=== PATIENT | female | born 1940 | race Caucasian/White ===

== ENCOUNTER 2017-09-15 15:52 | Emergency (ER) | payer MEDICARE, OTHER ==
[2017-09-15] MEDS ORDERED: Ondansetron 4 MG Tab.DIS PO ONE (16:43)
[2017-09-15] MEDS ORDERED: Ketorolac 30 MG/ML SDV IM ONE (16:43)
--- NOTE | 2017-09-15 16:49 | EDM.PDOC ---
ED HPI GENERAL MEDICAL PROBLEM - General Chief Complaint: General Stated Complaint: HEADACHE,VOMITTING Time Seen by Provider: 09/15/17 16:15 Source of Information: Reports: Patient, Family, Old Records History Limitations: Reports: No Limitations - History of Present Illness INITIAL COMMENTS - FREE TEXT/NARRATIVE: Karlie comes into [facility] ED for assessment of headaches over the past 24 hrs, associated with some nausea and emesis x 3 since midnight. There is no injury hx , no fever, chills or sweats, or hx of vascular headaches. Headache is aching, sharp at times, global, with some tenderness at both temples. She has tried Excedrin and Tylenol without benefit. She did take Amitryptiline 25 mg at 2 pm today which has improved headache sxs. She has been on this medication for over 30 years primarily to help with sleep. headache Pain Score (Numeric/FACES): 6 - Related Data Allergies Allergy/AdvReac Type Severity Reaction Status Date / Time ibuprofen AdvReac Mild Vomiting Verified 09/15/17 16:05 Home Meds: Home Meds Albuterol Sulfate [Proair Hfa] 2 inhalation IH Q6H PRN 11/14/13 [History] Meloxicam [Mobic] 7.5 mg PO BID 11/14/13 [History] Metoprolol Succinate [Toprol XL] 25 mg PO DAILY 11/14/13 [History] Multivitamin with Minerals [Multiple Vitamin] 1 tab PO DAILY 11/14/13 [History] Cholecalciferol (Vitamin D3) [Vitamin D3] 1,000 unit PO DAILY 04/23/16 [History] Simvastatin [Zocor] 40 mg PO DAILY 04/24/16 [History] Acetaminophen [Tylenol Arthritis Pain] 650 mg PO Q6H PRN 09/15/17 [History] Amitriptyline [Elavil] 25 mg PO BEDTIME 09/15/17 [History] Aspirin 81 mg PO DAILY 09/15/17 [History] Calcium Carbonate [Calcium] 1,200 mg PO DAILY 09/15/17 [History] Carboxymethylcellulose Sodium [Thera Tears] 1 drop EYEBOTH DAILY 09/15/17 [ History] Ferrous Gluconate [Iron] 300 mg PO DAILY 09/15/17 [History] L.acidoph,Paracasei, B.lactis [Probiotic] 1 cap PO DAILY 09/15/17 [History] predniSONE [Prednisone] 60 mg PO DAILY #14 tablet 09/15/17 [Rx] Past Medical History HEENT History: Reports: Hard of Hearing, Impaired Vision Cardiovascular History: Reports: Heart Murmur, High Cholesterol, Hypertension Respiratory History: Reports: Asthma Gastrointestinal History: Reports: GERD Other Gastrointestinal History: hx of c diff Genitourinary History: Reports: Urinary Incontinence Other Genitourinary History: at times Musculoskeletal History: Reports: Other (See Below) Other Musculoskeletal History: oesteomylitis Psychiatric History: Reports: Depression - Infectious Disease History Infectious Disease History: Reports: C-Difficile Social & Family History - Family History Family Medical History: Unobtainable - Tobacco Use Smoking Status *Q: Never Smoker Second Hand Smoke Exposure: No - Caffeine Use Caffeine Use: Reports: Coffee - Alcohol Use Days Per Week of Alcohol Use: 0 - Recreational Drug Use Recreational Drug Use: No ED ROS GENERAL - Review of Systems Review Of Systems: See Below Constitutional: Reports: Malaise, Decreased Appetite HEENT: Reports: No Symptoms Respiratory: Reports: No Symptoms Cardiovascular: Reports: No Symptoms Endocrine: Reports: No Symptoms GI/Abdominal: Reports: Nausea, Vomiting : Reports: No Symptoms Musculoskeletal: Reports: No Symptoms Skin: Reports: No Symptoms Neurological: Reports: Headache Psychiatric: Reports: No Symptoms Hematologic/Lymphatic: Reports: No Symptoms Immunologic: Reports: No Symptoms ED EXAM, GENERAL - Physical Exam Exam: See Below Exam Limited By: No Limitations General Appearance: Alert, WD/WN, Anxious, Mild Distress Eye Exam: Bilateral Eye: EOMI, Normal Inspection, PERRL Ears: Normal External Exam, Hearing Loss Nose: Normal Inspection Throat/Mouth: Normal Inspection, Normal Oropharynx Head: Normocephalic, Other (scalp tenderness overlying both temporalis mm) Neck: Normal Inspection, Supple, Non-Tender, Full Range of Motion Respiratory/Chest: Lungs Clear, Normal Breath Sounds, Chest Non-Tender Cardiovascular: Regular Rate, Rhythm GI/Abdominal: Normal Bowel Sounds, Soft, Non-Tender, No Organomegaly, No Distention, No Mass Back Exam: Normal Inspection Extremities: Normal Inspection Neurological: Alert, Oriented, CN II-XII Intact, Normal Cognition, Normal Gait, No Motor/Sensory Deficits Psychiatric: Normal Affect, Anxious Skin Exam: Warm, Dry, Intact, Normal Color Lymphatic: No Adenopathy Course - Vital Signs Text/Narrative:: Following assessment at the [facility] ED, I administered Toradol 30 mg and Zofran 4 mg ODT. Headache improved to a 3-4/10, and nausea subsided; screening labs were performed noting CRP 6.4, ESR 42, CBC and BMP baseline for age. In view of some tenderness overlying temporalis mm, and location for temporal vasculitis, I could not rule out GCA. This was discussed at length with patient and her sister. I have elected to begin Prednisone 60 mg qd pending appt with PCP and further evaluation. Last Recorded V/S: Last Vital Signs Temp 36.7 C 09/15/17 15:55 Pulse 105 H 09/15/17 15:55 Resp 15 09/15/17 15:55 BP 143/105 H 09/15/17 15:55 Pulse Ox 100 09/15/17 15:55 - Orders/Labs/Meds Labs: Laboratory Tests 09/15/17 09/15/17 09/15/17 Range/Units 16:52 16:52 16:52 WBC 12.2 H (4.5-12.0) X10-3/uL RBC 4.50 (3.23-5.20) x10(6)uL Hgb 13.3 D (11.5-15.5) g/dL Hct 39.5 D (30.0-51.3) % MCV 87.8 (80-96) fL MCH 29.6 (27.7-33.6) pg MCHC 33.7 (32.2-35.4) g/dL RDW 12.7 (11.5-15.5) % Plt Count 263 (125-369) X10(3)uL MPV 8.3 (7.4-10.4) fL Neut % (Auto) 80.6 (46-82) % Lymph % (Auto) 12.3 L (13-37) % Turner % (Auto) 6.5 (4-12) % Eos % (Auto) 0 L (1.0-5.0) % Baso % (Auto) 0 (0-2) % Neut # (Auto) 9.9 H (1.6-8.3) # Lymph # (Auto) 1.5 (0.6-5.0) # Turner # (Auto) 0.8 (0.0-1.3) # Eos # (Auto) 0.0 (0.0-0.8) # Baso # (Auto) 0.0 (0.0-0.2) # ESR 42 H (0-20) mm/hr Sodium 139 (135-145) mmol/L Potassium 4.2 (3.5-5.3) mmol/L Chloride 102 (100-110) mmol/L Carbon Dioxide 25 (21-32) mmol/L BUN 19 H (7-18) mg/dL Creatinine 1.1 H (0.55-1.02) mg/dL Est Cr Clr Drug Dosing 31.29 mL/min Estimated GFR (MDRD) 48 L (>60) BUN/Creatinine Ratio 17.3 (9-20) Glucose 119 H (80-116) mg/dL Calcium 10.0 (8.6-10.2) mg/dL Total Bilirubin 0.8 (0.1-1.3) mg/dL AST 26 H (5-25) IU/L ALT 27 (12-36) U/L Alkaline Phosphatase 117 H (56-112) IU/L C-Reactive Protein 6.4 H* (0.5-0.9) mg/dL Total Protein 8.7 H (6.0-8.0) g/dL Albumin 4.3 (3.2-4.6) g/dL Globulin 4.4 g/dL Albumin/Globulin Ratio 1.0 Meds: Medications Discontinued Medications Generic Name Dose Route Start Last Admin Trade Name Freq PRN Reason Stop Dose Admin Ketorolac Tromethamine 30 mg 09/15/17 16:43 09/15/17 16:57 Toradol IM 09/15/17 16:44 30 mg ONETIME ONE Administration Ondansetron HCl 4 mg 09/15/17 16:43 09/15/17 16:56 Zofran Odt PO 09/15/17 16:44 4 mg ONETIME ONE Administration Departure - Departure Time of Disposition: 18:02 Disposition: Home, Self-Care 01 Condition: Fair Clinical Impression: Headache, temporal - Discharge Information Referrals: Bridget Vergara MOTHER'S HELPER [Primary Care Provider] - Forms: ED Department Discharge - Problem List & Annotations (1) Headache, temporal SNOMED Code(s): 36129346 Code(s): R51 - HEADACHE Status: Acute Current Visit: Yes Annotation/ Comment:: Vaculitis could not be ruled out. I dispensed Prednisone 60 mg qd pending follow up with PCP. She may take Tylenol for headache sxs in the interim. - Problem List Review Problem List Initiated/Reviewed/Updated: Yes - Assessment/Plan Plan: Follow up with PCP.
[2017-09-15] MEDS ORDERED: predniSONE 20 MG Tab PO ONE (17:57)
[2017-09-15 18:23] VITALS: BP 140/84
== END 2017-09-15 18:20 | disposition home or self-care (01) ==
LOC: FB.ED 15:52
DX: R51 Headache (principal); E78.00 Pure hypercholesterolemia, unspecified; I10 Essential (primary) hypertension; Z88.6 Allergy status to analgesic agent; Z79.899 Other long term (current) drug therapy; Z79.82 Long term (current) use of aspirin
CPT/HCPCS: 36415; 80053; 85025; 85651; 86140; 96372; 99284; A9270-GY; J1885

== ENCOUNTER 2017-11-10 07:32 | Day surgery (SDC) | payer MEDICARE, OTHER ==
[~2017-11-10 07:32] MED LIST: Sodium Chloride 0.9% 10 ML Syringe FLUSH PRN
[2017-11-10] MEDS ORDERED: Propofol 200 MG/20 ML SDV IV ONE (09:30)
[2017-11-10] MEDS ORDERED: Lidocaine 1% 30 ML SDV INJECT ONE (09:30)
[2017-11-10 10:59] VITALS: BP 118/71
--- NOTE | 2017-11-11 08:53 | OR ---
DATE OF OPERATION: 11/10/2017 SURGEON: Herbie Rayo MD PREOPERATIVE DIAGNOSIS: Cataract, left eye. POSTOPERATIVE DIAGNOSIS: Cataract, left eye. PROCEDURES: Phacoemulsification of cataract left eye with placement of an Parrish, model ZCB00, 23.0 diopter, foldable posterior chamber intraocular lens. MARKETING ROTATION ASSOCIATE: None. DESCRIPTION OF PROCEDURE: Peribulbar anesthetic was performed using a mixture of 2% lidocaine with Wydase. The patient was prepped and draped in the usual fashion. A 3 mm fornix based conjunctival flap was performed at the 10 o'clock position. Hemostasis was obtained using diathermy, and a 2.8 mm grooved near clear corneal incision was then made. A stab incision was made into the anterior chamber at the 12 o'clock position and a second stab wound incision was made underlying the grooved near clear corneal incision. Viscoat was instilled into the anterior chamber, and a continuous tear capsulotomy was performed. Hydrodissection was accomplished with balanced salt solution, and the nucleus was removed in a divide and conquer fashion. The remaining cortical material was removed with the irrigation and aspiration unit. Viscoat was instilled into the anterior chamber, and an Parrish, model ZCB00, 23.0 diopter, foldable, posterior chamber intraocular lens was placed into the capsular bag, the haptics being positioned at the 3 and 9 o'clock positions. The residual Viscoat was removed from the anterior chamber and the anterior chamber reformed with balanced salt solution. The wound was checked and noted to be watertight. The conjunctiva was secured in its original position with diathermy. Alphagan and Maxitrol Ointment were then placed into the patient's eye. The patient tolerated the procedure well and it was without complication. Elapsed phacoemulsification time was 26.7 seconds. Postoperative instructions as related to activities as well as medications were reviewed with the patient. The patient was instructed to return to see me on the day following surgery for the first postoperative check. The patient was also instructed to contact me prior to that time if she were to have any problems. /[id number] DEG/MODL CC: TRACEE Pineda, PHARMACIST PER DIEM
== END 2017-11-10 11:45 | disposition home or self-care (01) ==
LOC: FB.SDS 07:32
PROVIDERS: ATTEND Ophthalmology
DX: H25.813 Combined forms of age-related cataract, bilateral (principal); I10 Essential (primary) hypertension; E78.5 Hyperlipidemia, unspecified; J45.20 Mild intermittent asthma, uncomplicated; H91.90 Unspecified hearing loss, unspecified ear; H02.403 Unspecified ptosis of bilateral eyelids; Z88.6 Allergy status to analgesic agent; Z79.899 Other long term (current) drug therapy; Z79.51 Long term (current) use of inhaled steroids
CPT/HCPCS: 00142; 66984; C1780; J2704; J7050

== ENCOUNTER 2017-12-08 07:34 | Day surgery (SDC) | payer MEDICARE, OTHER ==
[2017-12-08] MEDS ORDERED: Sodium Chloride 0.9% 10 ML Syringe FLUSH PRN (07:45)
[2017-12-08] MEDS ORDERED: Lactated Ringers 1,000 ML IV SCH (07:45)
[2017-12-08 15:03] VITALS: BP 143/89
--- NOTE | 2017-12-09 09:09 | OR ---
DATE OF OPERATION: 12/08/2017 SURGEON: Herbie Rayo MD PREOPERATIVE DIAGNOSIS: Cataract, right eye. POSTOPERATIVE DIAGNOSIS: Cataract, right eye. PROCEDURE: Phacoemulsification of cataract, right eye, with placement of an Parrish, model ZCB00, 22.5 diopters, foldable, posterior chamber intraocular lens. CHAIN HOOKER: None. DESCRIPTION OF PROCEDURE: Peribulbar anesthetic was performed using a mixture of 2% lidocaine with Wydase. The patient was prepped and draped in the usual fashion. A 3 mm fornix based conjunctival flap was performed at the 10 o'clock position. Hemostasis was obtained using diathermy, and a 2.8 mm grooved near clear corneal incision was then made. A stab incision was made into the anterior chamber at the 12 o'clock position and a second stab wound incision was made underlying the grooved near clear corneal incision. Viscoat was instilled into the anterior chamber, and a continuous tear capsulotomy was performed. Hydrodissection was accomplished with balanced salt solution, and the nucleus was removed in a divide and conquer fashion. The remaining cortical material was removed with the irrigation and aspiration unit. Viscoat was instilled into the anterior chamber, and an Parrish, model ZCB00, 22.5 diopters, foldable, posterior chamber intraocular lens was placed into the capsular bag, the haptics being positioned at the 2 and 8 o'clock positions. The residual Viscoat was removed from the anterior chamber and the anterior chamber reformed with balanced salt solution. The wound was checked and noted to be watertight. The conjunctiva was secured in its original position with diathermy. Alphagan and Maxitrol Ointment were then placed into the patient's eye. The patient tolerated the procedure well and it was without complication. Elapsed phacoemulsification time was 20.6 seconds. Postoperative instructions as related to activities as well as medications were reviewed with the patient. The patient was instructed to return to see me on the day following surgery for the first postoperative check. The patient was also instructed to contact me prior to that time if the patient was to have any problems. /[id number] DEG/MODL Cc: TRACEE Pineda, MARKETING ANALYTICS SPECIALIST
== END 2017-12-08 11:26 | disposition home or self-care (01) ==
LOC: FB.SDS 07:34
PROVIDERS: ATTEND Ophthalmology
PROC: 08RJ3JZ Replacement of Right Lens with Synthetic Substitute, Percutaneous Approach (ICD-10-PCS; principal; 2017-12-08)
DX: H26.8 Other specified cataract (principal); I10 Essential (primary) hypertension; H91.90 Unspecified hearing loss, unspecified ear; E78.5 Hyperlipidemia, unspecified; M19.90 Unspecified osteoarthritis, unspecified site; Z96.643 Presence of artificial hip joint, bilateral; J45.909 Unspecified asthma, uncomplicated; Z79.82 Long term (current) use of aspirin; Z79.51 Long term (current) use of inhaled steroids; Z79.899 Other long term (current) drug therapy; Z88.8 Allergy status to other drugs, medicaments and biological substances
CPT/HCPCS: 00142; 66984; C1780; J7050

== ENCOUNTER 2018-09-21 20:15 | Emergency (ER) | payer MEDICARE ==
[2018-09-21] MEDS ORDERED: Sodium Chloride 0.9% 10 ML Syringe FLUSH PRN (20:38)
[2018-09-21] MEDS ORDERED: Ondansetron 4 MG/2 ML SDV IVPUSH ONE (20:38)
[2018-09-21] MEDS ORDERED: fentaNYL 100 MCG/2 ML SDV IVPUSH ONE (20:50)
--- NOTE | 2018-09-21 20:56 | EDM.PDOC ---
ED HPI GENERAL MEDICAL PROBLEM - General Chief Complaint: Head Injury Stated Complaint: FELL Time Seen by Provider: 09/21/18 20:40 Source of Information: Reports: Patient History Limitations: Reports: No Limitations - History of Present Illness INITIAL COMMENTS - FREE TEXT/NARRATIVE: Karlie comes into [facility] ED with multiple injuries to the face, hands and R knee following a fall while exiting a car earlier today. There was no LOC. She developed some facial swelling and ecchymoses adjacent to the R eye, and a friend suggested an ED visit. Her tetanus vax status is current. She has taken some Tylenol for headache. - Related Data Allergies Allergy/AdvReac Type Severity Reaction Status Date / Time ibuprofen AdvReac Mild Vomiting Verified 12/08/17 08:21 SEASONAL Allergy Other Uncoded 12/08/17 08:21 Home Meds: Home Meds Albuterol Sulfate [Proair Hfa] 2 inhalation IH Q6H PRN 11/14/13 [History] Meloxicam [Mobic] 7.5 mg PO BID 11/14/13 [History] Metoprolol Succinate [Toprol XL] 25 mg PO DAILY 11/14/13 [History] Multivitamin with Minerals [Multiple Vitamin] 1 tab PO DAILY 11/14/13 [History] Cholecalciferol (Vitamin D3) [Vitamin D3] 2,000 unit PO DAILY 04/23/16 [History] Simvastatin [Zocor] 40 mg PO DAILY 04/24/16 [History] Acetaminophen [Tylenol Arthritis Pain] 650 mg PO Q6H PRN 09/15/17 [History] Amitriptyline [Elavil] 25 mg PO BEDTIME 09/15/17 [History] Aspirin 81 mg PO DAILY 09/15/17 [History] Calcium Carbonate [Calcium] 1,200 mg PO DAILY 09/15/17 [History] Carboxymethylcellulose Sodium [Thera Tears] 1 drop EYEBOTH BID 09/15/17 [History ] Ferrous Gluconate [Iron] 300 mg PO DAILY 09/15/17 [History] L.acidoph,Paracasei, B.lactis [Probiotic] 1 cap PO DAILY 09/15/17 [History] Capsaicin [Arthritis Pain Relieving] 1 dose TOP TID PRN 11/05/17 [History] Cetirizine [ZyrTEC] 10 mg PO DAILY PRN 11/05/17 [History] Fluticasone Propionate [Flonase] 2 sprays NASBOTH DAILY PRN 11/05/17 [History] Omeprazole Magnesium [Prilosec Otc] 20 mg PO DAILY PRN 11/05/17 [History] Ondansetron HCl [Ondansetron] 4 mg PO Q8HR PRN 11/05/17 [History] raNITIdine HCl [Ranitidine HCl] 75 mg PO BID PRN 11/05/17 [History] Albuterol [Ventolin 2 MG/5 ML] 3 ml NEB TID PRN 12/07/17 [History] Sauk 2 cap PO DAILY 12/07/17 [History] Magnesium Oxide [Magnesium] 400 mg PO DAILY 12/07/17 [History] Past Medical History HEENT History: Reports: Cataract, Hard of Hearing, Impaired Vision Cardiovascular History: Reports: Heart Murmur, High Cholesterol, Hypertension Respiratory History: Reports: Asthma, Other (See Below) Other Respiratory History: REACTIVE AIRWAY DISEASE Gastrointestinal History: Reports: GERD Other Gastrointestinal History: hx of c diff Genitourinary History: Reports: Urinary Incontinence Other Genitourinary History: at times THERMAL TECHNICIAN History: Reports: Musculoskeletal History: Reports: Osteoarthritis, Other (See Below) Other Musculoskeletal History: oesteomylitis Psychiatric History: Reports: Depression Endocrine/Metabolic History: Reports: Osteopenia - Infectious Disease History Infectious Disease History: Reports: C-Difficile, Chicken Pox, Measles, Mumps, Shingles - Past Surgical History HEENT Surgical History: Reports: Adenoidectomy, Cataract Surgery, Tonsillectomy GI Surgical History: Reports: Colonoscopy Female Surgical History: Reports: D&C Musculoskeletal Surgical History: Reports: Hip Replacement, Other (See Below) Other Musculoskeletal Surgeries/Procedures:: BUNIONECTOMY, ACHILLES TENDON SURGERY Social & Family History - Family History Family Medical History: Noncontributory - Caffeine Use Caffeine Use: Reports: Coffee ED ROS GENERAL - Review of Systems Review Of Systems: ROS reveals no pertinent complaints other than HPI. ED EXAM, HEAD INJURY - Physical Exam Exam: See Below Exam Limited By: No Limitations General Appearance: Alert, WD/WN, No Apparent Distress, Anxious Head: Normocephalic, Facial Abrasions (R forehead), Facial Ecchymosis (R malar surface), Facial Lacerations (superficial near R periorbital ridge) Eyes: Bilateral Eye: EOMI, Normal Inspection, PERRL Ears: Normal External Exam, Normal TMs Nose: Normal Inspection, Normal Mucousa Throat/Mouth: Normal Inspection, Normal Lips, Normal Teeth, Normal Gums, Normal Oropharynx, Normal Voice, No Airway Compromise Neck: Non-Tender, Full Range of Motion, Normal Alignment, Normal Inspection Respiratory: Lungs Clear Cardiovascular: Regular Rate, Rhythm, No Murmur Back Exam: Normal Inspection Extremities: Other (minor abrasions to both hands and R anterior knee) Neurologic: halal meat packer II-XII nml As Tested, No Motor/Sensory Deficits, Alert, Normal Mood/Affect, Oriented x 3 Skin: Warm/Dry, Ecchymosis, Other (minor abrasions as annotated above) Course - Vital Signs Text/Narrative:: No meds dispensed during ED visit. All injuries were minor. - Orders/Labs/Meds Orders: Active Orders 24 hr Category Date Time Status fentaNYL [Sublimaze] Med 09/21/18 20:50 Stop Req 50 mcg IVPUSH ONETIME ONE Departure - Departure Time of Disposition: 20:57 Disposition: Home, Self-Care 01 Condition: Fair Clinical Impression: Abrasion, multiple sites - Discharge Information *PRESCRIPTION DRUG MONITORING PROGRAM REVIEWED*: Not Applicable *COPY OF PRESCRIPTION DRUG MONITORING REPORT IN PATIENT NEGRA: Not Applicable Referrals: PCP,None [Primary Care Provider] - - Problem List & Annotations (1) Abrasion, multiple sites SNOMED Code(s): 138313778, 767766169 Code(s): T07.XXXA - UNSPECIFIED MULTIPLE INJURIES, INITIAL ENCOUNTER Status : Acute Current Visit: Yes Annotation/Comment:: I suggested local wound cares, check tetanus vax status this week with PCP, analgesic of choice. - Problem List Review Problem List Initiated/Reviewed/Updated: Yes - My Orders Last 24 Hours: My Active Orders 09/21/18 20:50 fentaNYL [Sublimaze] 50 mcg IVPUSH ONETIME ONE - Assessment/Plan Last 24 Hours: My Active Orders 09/21/18 20:50 fentaNYL [Sublimaze] 50 mcg IVPUSH ONETIME ONE Plan: Follow up with PCP if needed.
[2018-09-21 21:56] VITALS: BP 121/76
== END 2018-09-21 21:30 | disposition home or self-care (01) ==
LOC: FB.ED 20:15
DX: S60.512A Abrasion of left hand, initial encounter (principal); S60.511A Abrasion of right hand, initial encounter; E78.00 Pure hypercholesterolemia, unspecified; I10 Essential (primary) hypertension; J45.909 Unspecified asthma, uncomplicated; F32.9 Major depressive disorder, single episode, unspecified; Z88.8 Allergy status to other drugs, medicaments and biological substances; Z79.899 Other long term (current) drug therapy; Z79.82 Long term (current) use of aspirin; V49.50XA Passenger injured in collision with unspecified motor vehicles in traffic accident, initial encounter; V49.88XA Car occupant (driver) (passenger) injured in other specified transport accidents, initial encounter
CPT/HCPCS: 99283

== ENCOUNTER 2020-05-08 01:43 | Emergency (ER) | payer MEDICARE ==
[2020-05-08] MEDS ORDERED: Ondansetron 4 MG/2 ML SDV IVPUSH ONE (02:02)
[2020-05-08] MEDS ORDERED: Prochlorperazine 10 MG in Sodium Chloride 0.9% 50 ML IV ONE (02:03)
[2020-05-08] MEDS ORDERED: Dexamethasone 4 MG/ML SDV IVPUSH STA (02:04)
[2020-05-08] MEDS ORDERED: Sodium Chloride 0.9% 1,000 ML IV SCH (02:15)
[2020-05-08] MEDS: Sodium Chloride 0.9% 10 ML Syringe FLUSH PRN ×4 (02:25→07:41)
[2020-05-08] MEDS: Sodium Chloride 0.9% 1,000 ML IV SCH ×2 (02:30→03:32)
[2020-05-08] MEDS ORDERED: Potassium Chloride 20 MEQ in Premix Bag 1 BAG IV ONE ×2 (04:21→04:29)
--- NOTE | 2020-05-08 04:51 | EDM.PDOC ---
ED HPI GENERAL MEDICAL PROBLEM - General Stated Complaint: weakness Time Seen by Provider: 05/08/20 02:00 Source of Information: Reports: Patient, Family History Limitations: Reports: No Limitations - History of Present Illness INITIAL COMMENTS - FREE TEXT/NARRATIVE: Patient presented to the ED because of N/V/D and mouth sores which started 4 days ago after her first chemo due to a colon CA. There is no associated fever, chills, cough/cold. She was given IVF and Zofran at the [facility] but still her nausea is not better. 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: zofran 2030, ivf at clinic - Related Data Allergies Allergy/AdvReac Type Severity Reaction Status Date / Time ibuprofen AdvReac Mild Vomiting Verified 05/08/20 01:56 SEASONAL Allergy Other Uncoded 05/08/20 01:56 Home Meds: Home Meds Albuterol Sulfate [Proair Hfa] 2 inhalation IH Q6H PRN 11/14/13 [History] Meloxicam [Mobic] 7.5 mg PO BID 11/14/13 [History] Metoprolol Succinate [Toprol XL] 25 mg PO DAILY 11/14/13 [History] Multivitamin with Minerals [Multiple Vitamin] 1 tab PO DAILY 11/14/13 [History] Cholecalciferol (Vitamin D3) [Vitamin D3] 2,000 unit PO DAILY 04/23/16 [History] Simvastatin [Zocor] 40 mg PO DAILY 04/24/16 [History] Acetaminophen [Tylenol Arthritis Pain] 650 mg PO Q6H PRN 09/15/17 [History] Amitriptyline [Elavil] 25 mg PO BEDTIME 09/15/17 [History] Aspirin 81 mg PO DAILY 09/15/17 [History] Calcium Carbonate [Calcium] 1,200 mg PO DAILY 09/15/17 [History] Carboxymethylcellulose Sodium [Thera Tears] 1 drop EYEBOTH BID 09/15/17 [History] Ferrous Gluconate [Iron] 300 mg PO DAILY 09/15/17 [History] L.acidoph,Paracasei, B.lactis [Probiotic] 1 cap PO DAILY 09/15/17 [History] Capsaicin [Arthritis Pain Relieving] 1 dose TOP TID PRN 11/05/17 [History] Cetirizine [ZyrTEC] 10 mg PO DAILY PRN 11/05/17 [History] Fluticasone Propionate [Flonase] 2 sprays NASBOTH DAILY PRN 11/05/17 [History] Omeprazole Magnesium [Prilosec Otc] 20 mg PO DAILY PRN 11/05/17 [History] ondansetron HCL [Ondansetron] 4 mg PO Q8HR PRN 11/05/17 [History] raNITIdine HCl [Ranitidine HCl] 75 mg PO BID PRN 11/05/17 [History] Albuterol [Ventolin 2 MG/5 ML] 3 ml NEB TID PRN 12/07/17 [History] [place] 2 cap PO DAILY 12/07/17 [History] Magnesium Oxide [Magnesium] 400 mg PO DAILY 12/07/17 [History] Lidocaine 2% [Xylocaine 2% Jelly] 3 ml PO TID PRN #120 ml 05/08/20 [Rx] dexAMETHasone [Dexamethasone] 4 mg PO Q6H PRN #30 tab 05/08/20 [Rx] Past Medical History HEENT History: Reports: Cataract, Hard of Hearing, Impaired Vision Cardiovascular History: Reports: Heart Murmur, High Cholesterol, Hypertension Respiratory History: Reports: Asthma, Other (See Below) Other Respiratory History: REACTIVE AIRWAY DISEASE Gastrointestinal History: Reports: GERD Other Gastrointestinal History: hx of c diff Genitourinary History: Reports: Urinary Incontinence 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: Musculoskeletal History: Reports: Osteoarthritis, Other (See Below) Other Musculoskeletal History: oesteomylitis Psychiatric History: Reports: Depression Endocrine/Metabolic History: Reports: Osteopenia - Infectious Disease History Infectious Disease History: Reports: C-Difficile, Chicken Pox, Measles, Mumps, Shingles - Past Surgical History HEENT Surgical History: Reports: Adenoidectomy, Cataract Surgery, Tonsillectomy GI Surgical History: Reports: Colonoscopy Female Surgical History: Reports: D&C Musculoskeletal Surgical History: Reports: Hip Replacement, Other (See Below) Other Musculoskeletal Surgeries/Procedures:: BUNIONECTOMY, ACHILLES TENDON SURGERY Social & Family History - Family History Family Medical History: No Pertinent Family History - Caffeine Use Caffeine Use: Reports: Coffee ED ROS GENERAL - Review of Systems Review Of Systems: See Below Constitutional: Reports: No Symptoms HEENT: Reports: No Symptoms Respiratory: Reports: No Symptoms Cardiovascular: Reports: No Symptoms Endocrine: Reports: No Symptoms GI/Abdominal: Reports: Diarrhea, Nausea, Vomiting Musculoskeletal: Reports: No Symptoms Skin: Reports: No Symptoms Neurological: Reports: No Symptoms Psychiatric: Reports: No Symptoms ED EXAM, GENERAL - Physical Exam Exam: See Below Exam Limited By: No Limitations General Appearance: Alert, No Apparent Distress Eye Exam: Bilateral Eye: PERRL Ears: Normal External Exam Nose: Normal Inspection, Normal Mucosa Throat/Mouth: Normal Inspection, Normal Lips, Normal Teeth, Other (oral ulcers) Head: Other Neck: Normal Inspection, Supple, Non-Tender Respiratory/Chest: No Respiratory Distress, Lungs Clear, Normal Breath Sounds, No Accessory Muscle Use GI/Abdominal: Normal Bowel Sounds, Soft, Non-Tender, No Organomegaly, No Distention Back Exam: Normal Inspection, Full Range of Motion Extremities: Normal Inspection, Normal Range of Motion, Non-Tender Neurological: Alert, Oriented, CN II-XII Intact, Normal Cognition, Normal Gait Psychiatric: Normal Affect, Normal Mood Skin Exam: Warm, Dry, Intact Course - Vital Signs Text/Narrative:: Lab result reviewed with patient and her daughter NS 1 L bolus x2 KKCL 20 MEQ IV x2 doses Zofran 4 mg IVx1 Compazine 10 mg IV x1 Decadron 10 mg IV x1 Last Recorded V/S: Last Vital Signs Temp 36.8 C 05/08/20 07:45 Pulse 98 05/08/20 07:45 Resp 18 05/08/20 07:45 BP 132/70 05/08/20 07:45 Pulse Ox 98 05/08/20 07:45 - Orders/Labs/Meds Orders: Active Orders 24 hr Category Date Time Status Saline Lock Insert [OM.PC] Routine Oth 05/08/20 02:00 Ordered Labs: Laboratory Tests 05/08/20 05/08/20 05/08/20 Range/Units 02:30 02:30 05:10 WBC 6.9 (3.0-10.3) x10-3/uL RBC 3.52 L (3.60-5.20) x10(6)uL Hgb 8.5 L (11.4-15.5) g/dL Hct 27.0 L (34.2-48.2) % MCV 76.8 (76.7-100.5) fL MCH 24.1 (23.9-33.9) pg MCHC 31.4 L (31.9-34.8) g/dL RDW 16.9 H (12.3-16.5) % Plt Count 294 (151-488) x10(3)uL MPV 7.0 L (7.1-12.4) fL Neut % (Auto) 88.1 H (30.8-76.2) % Lymph % (Auto) 10.5 L (18.4-52.1) % [place] % (Auto) 0.7 L (4.4-15.7) % Eos % (Auto) 0.6 (0.6-8.1) % Baso % (Auto) 0.1 L (0.2-1.5) % Neut # (Auto) 6.1 (1.5-6.3) x10-3/uL Lymph # (Auto) 0.7 L (1.0-4.4) x10-3/uL [place] # (Auto) 0.1 L (0.3-1.0) x10-3/uL Eos # (Auto) 0.0 (0.0-0.8) x10-3/uL Baso # (Auto) 0.0 (0.0-0.1) x10-3/uL Sodium 134 L (135-145) mmol/L Potassium 3.0 L D (3.5-5.3) mmol/L Chloride 98 L (100-110) mmol/L Carbon Dioxide 19 L (21-32) mmol/L BUN 33 H D (7-18) mg/dL Creatinine 1.3 H (0.55-1.02) mg/dL Est Cr Clr Drug Dosing 26.39 mL/min Estimated GFR (MDRD) 39 L (>60) BUN/Creatinine Ratio 25.4 H (9-20) Glucose 150 H (80-116) mg/dL Calcium 8.7 (8.6-10.2) mg/dL Total Bilirubin 0.5 (0.1-1.3) mg/dL AST 61 H D (5-25) IU/L ALT 55 H D (12-36) U/L Alkaline Phosphatase 94 (56-112) IU/L Total Protein 7.7 (6.0-8.0) g/dL Albumin 2.5 L (3.2-4.6) g/dL Globulin 5.2 g/dL Albumin/Globulin Ratio 0.5 SARS-CoV-2 RNA (DAVID) Negative (NEGATIVE) Meds: Medications Discontinued Medications Generic Name Dose Route Start Last Admin Trade Name Freq PRN Reason Stop Dose Admin Dexamethasone 10 mg 05/08/20 02:04 05/08/20 02:52 Decadron IVPUSH 05/08/20 02:05 10 mg NOW STA Administration Heparin Sodium (Porcine) 500 units 05/08/20 07:31 05/08/20 07:41 Heparin Lock Flush 100 Units/Ml FLUSH 500 units ASDIRECTED PRN Administration Other Sodium Chloride 1,000 mls @ 999 mls/hr 05/08/20 02:15 05/08/20 03:32 Normal Saline IV 999 mls/hr ASDIRECTED BRYSON Administration Prochlorperazine Edisylate 10 52 mls @ 150 mls/hr 05/08/20 02:03 05/08/20 02:50 mg/ Sodium Chloride IV 05/08/20 02:23 150 mls/hr ONETIME ONE Administration Sodium Chloride 1,000 mls @ 999 mls/hr 05/08/20 02:15 Normal Saline IV ASDIRECTED BRYSNO Potassium Chloride 20 meq/ 100 mls @ 50 mls/hr 05/08/20 04:21 05/08/20 06:15 Premix IV 05/08/20 06:20 50 mls/hr ONETIME ONE Administration Potassium Chloride 20 meq/ 100 mls @ 50 mls/hr 05/08/20 04:29 05/08/20 05:15 Premix IV 05/08/20 06:28 50 mls/hr ONETIME ONE Administration Ondansetron HCl 4 mg 05/08/20 02:02 05/08/20 03:33 Zofran IVPUSH 05/08/20 02:03 4 mg ONETIME ONE Administration Sodium Chloride 10 ml 05/08/20 02:00 05/08/20 07:41 Saline Flush FLUSH 10 ml ASDIRECTED PRN Administration Keep Vein Open Departure - Departure Time of Disposition: 07:00 Disposition: Home, Self-Care 01 Condition: Good Clinical Impression: Dehydration, Hypokalemia - Discharge Information Prescriptions: dexAMETHasone [Dexamethasone] 4 mg PO Q6H PRN #30 tab PRN Reason: Nausea Lidocaine 2% [Xylocaine 2% Jelly] 3 ml PO TID PRN #120 ml PRN Reason: Pain Instructions: Hypokalemia, Dehydration, Adult, [id number] Referrals: Leander Lima MD [Primary Care Provider] - Additional Instructions: Please read discharge instructions on dehydration and low potassium Continue your medicines for nausea Decadron 4 mg every 6 hours as needed for nausea Viscous lidocaine 3ml mix with 3 ml of water swish and gurgle for 3 minutes then spit or swallow for pain in your mouth and throat Drink 2-3 liters of water a day Follow up as needed Sepsis Event Note (ED) - Focused Exam Vital Signs: Vital Signs Temp Pulse Resp BP Pulse Ox 05/08/20 07:45 36.8 C 98 18 132/70 98 05/08/20 05:15 105 H 18 136/71 98 - My Orders Last 24 Hours: My Active Orders 05/08/20 02:00 Saline Lock Insert [OM.PC] Routine - Assessment/Plan Last 24 Hours: My Active Orders 05/08/20 02:00 Saline Lock Insert [OM.PC] Routine
[2020-05-08 08:21] VITALS: BP 132/70; PULSE 98
== END 2020-05-08 07:55 | disposition home or self-care (01) ==
LOC: FB.ED 01:43
DX: E86.0 Dehydration (principal); E87.6 Hypokalemia; I10 Essential (primary) hypertension; E78.00 Pure hypercholesterolemia, unspecified; J45.909 Unspecified asthma, uncomplicated; K21.9 Gastro-esophageal reflux disease without esophagitis; M19.90 Unspecified osteoarthritis, unspecified site; Z79.82 Long term (current) use of aspirin; Z79.899 Other long term (current) drug therapy; Z88.6 Allergy status to analgesic agent; Z91.048 Other nonmedicinal substance allergy status; Z20.828 Contact with and (suspected) exposure to other viral communicable diseases
CPT/HCPCS: 80053; 85025; 96365; 96366; 96367; 96375; 99284-25; J0780; J1100; J1642; J2405; J3480; J7030; U0002

== ENCOUNTER 2020-08-31 12:07 | Inpatient (IN) | payer MEDICARE ==
[2020-08-31] MEDS ORDERED: Albuterol 8 GM Inhaler INH PRN (13:00)
[2020-08-31] MEDS: Prochlorperazine 10 MG Tab PO PRN ×2 (13:35→23:36)
--- NOTE | 2020-08-31 13:56 | PCM.HP.2 ---
H&P History of Present Illness - General Date of Service: 08/31/20 Admit Problem/Dx: Admission Diagnosis/Problem Admission Diagnosis/Problem Rehabilitation therapy Source of Information: Patient, Family, Provider (Dr Menezes) - History of Present Illness Initial Comments - Free Text/Narative: Karlie presents for swing bed admission for rehab therapy services from [facility]. She was admitted there for nausea, vomiting, acute kidney injury and diarrhea secondary to chemotherapy on 08/17. She had been on Lomotil for persistent diarrhea, once that was discontinued in hospital her vomiting stopped. She still gets nauseous prior to meals and her medications. Her metoprolol was discontinued due to hypotension. 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 Small bruise on lateral right knee. Does not feel it is giving way or unstable. Denies any sinus symptoms, sore throat, shortness of breath, chest pain, cough, change in bladder habits. She does have dry mouth but no oral sores like when she had chemo therapy. Her daughter Fatmata stated her port was de-accessed last night, they put in peripheral IV which was discontinued this morning. Met with palliative care team yesterday, discussed going on hospice vs rehab for her weakness, Karlie and her family decided to try short term rehab then transfer to [facility] on discharge with palliative care to start. She is a DNR/DNI. - Related Data Allergies/Adverse Reactions: Allergies Allergy/AdvReac Type Severity Reaction Status Date / Time ibuprofen AdvReac Mild Vomiting Verified 05/08/20 01:56 SEASONAL Allergy Other Uncoded 05/08/20 01:56 Home Medications: Home Meds Albuterol Sulfate [Proair Hfa] 2 inhalation IH Q6H PRN 11/14/13 [History] Acetaminophen [Tylenol Arthritis Pain] 650 mg PO BID PRN 09/15/17 [History] Omeprazole Magnesium [Prilosec Otc] 20 mg PO DAILY@0600 11/05/17 [History] Carboxymethylcellulose Sodium [Thera Tears] 1 drop EYEBOTH BID 08/31/20 [History] Loperamide [Imodium] 2 mg PO ASDIRECTED PRN 08/31/20 [History] Ondansetron [Zofran Odt] 8 mg PO Q8H PRN 08/31/20 [History] Prochlorperazine [Compazine] 10 mg PO QID PRN 08/31/20 [History] Salt And Soda Oral Mouth Rinse 5 ml PO QID PRN 08/31/20 [History] Past Medical History HEENT History: Reports: Cataract, Hard of Hearing, Impaired Vision Cardiovascular History: Reports: Heart Murmur, High Cholesterol, Hypertension, Other (See Below) Other Cardiovascular History: rheumatic fever as a teen ager. Respiratory History: Reports: Asthma, Other (See Below) Other Respiratory History: REACTIVE AIRWAY DISEASE Gastrointestinal History: Reports: GERD Other Gastrointestinal History: hx of c diff Genitourinary History: Reports: Urinary Incontinence Other Genitourinary History: at times, CKD stage III, PANDA this admission to [place]. 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: Musculoskeletal History: Reports: Osteoarthritis, Other (See Below) Other Musculoskeletal History: oesteomylitis Psychiatric History: Reports: Depression Endocrine/Metabolic History: Reports: Osteopenia Oncologic (Cancer) History: Reports: Colon - Infectious Disease History Infectious Disease History: Reports: C-Difficile, Chicken Pox, Measles, Mumps, Shingles - Past Surgical History HEENT Surgical History: Reports: Adenoidectomy, Cataract Surgery, Tonsillectomy Cardiovascular Surgical History: Reports: None Respiratory Surgical History: Reports: None GI Surgical History: Reports: Colonoscopy Female Surgical History: Reports: D&C Musculoskeletal Surgical History: Reports: Hip Replacement, Other (See Below) Other Musculoskeletal Surgeries/Procedures:: BUNIONECTOMY, ACHILLES TENDON SURGERY Social & Family History - Family History Family Medical History: No Pertinent Family History - Caffeine Use Caffeine Use: Reports: None H&P Review of Systems - Review of Systems: Review Of Systems: Comprehensive ROS is negative, except as noted in HPI. Exam - Exam Exam: See Below - Vital Signs Vital Signs: Last Vital Signs Temp 97.3 F 08/31/20 12:21 Pulse 92 08/31/20 12:21 Resp 18 08/31/20 12:21 BP 116/74 08/31/20 12:21 Pulse Ox 97 08/31/20 12:21 Weight: 125 lb 4 oz - Exam General: Alert, Oriented, Cooperative HEENT: PERRLA, Conjunctiva Clear, EOMI, Hearing Intact, Nares Patent, Normal Nasal Septum. No: Mucosa Moist & Eagar (dry mucous membranes) Neck: Supple, Trachea Midline. No: Lymphadenopathy Lungs: Clear to Auscultation, Normal Respiratory Effort, Decreased Breath Sounds (bibasilar). No: Crackles, Wheezing Cardiovascular: Regular Rate, Regular Rhythm, Systolic Murmur GI/Abdominal Exam: Soft, Non-Tender, No Distention, Abnormal Bowel Sounds (hyperactive BS x 4) (Female) Exam: Deferred Rectal (Female) Exam: Deferred Extremities: Joint Swelling (right knee), Limited Range of Motion (right knee). No: Increased Warmth, Redness Skin: Warm, Dry, Intact, Ecchymosis (right lateral knee) Neurological: Cranial Nerves Intact Neuro Extensive - Mental Status: Alert, Oriented x3, Normal Mood/Affect Sepsis Event Note - Evaluation Sepsis Screening Result: No Definite Risk - Focused Exam Vital Signs: Vital Signs Temp Pulse Resp BP Pulse Ox 08/31/20 12:21 97.3 F 92 18 116/74 97 - Problem List (1) Weakness SNOMED Code(s): 70045927 ICD Code: R53.1 - WEAKNESS Status: Acute Current Visit: Yes (2) Cancer of sigmoid Status: Acute Current Visit: Yes (3) Cancer of duodenum SNOMED Code(s): 049299243 ICD Code: C17.0 - MALIGNANT NEOPLASM OF DUODENUM Status: Acute Current Visit: Yes (4) Chronic diarrhea SNOMED Code(s): 620179215 ICD Code: K52.9 - NONINFECTIVE GASTROENTERITIS AND COLITIS, UNSPECIFIED Status: Chronic Current Visit: Yes (5) Palliative care status SNOMED Code(s): 698512257 ICD Code: Z51.5 - ENCOUNTER FOR PALLIATIVE CARE Status: Acute Current Visit: Yes Problem List Initiated/Reviewed/Updated: Yes Orders Last 24hrs: Active Orders 24 hr Category Date Time Status Patient Status [ADT] Routine ADT 08/31/20 12:55 Active Brace [Immobilizer] [RC] ASDIRECTED Care 08/31/20 13:33 Active Cooling Warming Measures [RC] ASDIRECTED Care 08/31/20 13:32 Active Dietary Supplements [RC] BIDAC Care 08/31/20 12:54 Active Height and Weight [RC] WEEKLY Care 08/31/20 12:55 Active Oxygen Therapy [RC] PRN Care 08/31/20 12:55 Active RT Post Treatment Assessment [RC] Click to Edit Care 08/31/20 13:02 Active Up With Assistance [RC] ASDIRECTED Care 08/31/20 12:54 Active Up to Chair [RC] ASDIRECTED Care 08/31/20 12:54 Active VTE/DVT Education [RC] Per Unit Routine Care 08/31/20 12:55 Active Vital Signs [RC] PER UNIT ROUTINE Care 08/31/20 12:55 Active OT Evaluation and Treatment [CONS] Routine Cons 08/31/20 12:54 Active PT Evaluation and Treatment [CONS] Routine Cons 08/31/20 12:54 Active Soft Diet [DIET] Diet 08/31/20 Lunch Active Acetaminophen [Tylenol Arthritis Pain] Med 08/31/20 13:00 Active 650 mg PO BID PRN Albuterol [Ventolin HFA] Med 08/31/20 13:00 Active 0 gm INH Q6H PRN Loperamide [Imodium] Med 08/31/20 13:00 Active 2 mg PO ASDIRECTED PRN Menthol/Methyl Salicylate [Icy Hot Cream] Med 08/31/20 13:43 Active 0 gm TOP QID PRN Ondansetron [Zofran ODT] Med 08/31/20 13:02 Active 8 mg PO Q8H PRN Pantoprazole [ProTONIX] Med 09/01/20 06:00 Active 40 mg PO DAILY@0600 Polyvinyl Alcohol [LiquiTears 1.4% Ophth Soln] Med 08/31/20 21:00 Active 0 ml EYEBOTH BID Prochlorperazine [Compazine] Med 08/31/20 13:02 Active 10 mg PO QID PRN Antiembolic Hose [OM.PC] Per Unit Routine Oth 08/31/20 12:57 Ordered Ice Bag [Ice Therapy] [OM.PC] Routine Oth 08/31/20 13:32 Ordered Oral Care [OM.PC] Routine Oth 08/31/20 13:02 Ordered Resuscitation Status Routine Resus Stat 08/31/20 12:54 Ordered Medication Orders Acetaminophen (Acetaminophen 650 Mg Tab.Er) 650 mg PO BID PRN PRN Reason: Pain Albuterol (Albuterol 8 Gm Inhaler) 0 gm INH Q6H PRN PRN Reason: Dyspnea Artificial Tears (Polyvinyl Alcohol 1.4% Ophth Soln 15 Ml Bottle) 0 ml EYEBOTH BID BRYSON Loperamide HCl (Loperamide 2 Mg Cap) 2 mg PO ASDIRECTED PRN PRN Reason: Diarrhea Methyl Salicylate (Menthol/Methyl Salicylate 85 Gm Tube) 0 gm TOP QID PRN PRN Reason: PAIN Ondansetron HCl (Ondansetron 8 Mg Tab.Dis) 8 mg PO Q8H PRN PRN Reason: Nausea Pantoprazole Sodium (Pantoprazole 40 Mg Tab.Cr) 40 mg PO DAILY@0600 BRYSON Prochlorperazine Maleate (Prochlorperazine 10 Mg Tab) 10 mg PO QID PRN PRN Reason: Nausea/Vomiting Last Admin: 08/31/20 13:35 Dose: 10 mg Documented by: BHAVANA Assessment/Plan Comment:: 1. Admit to swing bed for rehab services for weakness 2/2 sigmoid/duodenal cancer, chronic diarrhea. 2. Weakness: PT/OT evaluate & treat. 3. Right knee pain/effusion: knee sleeve to right knee on during the day & off a t night, Muscle rub qid as needed pain. Ice therapy qid as needed. 4. Chronic diarrhea: Imodium as needed. Soft diet. 5. Diet: Soft, dietary supplement bid. 6. Activity: up to chair tid, up with assistance. 7. CODE STATUS: DNR/DNI. 8. Discharge planning: Discharge to [facility] with home health palliative care. - Mortality Measure Prognosis:: Poor
[2020-08-31] MEDS: Menthol/Methyl Salicylate 85 GM Tube TOP PRN (13:59)
[2020-08-31] MEDS: Loperamide 2 MG Cap PO PRN ×2 (15:48→23:36)
[2020-08-31] MEDS: Ondansetron 8 MG Tab.DIS PO PRN (18:31)
[2020-08-31] MEDS: Polyvinyl Alcohol 1.4% Ophth Soln 15 ML Bottle EYEBOTH SCH (21:54)
[2020-09-01] MEDS: Pantoprazole 40 MG Tab.CR PO SCH (06:46)
[2020-09-01] MEDS: Ondansetron 8 MG Tab.DIS PO PRN ×2 (07:45→17:39)
[2020-09-01] MEDS: Loperamide 2 MG Cap PO PRN ×5 (07:46→21:52)
[2020-09-01] MEDS: Polyvinyl Alcohol 1.4% Ophth Soln 15 ML Bottle EYEBOTH SCH ×2 (09:16→21:52)
[2020-09-01] MEDS: Prochlorperazine 10 MG Tab PO PRN ×2 (11:30→21:55)
[2020-09-01] MEDS: Menthol/Methyl Salicylate 85 GM Tube TOP PRN (14:15)
[2020-09-02] MEDS: Pantoprazole 40 MG Tab.CR PO SCH (06:19)
[2020-09-02] MEDS: Ondansetron 8 MG Tab.DIS PO PRN ×2 (07:49→16:45)
[2020-09-02] MEDS: Polyvinyl Alcohol 1.4% Ophth Soln 15 ML Bottle EYEBOTH SCH ×3 (08:14→20:46)
[2020-09-02] MEDS: Loperamide 2 MG Cap PO PRN ×3 (11:32→16:45)
[2020-09-02] MEDS: Prochlorperazine 10 MG Tab PO PRN ×2 (11:32→20:46)
[2020-09-03] MEDS: Pantoprazole 40 MG Tab.CR PO SCH (05:26)
[2020-09-03] MEDS: Menthol/Methyl Salicylate 85 GM Tube TOP PRN (05:36)
[2020-09-03] MEDS: Loperamide 2 MG Cap PO PRN ×2 (05:39→16:55)
[2020-09-03] MEDS: Prochlorperazine 10 MG Tab PO PRN ×2 (07:57→16:55)
[2020-09-03] MEDS: Acetaminophen 650 MG Tab.ER PO PRN ×2 (07:57→16:55)
[2020-09-03] MEDS: Polyvinyl Alcohol 1.4% Ophth Soln 15 ML Bottle EYEBOTH SCH ×2 (08:02→20:01)
--- OUTSIDE RECORDS SUMMARY | 2020-09-03 13:22 | XMSREPORT ---
:1940 Author Organization [facility] and [facility] s Address [facility] [place] [address] Care Team Providers Name Role Phone Provider, Attributed RESOURCE Attributed Provider Unavailab radha Lima MD Primary Care Provider Reason for Visit Reason Comments Dehydration Pt states she is on chemo an d has been having nausea and vomiting even with anti nausea medications . Pt states she is dehydrated and has not been able to keep much down since Thursday. Auth/Cert Status Reason Specialty Diagnoses / Procedures Referred By Elsie mendoza Referred To Contact Encounter Details Date Type Department Care Team Description 08/26/2020 - [facility] [address] [place] [address] [phone] PANDA (acute kidney 08/31/2020 Center [facility] Surgical ThondapiRiley MD [address] [place] [address] [phone] injury) ([facility]) [address] [place] [address] Bebe Menezes MD [address] [place] [address] [phone] [place] [address] Allergies Active Allergy Reactions Severity Noted Date Comments Atorvastatin Other (Specify in Comments) 10/06/2018 Ibuprofen Nausea and Vomiting Low 04/23/2016 Seasonal Unknown/Not Verified 05/05/2016 Simvastatin Other (Specify in Comments) 10/06/2018 documented as of this encounter (statuses as of 08/31/2020) Medications Medication Sig Dispensed Refills Start End Status Date Date albuterol HFA Inhale 2 0 Active (PROVENTIL,PROAIR,VENTOLI puffs orally N) 108 (90 BASE) MCG/ACT every 6 inhaler hours as needed for shortness of breath Shake well before using. carboxymethylcellulose Place 1 drop 0 Active (THERATEARS) 0.25 % SOLN into both ophthalmic solution eyes 2 times a day acetaminophen (TYLENOL Take 650 mg 0 Active ARTHRITIS) 650 mg CR by mouth 2 tablet times a day as needed ondansetron (ZOFRAN ODT) Take 1 30 tablet 1 05/02/20 Active 8 mg dispersible tablet (8 20 tabletIndications: Nausea mg) by mouth Every 8 hours as needed for nausea Dissolve tablet on tongue. salt and soda ORAL mouth 5mL qid sip 300 mL 0 05/29/20 Active rinse SOLNIndications: and swish 20 Mucositis due to antineoplastic therapy prochlorperazine Take 1 50 tablet 3 06/12/20 Act diana (COMPAZINE) 10 mg tablet (10 20 tabletIndications: mg) by mouth Duodenal cancer (HCC), 4 times a Malignant neoplasm of day as sigmoid colon (HCC) needed for nausea or vomiting loperamide (IMODIUM) 2 mg Take 2 caps 100 capsule 3 06/12/20 Active capsuleIndications: after the 20 Duodenal cancer (HCC), first loose Malignant neoplasm of stool, then sigmoid colon (HCC) 1 cap after each loose stool, but no more than 8 caps in 24 hours. omeprazole (PRILOSEC) 20 Take 20 mg 0 06/09/20 Active mg capsule by mouth 1 20 time a day in the morning metoprolol succinate Take 25 mg 11 04/18/2008/31/ Discontinued (TOPROL XL) 25 mg SR by mouth 1 2020 (Stop Taking tablet (24 hr) time per day at Discharge) Do not crush or chew - generic Toprol-XL capecitabine (XELODA) 500 Take 3 84 tablet 0 08/10/1908/13 9/ Discontinued MG tabletIndications: tablets 2020 (Stop Taking Duodenal cancer (HCC), (1,500 mg) at Discharge) Malignant neoplasm of by mouth 2 sigmoid colon (HCC) times a day for 28 doses on days 1-14 of each 21 day cycle. 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 difficile diarrhea 12/31/2015 Overview: Overview: + C. Diff Stool 12/28/15 + C. 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 06/12/2020 Mucositis 05/22/2020 06/12/2020 Oropharyngeal candidiasis 05/14/2020 06/12/2020 Mucositis due to antineoplastic therapy 05/14/2020 05/18/2020 Hypokalemia 05/10/2020 05/18/2020 Chemotherapy induced diarrhea 05/10/2020 05/18/2020 documented as of this encounter (statuses as of 08/31/2020) Immunizations Name Administration Dates Next Due FLU VACCINE HIGH DOSE 65YR+(Fluzone) 04/04/2020 documented as of this encounter Social History Tobacco Use Types Packs/Day Years Used Date Never Smoker Smokeless Tobacco: Never Used Alcohol Use Drinks/Week oz/Week Comments Not Currently Alcohol Habits Answer Date Recorded How often do you have a drink containing alcohol? Never 04/27/2020 How many drinks containing alcohol do you have on a typical Not asked day when you are drinking? How often do you have six or more drinks on one occasion? No t asked Sex Assigned at Date Recorded Not on file documented as of this encounter Last Filed Vital Signs Vital Sign Reading Time Taken Comments Blood Pressure 138/88 08/31/2020 9:32 AM CDT Pulse 81 08/31/2020 9:32 AM CDT Temperature 36.3 C (97.4 F) 08/31/2020 9:32 AM CDT Respiratory Rate 17 08/31/2020 9:32 AM CDT Oxygen Saturation 96% 08/31/2020 9:32 AM CDT Inhaled Oxygen Concentration - - Weight 55.8 kg (123 lb) 08/27/2020 1:00 AM CDT Height 157.5 cm (5' 2") 08/27/2020 1:17 AM CDT Body Mass Index 22.5 08/27/2020 1:00 AM CDT documented in this encounter Discharge Summaries Not on filedocumented in this encounter Discharge Instructions Earlene West RN - 08/28/2020[facility] Nurse: or Discharge Instructions for Acute Kidney Injury You have been diagnosed with acute kidney injury. This means that your kidneys are not working properly. When both kidneys are healthy, they help filter out fluid and waste from the blood and body.Acute kidney injury has many causes. These include urinary blockages, infection, lack of enough blood supply, and medicines that can injurekidneys. In some cases, acute kidney injury is short- term (temporary). This type lasts several days to a few months. This is because the kidney can repair itself. But acute kidney injury can also result in chronic kidney disease or end stage renal failure. Here aresome instructions for you to follow as you recover. Home care Follow any instructions for eating and drinking given to you by your healthcare provider. ? Drink less fluid, if instructed by your healthcare provider. ? Keep a record of everything you eat and drink. Measure the amount of urine and stool you have each day. Weigh yourself every day, at the same time of day, and in the same kind of clothes. Keep a daily record of your daily weights. Take your temperature every day. Keep a record of the results. Learn to take your own blood pressure (BP). Your healthcare provider can teach you how to correctly measure your BP. Keep a record of your results. Bring the record to your follow-up appointments. Ask your healthcare provider when you should seek emergency medical attention. Your provider will tellyou what blood pressure reading is dangerous. Stay away from people who have infections. This includes people with colds, bronchitis, or skin conditions. Practice good personalhygiene. Wash your hands often. This is especially important if you have a catheter in place when you leave the hospital. Doing so helps keep you safe from infection. Take your medicines exactly as directed. You may need frequent blood and urine tests. These are done to monitor your kidney function. Follow-up care Follow up with your healthcare provider, or as advised. When to call your healthcare provider Call yourhealthcare providerright away if you have any of these: Signs of bladder infection, such as urinating more often, burning or pain when you pee, pain above your pubic bone, blood in your urine, or trouble starting your urine stream Signs of infection around your catheter, such as redness, swelling, warmth, or fluid leaking Rapid weight loss or weight gain, such as 3pounds or more in 24 hours or 6 pounds or more in 7 days Fever above 100.4 F ( 38C ) or as directed by your healthcare provider Chills Muscle aches Night sweats Very little or no urine output Swelling of your hands, legs, or feet Back pain Abdominal pain Extreme tiredness [email or web address] last reviewed this educational content on 10/14/201919997792-0683 [employer]. All rights reserved. This information is not intended as a substitute for professional medical care. Always follow your healthcare professional's instructions. Dehydration The human body is comprised largely of water. If you lose more fluids than you take in, you can become dehydrated. This means there is not enough fluid in your body for it to function right. Mild dehydration can cause weakness, confusion, or muscle cramps. In severe cases, it can lead to kidney damage, brain damage, and even . That's why getting treatment right away is crucial. Risk factors Anyone can become dehydrated. But babies, children, and older adults are at greatest risk. You are most likely to lose fluids with severe vomiting, diarrhea, or a fever. Exercising or working hardespecially in hot weathercan also cause extra fluid loss. Using certain medicines such as water pills (diuretics) that make you urinate more also can raise your risk, particularly in the hot summer months. What to do Drinking liquids is the best way to prevent dehydration. Water is best, but juice or frozen pops canalso help. For adults, don't drink liquids that contain caffeine or alcohol to rehydrate. These drinks will cause you to urinate more, increasing your risk for more fluid loss. Your healthcare providermay suggest drinking electrolyte solutions. These put back electrolytes that may be lost along with the fluid. When to go to the emergency room (ER) Go to an ER right away for these symptoms: Adults Very dark urine and little or no urine output Dizziness, weakness, confusion, fainting Children Sunken eyes For babies, sunken soft spot (fontanelle) on the head Little or no urine output (for babies, no wet diaper in 8 hours) Very dark urine Skin that doesn't bounce back quickly when pinched Crying without tears Lethargy, decreased activity, or increased sleepiness What to expect in the ER Your blood pressure, temperature, and heart rate will be checked. You may have blood or urine tests done. The main treatment for dehydration is fluids. You may be given these to drink. Or you may get them through a vein in your arm. You also may be treated for diarrhea, vomiting, or a high fever. [email or web address] last reviewed this educational content on 10/14/201919998265-2937 [employer]. All rights reserved. This information is not intended as a substitute for professional medical care. Always follow your healthcare professional's instructions. documented in this encounter Medications at Time of Discharge Medication Sig Dispensed Refills Start Date End Date omeprazole (PRILOSEC) 20 mg Take 20 mg by 0 06/09 capsule mouth 1 time a day in the morning prochlorperazine (COMPAZINE) Take 1 tablet 50 tablet 3 05/16 10 mg tabletIndications: (10 mg) by Duodenal cancer (HCC), mouth 4 times a Malignant neoplasm of sigmoid day as needed colon (HCC) for nausea or vomiting loperamide (IMODIUM) 2 mg Take 2 caps 100 capsule 3 06/12/20 20 capsuleIndications: Duodenal after the first cancer (HCC), Malignant loose stool, neoplasm of sigmoid colon then 1 cap (HCC) after each loose stool, but no more than 8 caps in 24 hours. salt and soda ORAL mouth 5mL qid sip and 300 mL 0 2019 rinse SOLNIndications: swish Mucositis due to antineoplastic therapy ondansetron (ZOFRAN ODT) 8 mg Take 1 tablet 30 tablet 1 dispersible (8 mg) by mouth tabletIndications: Nausea Every 8 hours as needed for nausea Dissolve tablet on tongue. acetaminophen (TYLENOL Take 650 mg by 0 ARTHRITIS) 650 mg CR tablet mouth 2 times a day as needed albuterol HFA Inhale 2 puffs 0 (PROVENTIL,PROAIR,VENTOLIN) orally every 6 108 (90 BASE) MCG/ACT inhaler hours as needed for shortness of breath Shake well before using. carboxymethylcellulose Place 1 drop 0 (THERATEARS) 0.25 % SOLN into both eyes ophthalmic solution 2 times a day dexamethasone (DECADRON) 4 mg Take 2 tablets 4 tablet 11 06/12/2020 tabletIndications: Duodenal by mouth 1 time cancer (HCC), Malignant per day with neoplasm of sigmoid colon food on days 2 (HCC) and 3 after chemotherapy. documented as of this encounter Progress Notes Bebe Menezes MD - 08/30/2020 2:57 PM CDT DAILY PROGRESS NOTE Loyd Watkins is a 80yr old female admitted on 08/26/2020 9:09 PM. Impression / Plan Active Problems: PANDA (acute kidney injury) (HCC) Intractable vomiting with nausea Resolved Problems: * No resolved hospital problems. 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 We have discontinue Lomotil and are using Imodium only. I encouraged premedication for nausea prior to medications and meals and this has been helping. She hasbeen maintaining her own hydration for more than 24 hours. Oncology is following along. Neither the patient nor Dr. Diego feels she is likely to tolerate any further chemotherapy. Patient and family requested consideration of hospice yesterday and palliativecare consult obtained today. #Hypertension Blood pressures low normal. Holding metoprolol for the last 48 hours, likely discontinue on discharge. #GERD Continue omeprazole 20 mg daily #Hypokalemia, resolved #Hyponatremia, resolved #Mildly abnormal urinalysis Asymptomatic, no indication of acute infection, no antibiotics indicated. #Disposition Continue inpatient cares. DNR. Palliative care consult completed today. Family is working to determine best location or timing for initiation of hospice. Tentative plan for discharge to swing bed for therapies to allow her to get strong enough to transition to an assisted living type facility. Interval History HPI Had a better night - less diarrhea, no vomiting. Tolerated breakfast - half of her scrambled eggs, half of her cream of wheat, and orange juice. Review of Systems Review of Systems Constitutional: Positive for appetite change. Negative for activity change, chills, diaphoresis and fever. Respiratory: Negative for cough, chest tightness, shortness of breath and wheezing. Cardiovascular: Negative for chest pain, palpitations and leg swelling. Gastrointestinal: Negative for abdominal pain, constipation, diarrhea, nausea and vomiting. Skin: Negative for rash. Neurological: Positive for weakness. Psychiatric/Behavioral: Negative for confusion, dysphoric mood and sleep disturbance. The patient isnot nervous/anxious. Physical Exam Vital Signs: Temp: 95.9 F (35.5 C) | BP: 111/60 | Pulse: 69 | Resp: 16 | Pain Ratin (out of 10) | Weight: 55.8 kg (123 lb) | O2 Device: Room Air | SpO2: 98 % Maximum Temperatures (last 24 hours) Temperature Maximum Max Temp 98.6 F (37 C) Intake and Output: 08/29 0700 - 08/30 0659 In: 360 [Oral:360] Out: 1 [Emesis:1] Physical Exam Vitals signs and nursing note reviewed. Constitutional: General: She is not in acute distress. Appearance: She is underweight. She is not diaphoretic. Comments: Frail appearing HENT: Head: Normocephalic and atraumatic. Right Ear: External ear normal. Left Ear: External ear normal. Mouth/Throat: Pharynx: No oropharyngeal exudate. Neck: Musculoskeletal: Neck supple. Vascular: No JVD. Trachea: No tracheal deviation. Cardiovascular: Rate and Rhythm: Normal rate and regular rhythm. Heart sounds: Normal heart sounds. No murmur. Pulmonary: Effort: Pulmonary effort is normal. No respiratory distress. Breath sounds: Normal breath sounds. No wheezing or rales. Abdominal: General: Bowel sounds are normal. There is no distension. Palpations: Abdomen is soft. Tenderness: There is no abdominal tenderness. There is no rebound. Musculoskeletal: Normal range of motion. Skin: General: Skin is warm and dry. Coloration: Skin is not pale. Findings: No erythema or rash. Neurological: Mental Status: She is alert and oriented to person, place, and time. Cranial Nerves: No cranial nerve deficit. Labs Labs (Last day) 08/29/20 1505 - 08/29/20 1505 SARS-COV-2 08/29/20 1505 SARS-COV-2 SARS-CoV-2 Not Detected Not Detected Medical Decision making Medical Decision Making Evaristo Thorpe MD - 08/29/2020 4:59 PM CDT 08/29/2020 Hematology/Oncology Daily Progress Note Loyd Watkins is a 80yr old female admitted on 08/26/2020 9:09 PM. Impression / Plan Partial dictation added by Evaristo Diego MD. Open the Dictate Later In Basket folder in [place] for [employer] to finish this dictation. Total floor time spent in care of this patient today was over 35 minutes including time spent in counseling and coordination of care including reviewing chart, discussing with nursing/showcase trimmer/other providers, reviewing labs, as above. Interval History Partial dictation added by Evaristo Diego MD. Open the Dictate Later In Basket folder in [place] for [employer] to finish this dictation. Medications Current Facility-Administered Medications Medication Dose Route Frequency Provider Last Rate Last Admin influenza immunization reminder 1 each Does not apply Immunization prior to discharge Reese Pack MD sodium chloride 0.9% prefilled 10 mL syringe (Materials Management Item) 20 mL 20 mL IV Daily Reese Pack MD 20 mL at 08/29/20 1004 And sodium chloride 0.9% prefilled 10 mL syringe (Materials Management Item) 20 mL 20 mL IV As often as necessary prn Reese Pack MD And hEParin 100 units/ mL injection for heplock FLUSH 500 Units IV Daily Reese Pack MD 500Units at 08/29/20 1003 And hEParin 100 units/ mL injection for heplock FLUSH 500 Units IV As often as necessary prn Reese Pack MD diphenoxylate-atropine (LOMOTIL) 2.5-0.025 mg tablet 1 tablet 1 tablet Oral 4 times a day Bebe Menezes MD 1 tablet at 08/29/20 1344 loperamide (IMODIUM) capsule 2 mg 2 mg Oral Every 4 hours prn Bebe Menezes MD omeprazole (priLOSEC) capsule 20 mg 20 mg Oral daily Reese Pack MD 20 mg at 08/29/20 0556 ondansetron (ZOFRAN ODT) dispersible tablet 8 mg 8 mg Oral Every 8 hours prn Reese Pack MD 8 mg at 08/28/20 1616 prochlorperazine (COMPAZINE) tablet 10 mg 10 mg Oral 4 times a day prn Reese Pack MD salt and soda ORAL mouth rinse SOLN 5 mL 5 mL Oral 4 times a day prn Reese Pack MD sodium chloride 0.9% flush (adult) 10 mL 10 mL IV 2 times a day and prn Reese Pack MD 10 mL at 08/28/20 2049 heparin (porcine) injection solution 5,000 Units 5,000 Units Subcutaneous Every 8 hours Reese Pack MD 5,000 Units at 08/29/20 1344 acetaminophen (TYLENOL) tablet 650 mg 650 mg Oral Every 4 hours prn Reese Pack MD ondansetron (ZOFRAN) injection solution 4 mg 4 mg IV 4 times a day prn Reese Pack MD 4mg at 08/29/20 1344 Physical Exam Vital Signs: Temp: 98.6 F (37 C) | BP: 107/60 | Pulse: 68 | Resp: 16 | Pain Ratin (out of 10) | Weight: 55.8 kg (123 lb) | O2 Device: Room Air | SpO2: 99 % Maximum Temperatures (last 24 hours) Temperature Maximum Max Temp 98.6 F (37 C) Vital Signs Min/Max (last 24 hours) Flowsheet Row Name Min Max Temp 97.6 F (36.4 C) 98.6 F (37 C) BP: Systolic 105 112 BP: Diastolic 58 65 Pulse 64 70 Resp 16 17 SpO2 98 % 100 % MAP (mm Hg) 76 mm Hg 76 mm Hg Wt Readings from Last 3 Encounters: 08/27/20 55.8 kg (123 lb) 08/17/20 60.2 kg (132 lb 11.2 oz) 08/10/20 59.9 kg (132 lb 1.6 oz) Intake and Output: 08/28 0700 - 08/29 0659 In: 200 [Oral:200] Out: 0 General Appearance: alert,and in no distress Eyes: sclera anicteric HENT: no oral sores or thrush noted. Neck: supple, Lungs: no rales or rhonchi, equal air entry on both sides Heart: normal rate, normal S1, S2 Abdomen: soft, nontender, nondistended, Neurological: alert, oriented, no focal deficit Mental Status: normal mood, behavior Extremities: no pedal edema, Skin: no rashes, Labs Recent Labs 08/27/20 0642 08/28/20 0700 08/29/20 0638 WBC 5.3 6.2 5.5 HEMOGLOBIN 12.1 11.5 10.8* HEMATOCRIT 35.5 34.4* 32.2* PLTCOUNT 185 186 179 NEUTROABS 2.5 4.0 2.8 Recent Labs 08/26/20 2143 08/27/20 0642 08/28/20 0700 08/29/20 0638 BUN 45* 45* 35* 29* CREATSERUM 2.06* 1.80* 1.46* 1.16* NA 131* 134* 137 137 POTASSIUM 3.2* 3.2* 3.6 3.5 CL 103 106 113* 111* CO2 13* 15* 13* 16* CA 8.9 8.6 8.4* 8.3* PROTEINTOTAL 7.6 -- -- -- ALBUMIN 4.2 -- -- -- ALKPHOS 134 -- -- -- AST 25 -- -- -- ALT 39 -- -- -- BILITOTAL 0.6 -- -- -- MAGNESIUM 1.7* -- -- -- Evaristo Diego MD [place] Bebe Bonilla MD - 08/29/2020 3:07 PM CDT DAILY PROGRESS NOTE Loyd Watkins is a 80yr old female admitted on 08/26/2020 9:09 PM. Impression / Plan Active Problems: PANDA (acute kidney injury) (HCC) Intractable vomiting with nausea Resolved Problems: * No resolved hospital problems. 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 I have stopped IV fluids as of yesterday afternoon. Continue antiemetics. Continue scheduled Lomotil and as needed Imodium for diarrhea. C. difficile was negative. All likely secondary to Xeloda. Continue to advance diet as tolerated. Medical oncology following along. She is feeling quite a bit stronger today. #Hypertension Blood pressures borderline. Will hold metoprolol and see if it is still required. #GERD Continue omeprazole 20 mg daily. #Hypokalemia, resolved #Hyponatremia Normalized with hydration. Suspect hypovolemic hyponatremia. #Mildly abnormal urinalysis Asymptomatic, no indication of acute infection, no antibiotics indicated. #Disposition Continue inpatient cares. DNR. Discussed with patient, family, and Dr. Diego. Family is concernedthat she is not yet strong enough to return home. PT and OT evaluations have been completed and recommend low intensity care at a SNF or TCU. Case management to profile for discharge, hopefully tomorrow. Heparin subcu for DVT prophylaxis. Addendum: Returned to discuss whether she was ready for d/c tomorrow as family concerned about ongoing poor appetite, nausea, vomiting, and diarrhea. Made multiple medication adjustments for symptom management. She told me she thought she was ready for hospice. Family was tearful but appropriate and supportive. Palliative care consult placed. Will discuss hospice and locations that can be accomplished tomorrow. Interval History HPI Intermittently still nauseated, 2 loose stools overnight. Overall feels better though. Able to ambulate with PT this morning. Review of Systems Review of Systems Constitutional: Negative for activity change, appetite change, chills, diaphoresis and fever. Respiratory: Negative for cough, chest tightness, shortness of breath and wheezing. Cardiovascular: Negative for chest pain, palpitations and leg swelling. Gastrointestinal: Positive for diarrhea and nausea. Negative for abdominal pain, constipation and vomiting. Skin: Negative for rash. Psychiatric/Behavioral: Negative for confusion, dysphoric mood and sleep disturbance. The patient isnot nervous/anxious. Physical Exam Vital Signs: Temp: 98.6 F (37 C) | BP: 107/60 | Pulse: 68 | Resp: 16 | Pain Ratin (out of 10) | Weight: 55.8 kg (123 lb) | O2 Device: Room Air | SpO2: 99 % Maximum Temperatures (last 24 hours) Temperature Maximum Max Temp 98.7 F (37.1 C) Intake and Output: 08/28 0700 - 08/29 0659 In: 200 [Oral:200] Out: 0 Physical Exam Vitals signs and nursing note reviewed. Constitutional: General: She is not in acute distress. Appearance: She is well-developed. She is ill-appearing (frail appearing). She is not diaphoretic. HENT: Head: Normocephalic and atraumatic. Right Ear: External ear normal. Left Ear: External ear normal. Mouth/Throat: Pharynx: No oropharyngeal exudate. Neck: Musculoskeletal: Neck supple. Vascular: No JVD. Trachea: No tracheal deviation. Cardiovascular: Rate and Rhythm: Normal rate and regular rhythm. Heart sounds: Normal heart sounds. No murmur. Pulmonary: Effort: Pulmonary effort is normal. No respiratory distress. Breath sounds: Normal breath sounds. No wheezing or rales. Abdominal: General: Bowel sounds are normal. There is no distension. Palpations: Abdomen is soft. Tenderness: There is no abdominal tenderness. There is no rebound. Musculoskeletal: Normal range of motion. Skin: General: Skin is warm and dry. Coloration: Skin is not pale. Findings: No erythema or rash. Neurological: Mental Status: She is alert and oriented to person, place, and time. Cranial Nerves: No cranial nerve deficit. Labs Labs (Last day) 08/29/20 0638 - 08/29/20 0638 CBC 08/29/20 0638 CBC WBC 4.0-11.0 (K/uL) 5.5 RBC 3.80-5.30 (M/uL) 3.44 Hemoglobin 11.5-15.8 (g/dL) 10.8 Hematocrit 35.0-45.0 (%) 32.2 MCV 80.0-98.0 (fL) 93.6 MCH 25.5-34.0 (pg) 31.4 MCHC 31.5-36.5 (g/dL) 33.5 RDW-CV 11.5-15.5 (%) 19.3 RDW-SD 35.5-50.0 (fl) 65.0 Platelet Count 140-400 (K/uL) 179 MPV 8.5-12.0 (fL) 9.9 08/29/20637 - 08/29/20637 CHEMISTRY 08/29/20637 CHEMISTRY Glucose 70-100 (mg/dL) 83 Sodium 135-145 (meq/L) 137 Potassium 3.5-5.3 (meq/L) 3.5 Chloride 99-110 (meq/L) 111 CO2 20-29 (meq/L) 16 Anion Gap with K 6-20 (meq/L) 14 BUN 6-22 (mg/dL) 29 Creatinine 0.60-1.10 (mg/dL) 1.16 BUN/Creatinine Ratio 10.0-25.0 25.0 Calcium 8.5-10.5 (mg/dL) 8.3 eGFR >=60 (mL/min/1.73m2) 54 eGFR Non- >=60 (mL/min/1.73m2) 45 08/29/20637 - 08/29/20637 DIFFERENTIAL 08/29/20637 DIFFERENTIAL Seg Neut Absolute 1.8-8.0 (K/uL) 2.8 Lymphocytes Absolute 0.8-4.1 (K/uL) 1.7 Monocytes Absolute 0.0-1.0 (K/uL) 0.8 Eosinophils Absolute 0.0-0.7 (K/uL) 0.1 Basophil Absolute 0.0-0.2 (K/uL) 0.0 Immature Granulocyte Absolute 0.00-0.06 (K/uL) 0.01 Neutrophils Percent (%) 51.5 Neutrophils Abs. (Segs and Bands) (/uL) 2,800 Lymphocytes Percent (%) 30.3 Monocytes Percent (%) 15.2 Immature Granulocyte Percent (%) 0.2 Eosinophils Percent (%) 2.4 Basophil Percent (%) 0.4 Nucleated RBC (/100 WBC's) 0 08/29/20 0638 - 08/29/20 0638 OTHER 08/29/20 0638 OTHER Age (Years) 80 Medical Decision making Medical Decision Making Evaristo Thorpe MD - 08/28/2020 4:28 PM CDT 08/28/2020 Hematology/Oncology Daily Progress Note Loyd Watkins is a 80yr old female admitted on 08/26/2020 9:09 PM. Impression / Plan 1. Diarrhea related to recent chemotherapy. 2. Nausea vomiting related to recent chemotherapy. 3. Acute kidney injury due to dehydration improving. 4. 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 On hold due to recent hospital illness and admission. Continue supportive care. Daughter very concerned about her going home. We had a long discussion along with the hospitalist present in the room about discharge planning. Since patient is deconditioned and not physically able to take care of herself and family not available all the time she may require transitional care or halfway for a while. We will hold chemotherapy until then. Discussed goals of care with them. Discussed about discharge plan. We will reevaluate her tomorrow for possible discharge or for another day or 2 until her physical condition improves. Continue PT/OT. Total floor time spent in care of this patient today was over 35 minutes including time spent in counseling and coordination of care including reviewing chart, discussing with /other providers, reviewing labs,as above. Interval History 80-year-old woman admitted to the hospital for nausea vomiting diarrhea dehydration acute kidney injury related to her recent chemotherapy. C. difficile for stool was negative. Patient being treated with intravenous fluid and other supportive care. She still had diarrhea about 34 loose stool. She is significantly weak. She is not ambulating much. Physical therapy was involved today. Oral intake still somewhat poor but improving. She is on IV fluids. No pain. No cough. No shortness of breath. No abdominal discomfort. She has some nausea but no vomiting. Medications Current Facility-Administered Medications Medication Dose Route Frequency Provider Last Rate Last Admin metoprolol succinate (TOPROL XL) SR half-tablet (24 hr) 12.5 mg 12.5 mg Oral daily Reese Pack MD 12.5 mg at 08/28/20 0857 influenza immunization reminder 1 each Does not apply Immunization prior to discharge Reese Pack MD sodium chloride 0.9% prefilled 10 mL syringe (Materials Management Item) 20 mL 20 mL IV Daily Reese Pack MD And sodium chloride 0.9% prefilled 10 mL syringe (Materials Management Item) 20 mL 20 mL IV As often as necessary prn Reese Pack MD And hEParin 100 units/ mL injection for heplock FLUSH 500 Units IV Daily Reese Pack MD And hEParin 100 units/ mL injection for heplock FLUSH 500 Units IV As often as necessary prn Reese Pack MD diphenoxylate-atropine (LOMOTIL) 2.5-0.025 mg tablet 1 tablet 1 tablet Oral 4 times a day Bebe Menezes MD 1 tablet at 08/28/20 1617 loperamide (IMODIUM) capsule 2 mg 2 mg Oral Every 4 hours prn Bebe Menezes MD omeprazole (priLOSEC) capsule 20 mg 20 mg Oral daily Reese Pack MD 20 mg at 08/28/20 0626 ondansetron (ZOFRAN ODT) dispersible tablet 8 mg 8 mg Oral Every 8 hours prn Reese Pack MD 8 mg at 08/28/20 1616 prochlorperazine (COMPAZINE) tablet 10 mg 10 mg Oral 4 times a day prn Reese Pack MD salt and soda ORAL mouth rinse SOLN 5 mL 5 mL Oral 4 times a day prn Reese Pack MD sodium chloride 0.9% flush (adult) 10 mL 10 mL IV 2 times a day and prn Reese Pack MD heparin (porcine) injection solution 5,000 Units 5,000 Units Subcutaneous Every 8 hours Reese Pack MD 5,000 Units at 08/28/20 1310 sodium chloride 0.9% IV solution IV Continuous Reese Pack MD 100 mL/hr at 08/28/20 1614New Bag at 08/28/20 1614 acetaminophen (TYLENOL) tablet 650 mg 650 mg Oral Every 4 hours prn Reese Pack MD ondansetron (ZOFRAN) injection solution 4 mg 4 mg IV 4 times a day prn Reese Pack MD 4mg at 08/28/20 1627 Physical Exam Vital Signs: Temp: 98.7 F (37.1 C) | BP: 92/55 | Pulse: 75 | Resp: 16 | Pain Ratin (out of 10) | Weight: 55.8 kg (123 lb) | O2 Device: Room Air | SpO2: 100 % Maximum Temperatures (last 24 hours) Temperature Maximum Max Temp 98.7 F (37.1 C) Vital Signs Min/Max (last 24 hours) Flowsheet Row Name Min Max Temp 96.1 F (35.6 C) 98.7 F (37.1 C) BP: Systolic 92 118 BP: Diastolic 55 59 Pulse 57 75 Resp 16 17 SpO2 99 % 100 % MAP (mm Hg) 70 mm Hg 70 mm Hg Wt Readings from Last 3 Encounters: 08/27/20 55.8 kg (123 lb) 08/17/20 60.2 kg (132 lb 11.2 oz) 08/10/20 59.9 kg (132 lb 1.6 oz) Intake and Output: 08/27 0700 - 08/28 0659 In: 3270 [Oral:760] Out: 1451 [Urine:1201; Emesis:250] General Appearance: alert,and in no distress Eyes: sclera anicteric HENT: no oral sores or thrush noted. Neck: supple, Lungs: no rales or rhonchi, equal air entry on both sides Heart: normal rate, normal S1, S2 Abdomen: soft, nontender, nondistended, Neurological: alert, oriented, no focal deficit Mental Status: normal mood, behavior Extremities: no pedal edema, Skin: no rashes, Labs Recent Labs 08/26/20214208/27/20 0642 08/28/20 0700 WBC 5.9 5.3 6.2 HEMOGLOBIN 12.9 12.1 11.5 HEMATOCRIT 37.9 35.5 34.4* PLTCOUNT 180 185 186 NEUTROABS 3.7 2.5 4.0 Recent Labs 08/26/20214208/27/20 0642 08/28/20 0700 BUN 45* 45* 35* CREATSERUM 2.06* 1.80* 1.46* NA 131* 134* 137 POTASSIUM 3.2* 3.2* 3.6 CL 103 106 113* CO2 13* 15* 13* CA 8.9 8.6 8.4* PROTEINTOTAL 7.6 -- -- ALBUMIN 4.2 -- -- ALKPHOS 134 -- -- AST 25 -- -- ALT 39 -- -- BILITOTAL 0.6 -- -- MAGNESIUM 1.7* -- -- Evaristo Diego MD [place] Bebe Bonilla MD - 08/28/2020 2:42 PM CDT DAILY PROGRESS NOTE Loyd Watkins is a 80yr old female admitted on 08/26/2020 9:09 PM. Impression / Plan Active Problems: PANDA (acute kidney injury) (HCC) Intractable vomiting with nausea Resolved Problems: * No resolved hospital problems. 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 Continue IV fluids. Continue antiemetics. Continue scheduled Lomotil and as needed Imodium for diarrhea. C. difficile was negative. All likely secondary to Xeloda. Continue to advance diet as tolerated. Medical oncology following along. Patient was sitting up at her breakfast tray and felt that her appetite had improved today. #Hypertension Continue home metoprolol 12.5 mg daily with hold parameters. #GERD Continue omeprazole 20 mg daily. #Hypokalemia This was replaced IV yesterday. It has normalized today. We will recheck again tomorrow. #Hyponatremia Normalized with hydration. Suspect hypovolemic hyponatremia. #Mildly abnormal urinalysis Asymptomatic, no indication of acute infection, no antibiotics indicated. #Disposition Continue inpatient cares. DNR. Discussed with patient, family, and Dr. Diego. Family is concernedthat she is not yet strong enough to return home. PT and OT evaluations have been completed and recommend low intensity care at a SNF or TCU. Case management to profile for discharge in the next 1 to2 days if continues to improve. Heparin subcu for DVT prophylaxis. Interval History HPI Feeling slightly better today. Appetite improved. Intermittent nausea. No vomiting since yesterday afternoon. No fevers. Still feels very weak compared to baseline. Review of Systems Review of Systems Physical Exam Vital Signs: Temp: 97.6 F (36.4 C) | BP: 103/57 | Pulse: 73 | Resp: 16 | Pain Ratin (out of 10) | Weight: 55.8 kg (123 lb) | O2 Device: Room Air | SpO2: 99 % Maximum Temperatures (last 24 hours) Temperature Maximum Max Temp 97.6 F (36.4 C) Intake and Output: 08/27 0700 - 08/28 0659 In: 3270 [Oral:760] Out: 1451 [Urine:1201; Emesis:250] Physical Exam Vitals signs and nursing note reviewed. Constitutional: General: She is not in acute distress. Appearance: She is well-developed. She is ill-appearing (frail appearing). She is not diaphoretic. HENT: Head: Normocephalic and atraumatic. Right Ear: External ear normal. Left Ear: External ear normal. Mouth/Throat: Pharynx: No oropharyngeal exudate. Neck: Musculoskeletal: Neck supple. Vascular: No JVD. Trachea: No tracheal deviation. Cardiovascular: Rate and Rhythm: Normal rate and regular rhythm. Heart sounds: Normal heart sounds. No murmur. Pulmonary: Effort: Pulmonary effort is normal. No respiratory distress. Breath sounds: Normal breath sounds. No wheezing or rales. Abdominal: General: Bowel sounds are normal. There is no distension. Palpations: Abdomen is soft. Tenderness: There is no abdominal tenderness. There is no rebound. Musculoskeletal: Normal range of motion. Skin: General: Skin is warm and dry. Coloration: Skin is not pale. Findings: No erythema or rash. Neurological: Mental Status: She is alert and oriented to person, place, and time. Cranial Nerves: No cranial nerve deficit. Labs Labs (Last day) 08/28/20 0700 - 08/28/20 0700 CBC 08/28/20 0700 CBC WBC 4.0-11.0 (K/uL) 6.2 RBC 3.80-5.30 (M/uL) 3.63 Hemoglobin 11.5-15.8 (g/dL) 11.5 Hematocrit 35.0-45.0 (%) 34.4 MCV 80.0-98.0 (fL) 94.8 MCH 25.5-34.0 (pg) 31.7 MCHC 31.5-36.5 (g/dL) 33.4 RDW-CV 11.5-15.5 (%) 19.0 RDW-SD 35.5-50.0 (fl) 64.5 Platelet Count 140-400 (K/uL) 186 MPV 8.5-12.0 (fL) 9.6 08/28/20 0700 - 08/28/20 07 CHEMISTRY 08/28/20 07 CHEMISTRY Glucose 70-100 (mg/dL) 91 Sodium 135-145 (meq/L) 137 Potassium 3.5-5.3 (meq/L) 3.6 Chloride 99-110 (meq/L) 113 CO2 20-29 (meq/L) 13 Anion Gap with K 6-20 (meq/L) 15 BUN 6-22 (mg/dL) 35 Creatinine 0.60-1.10 (mg/dL) 1.46 BUN/Creatinine Ratio 10.0-25.0 24.0 Calcium 8.5-10.5 (mg/dL) 8.4 eGFR >=60 (mL/min/1.73m2) 42 eGFR Non- >=60 (mL/min/1.73m2) 34 08/28/20 0700 - 08/28/20 0700 DIFFERENTIAL 08/28/20 07 DIFFERENTIAL Seg Neut Absolute 1.8-8.0 (K/uL) 4.0 Lymphocytes Absolute 0.8-4.1 (K/uL) 1.5 Monocytes Absolute 0.0-1.0 (K/uL) 0.7 Eosinophils Absolute 0.0-0.7 (K/uL) 0.1 Basophil Absolute 0.0-0.2 (K/uL) 0.0 Immature Granulocyte Absolute 0.00-0.06 (K/uL) 0.01 Neutrophils Percent (%) 63.9 Neutrophils Abs. (Segs and Bands) (/uL) 4,000 Lymphocytes Percent (%) 23.7 Monocytes Percent (%) 10.6 Immature Granulocyte Percent (%) 0.2 Eosinophils Percent (%) 1.3 Basophil Percent (%) 0.3 Nucleated RBC (/100 WBC's) 0 08/28/20 0700 - 08/28/20 0700 OTHER 08/28/20 0700 OTHER Age (Years) 80 Medical Decision making Medical Decision Making ebe Dozier MD - 08/27/2020 4:56 PM CDT DAILY PROGRESS NOTE Loyd Watkins is a 80yr old female admitted on 08/26/2020 9:09 PM. Impression / Plan Active Problems: PANDA (acute kidney injury) (HCC) Intractable vomiting with nausea Resolved Problems: * No resolved hospital problems. 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 Continue IV fluids. Continue antiemetics. Will add scheduled Lomotil as maximally dosed Imodium was not helping at home. C. difficile was negative. All likely secondary to Xeloda. Continue oral intake as tolerated. Medical oncology following along. #Hypertension Continue home metoprolol 12.5 mg daily with hold parameters. #GERD Continue omeprazole 20 mg daily. #Hypokalemia IV potassium ordered given difficulty tolerating oral intake at this time. #Hyponatremia Improving slightly with hydration. Continue to monitor. #Mildly abnormal urinalysis Asymptomatic. No indication of acute infection. #Disposition Continue inpatient cares. DNR. Discussed plan with patient family as well as patient. PT OT consulted. Subcu heparin for DVT prophylaxis. Interval History HPI Admitted yesterday with nausea, vomiting, and diarrhea. Poor po intake, weakness. Can usually control diarrhea with Imodium, but it wasn't working anymore. C diff has been checked since admission and is negative. Review of Systems Review of Systems Constitutional: Positive for appetite change. Negative for activity change, chills, diaphoresis and fever. Respiratory: Negative for cough, chest tightness, shortness of breath and wheezing. Cardiovascular: Negative for chest pain, palpitations and leg swelling. Gastrointestinal: Positive for diarrhea. Negative for abdominal pain, constipation, nausea and vomiting. Skin: Negative for rash. Neurological: Positive for weakness. Psychiatric/Behavioral: Negative for confusion, dysphoric mood and sleep disturbance. The patient isnot nervous/anxious. Physical Exam Vital Signs: Temp: 97.9 F (36.6 C) | BP: 109/61 | Pulse: 61 | Resp: 16 | Pain Ratin (out of 10) | Weight: 55.8 kg (123 lb) | O2 Device: Room Air | SpO2: 98 % Maximum Temperatures (last 24 hours) Temperature Maximum Max Temp 97.9 F (36.6 C) Intake and Output: 08/26 0700 - 08/27 0659 In: - Out: 200 [Urine:200] Physical Exam Vitals signs and nursing note reviewed. Constitutional: General: She is not in acute distress. Appearance: She is well-developed. She is not diaphoretic. HENT: Head: Normocephalic and atraumatic. Right Ear: External ear normal. Left Ear: External ear normal. Ears: Comments: Hard of hearing Mouth/Throat: Pharynx: No oropharyngeal exudate. Neck: Musculoskeletal: Neck supple. Vascular: No JVD. Trachea: No tracheal deviation. Cardiovascular: Rate and Rhythm: Normal rate and regular rhythm. Heart sounds: Normal heart sounds. No murmur. Pulmonary: Effort: Pulmonary effort is normal. No respiratory distress. Breath sounds: Normal breath sounds. No wheezing or rales. Abdominal: General: Bowel sounds are normal. There is no distension. Palpations: Abdomen is soft. Tenderness: There is no abdominal tenderness. There is no rebound. Musculoskeletal: Normal range of motion. Skin: General: Skin is warm and dry. Coloration: Skin is not pale. Findings: No erythema or rash. Neurological: Mental Status: She is alert and oriented to person, place, and time. Cranial Nerves: No cranial nerve deficit. Psychiatric: Mood and Affect: Mood normal. Labs Labs (Last day) 08/27/20 0642 - 08/26/20 214 CBC 08/27/20 0642 08/26/20 2143 CBC WBC 4.0-11.0 (K/uL) 5.3 5.9 RBC 3.80-5.30 (M/uL) 3.79 4.09 Hemoglobin 11.5-15.8 (g/dL) 12.1 12.9 Hematocrit 35.0-45.0 (%) 35.5 37.9 MCV 80.0-98.0 (fL) 93.7 92.7 MCH 25.5-34.0 (pg) 31.9 31.5 MCHC 31.5-36.5 (g/dL) 34.1 34.0 RDW-CV 11.5-15.5 (%) 18.7 18.2 RDW-SD 35.5-50.0 (fl) 62.7 60.8 Platelet Count 140-400 (K/uL) 185 180 MPV 8.5-12.0 (fL) 10.0 10.0 08/27/20641 - 08/26/202142 CHEMISTRY 08/27/2064108/26/20214208/26/202142 CHEMISTRY Glucose 70-100 (mg/dL) 93 120 Sodium 135-145 (meq/L) 134 131 Potassium 3.5-5.3 (meq/L) 3.2 3.2 Chloride 99-110 (meq/L) 106 103 CO2 20-29 (meq/L) 15 13 Anion Gap with K 6-20 (meq/L) 16 18 BUN 6-22 (mg/dL) 45 45 Creatinine 0.60-1.10 (mg/dL) 1.80 2.06 BUN/Creatinine Ratio 10.0-25.0 25.0 21.8 Calcium 8.5-10.5 (mg/dL) 8.6 8.9 Magnesium 1.8-2.4 (mg/dL) 1.7 Bilirubin Total 0.2-1.2 (mg/dL) 0.6 Alkaline Phosphatase 30-150 (U/L) 134 ALT - SGPT 0-55 (U/L) 39 AST - SGOT 0-35 (U/L) 25 Protein Total 6.0-8.2 (g/dL) 7.6 Albumin 3.5-5.0 (g/dL) 4.2 eGFR >=60 (mL/min/1.73m2) 33 28 eGFR Non- >=60 (mL/min/1.73m2) 27 23 08/27/20641 - 08/26/202142 DIFFERENTIAL 03/15/21 0642 03/14/21 2143 DIFFERENTIAL Seg Neut Absolute 1.8-8.0 (K/uL) 2.5 3.7 Lymphocytes Absolute 0.8-4.1 (K/uL) 1.5 1.2 Monocytes Absolute 0.0-1.0 (K/uL) 1.3 1.0 Eosinophils Absolute 0.0-0.7 (K/uL) 0.1 0.1 Basophil Absolute 0.0-0.2 (K/uL) 0.0 0.0 Immature Granulocyte Absolute 0.00-0.06 (K/uL) 0.01 0.01 Neutrophils Percent (%) 46.5 61.7 Neutrophils Abs. (Segs and Bands) (/uL) 2,500 3,700 Lymphocytes Percent (%) 27.2 19.4 Monocytes Percent (%) 24.4 17.4 Immature Granulocyte Percent (%) 0.2 0.2 Eosinophils Percent (%) 1.5 0.8 Basophil Percent (%) 0.2 0.5 Nucleated RBC (/100 WBC's) 0 0 08/27/20412 - 08/27/20412 [facility] 08/27/20412 [facility] [place] 027/NAP1/BI Presumptive Negative Presumptive Negative C difficile Toxin B Gene NAD Not Detected Not Detected 08/27/20412 - 08/27/20412 URINALYSIS 08/27/2041208/27/20412 URINALYSIS Color Urine Shirley, Dark Yellow, Straw, Yellow, Colorless Yellow Clarity Urine Clear Slightly Cloudy Specific [place]inger 1.002-1.030 1.012 Glucose Urine Negative Negative Bilirubin Urine Negative Negative Ketones Urine Negative, 5 mg/dL, 10 mg/dL Negative Blood Urine Negative Negative PH Urine 5.0, 5.5, 6.0, 6.5, 7.0, 7.5, 8.0 5.0 Protein Urine Negative Negative Nitrite Negative Negative Leukocyte Esterase Urine Negative Small (1+) Urobilinogen < 2 mg/dL < 2 mg/dL WBC Urine Negative, 0-5 /hpf 11-20 /hpf RBC Urine Negative, 0-2 /hpf 6-10 /hpf Squamous Epithelial Cells Negative, Occ (0-10) /lpf, Few (11-20) /lpf Few (11- 20) /lpf Bacteria Negative Occ (0-10) /hpf Hyaline Cast 0-2 /lpf 0-2 /lpf Granular Cast Negative 0-2 /lpf 08/27/20 0642 - 08/26/203 OTHER 08/27/20 0642 08/26/20 214 OTHER Age (Years) [age] Medical Decision making Medical Decision Making documented in this encounter H&P Notes Reese Pack MD - 08/26/2020 11:43 PM CDT ADMISSION HISTORY AND PHYSICAL NOTE Patient ID: Loyd Watkins is a 80yr female. PCP: Leander Lima MD Attending Provider: Desiree Scott MD NEY: [phone] Impression / Plan Active Problems: * No active hospital problems. * Plan: Intractable nausea and vomiting Diarrhea PANDA on CKD stage 3 likely pre-renal Hypokalemia Hyponatremia Hypomagnesemia Sigmoid cancer on capecitabine Hypomagnesemia Symptoms likely related to chemotherapy. Patient appears dehydrated and weak on exam -Continue IV fluids at 100 cc/h, monitor labs in a.m. -Continue home metoprolol XL 12.5 mg with parameters -control emesis with home omeprazole 20 mg daily, as needed Zofran and Compazine -Send stool for C. difficile -Continue home Imodium -Clear liquids for now, advance as tolerated -Oncology consult placed - hold home capecitabine CODE STATUS- DNR DVT prophylaxis-Heparin subcu Disposition-inpatient Chief Complaint / HPI HPI Patient is an 80-year-old female with past medical history of sigmoid cancer on chemotherapy, hypertension, hyperlipidemia who presented to the ED on account of intractable nausea and vomiting in the last few days. Patient reports that her symptoms are also associated with nonbloody diarrhea about 5 times each day, anorexia and weight loss. She does not have a fever, cough or shortness of breath. Patient reports she had been admitted in the past for 20 days for intolerance of IV chemotherapy. In the ED patient was hemodynamically stable. Patient was given 2L on NS in the ED WBC 5.9, Hb 2.9, plt 180, Na 131, K 3.2, creat 2.06, mag 1.7, CT abd - Large mass involving the sigmoid colon and third portion of the duodenum and abutting the cecum appears slightly smaller. No new findings of obstruction. Medications Prior to Admission Medications Prescriptions Last Dose Informant Patient Reported? Taking? acetaminophen (TYLENOL ARTHRITIS) 650 mg CR tablet Yes No Sig: Take 650 mg by mouth 2 times a day as needed albuterol HFA (PROVENTIL,PROAIR,VENTOLIN) 108 (90 BASE) MCG/ACT inhaler Yes No Sig: Inhale 2 puffs orally every 6 hours as needed for shortness of breath Shake well before using. capecitabine (XELODA) 500 MG tablet No No Sig: Take 3 tablets (1,500 mg) by mouth 2 times a day for 28 doses on days 1-14 of each 21 day cycle. carboxymethylcellulose (THERATEARS) 0.25 % SOLN ophthalmic solution Yes No Sig: Place 1 drop into both eyes 2 times a day loperamide (IMODIUM) 2 mg capsule No No Sig: Take 2 caps after the first loose stool, then 1 cap after each loose stool, but no more than 8 caps in 24 hours. metoprolol succinate (TOPROL XL) 25 mg SR tablet (24 hr) Yes No Sig: Take 1 tablet by mouth 1 time per day Do not crush or chew - generic Toprol-XL omeprazole (PRILOSEC) 20 mg capsule Yes No ondansetron (ZOFRAN ODT) 8 mg dispersible tablet No No Sig: Take 1 tablet (8 mg) by mouth Every 8 hours as needed for nausea Dissolve tablet on tongue. prochlorperazine (COMPAZINE) 10 mg tablet No No Sig: Take 1 tablet (10 mg) by mouth 4 times a day as needed for nausea or vomiting salt and soda ORAL mouth rinse SOLN No No SimL qid sip and swish Facility-Administered Medications: None Allergies Allergies Allergen Reactions Atorvastatin Other (Specify in Comments) Seasonal Unknown/Not Verified Simvastatin Other (Specify in Comments) Ibuprofen Nausea and Vomiting Medical / Surgical / Family History Past Medical History: Diagnosis Date Asthma C. difficile diarrhea Cancer (HCC) duodenal cancer Hearing loss Hyperlipidemia Hypertension Osteoarthritis Osteopenia Reactive airway disease Past Surgical History: Procedure Laterality Date BIOPSY Done by Sukhjinder [facility] at [facility] Interventional Radiology -lx biospy BUNIONECTOMY has had surgery three times for her bunions. COLONOSCOPY 11/24/2014 08-16-08 (after last colonoscopy due in 10 yrs) COLONOSCOPY W FECAL TRANSPLANT 05/12/2016 Procedure: COLONOSCOPY WITH FECAL TRANSPLANT;; Surgeon: Edwar Bowling MD D & C Dilation and curettage of uterus - done 1962 and 1967. JOINT REPLACEMENT Right 2007 Hip JOINT REPLACEMENT Left 2013 Hip 61375 REPAIR ACHILLES TENDON TONSILLECTOMY Tonsillectomy and Adenoidectomy - age not documented UPPER ENDOSCOPY N/A 06/19/2020 Procedure: UPPER ENDOSCOPY, needs duodenal biopsy;; Surgeon: Dante Redd MD History reviewed. No pertinent family history. Social History Social History Tobacco Use Smoking status: Never Smoker Smokeless tobacco: Never Used Substance Use Topics Alcohol use: Not Currently Frequency: Never Drug use: Never ROS Review of Systems Constitutional: Negative for fatigue and fever. HENT: Negative. Eyes: Negative for discharge and redness. Respiratory: Negative for cough, chest tightness, shortness of breath, wheezing and stridor. Cardiovascular: Negative for chest pain, palpitations and leg swelling. Gastrointestinal: Negative for abdominal distention, abdominal pain and diarrhea. Endocrine: Negative. Genitourinary: Negative. Musculoskeletal: Negative for back pain, joint swelling or gait problem Skin: Negative for pallor or rashes Neurological: Negative for dizziness and headaches. Physical Exam BP 123/70 | Pulse 67 | Temp 97.7 F (36.5 C) | Ht 1.575 m (5' 2") | Wt 59.9 kg (132 lb) | SpO2 98% | BMI 24.14 kg/m Physical Exam Constitutional: Elderly female. Patient is oriented to person, place, and time. No obvious distresson room air. Appears weak and dehydrated Head: Normocephalic and atraumatic. Eyes: Pupils are equal, round, and reactive to light. Conjunctivae and EOM are normal. Neck: Normal range of motion. Neck supple. Cardiovascular: Regular rhythm, rate, normal heart sounds. Grade 4/6 aorti HAMIDA with radiation to theprecordium Pulmonary/Chest: Effort normal and breath sounds normal. Abdominal: Soft. Non-tender, non-distended abdomen. Bowel sounds are hyperactive. Musculoskeletal: Normal range of motion, no edema or tenderness Neurological: Patient is alert and oriented to person, place, and time. Skin: Skin is warm and dry. Psychiatric: Patient has a normal mood and affect. Labs Labs (Last day) 08/26/202142 - 08/26/202142 CBC 08/26/202142 CBC WBC 4.0-11.0 (K/uL) 5.9 RBC 3.80-5.30 (M/uL) 4.09 Hemoglobin 11.5-15.8 (g/dL) 12.9 Hematocrit 35.0-45.0 (%) 37.9 MCV 80.0-98.0 (fL) 92.7 MCH 25.5-34.0 (pg) 31.5 MCHC 31.5-36.5 (g/dL) 34.0 RDW-CV 11.5-15.5 (%) 18.2 RDW-SD 35.5-50.0 (fl) 60.8 Platelet Count 140-400 (K/uL) 180 MPV 8.5-12.0 (fL) 10.0 08/26/202142 - 08/26/202142 CHEMISTRY 08/26/20214208/26/202142 CHEMISTRY Glucose 70-100 (mg/dL) 120 Sodium 135-145 (meq/L) 131 Potassium 3.5-5.3 (meq/L) 3.2 Chloride 99-110 (meq/L) 103 CO2 20-29 (meq/L) 13 Anion Gap with K 6-20 (meq/L) 18 BUN 6-22 (mg/dL) 45 Creatinine 0.60-1.10 (mg/dL) 2.06 BUN/Creatinine Ratio 10.0-25.0 21.8 Calcium 8.5-10.5 (mg/dL) 8.9 Magnesium 1.8-2.4 (mg/dL) 1.7 Bilirubin Total 0.2-1.2 (mg/dL) 0.6 Alkaline Phosphatase 30-150 (U/L) 134 ALT - SGPT 0-55 (U/L) 39 AST - SGOT 0-35 (U/L) 25 Protein Total 6.0-8.2 (g/dL) 7.6 Albumin 3.5-5.0 (g/dL) 4.2 eGFR >=60 (mL/min/1.73m2) 28 eGFR Non- >=60 (mL/min/1.73m2) 23 08/26/202142 - 08/26/20 214 DIFFERENTIAL 08/26/202142 DIFFERENTIAL Seg Neut Absolute 1.8-8.0 (K/uL) 3.7 Lymphocytes Absolute 0.8-4.1 (K/uL) 1.2 Monocytes Absolute 0.0-1.0 (K/uL) 1.0 Eosinophils Absolute 0.0-0.7 (K/uL) 0.1 Basophil Absolute 0.0-0.2 (K/uL) 0.0 Immature Granulocyte Absolute 0.00-0.06 (K/uL) 0.01 Neutrophils Percent (%) 61.7 Neutrophils Abs. (Segs and Bands) (/uL) 3,700 Lymphocytes Percent (%) 19.4 Monocytes Percent (%) 17.4 Immature Granulocyte Percent (%) 0.2 Eosinophils Percent (%) 0.8 Basophil Percent (%) 0.5 Nucleated RBC (/100 WBC's) 0 08/26/202142 - 08/26/202142 OTHER 08/26/202142 OTHER Age (Years) 80 Procedures Procedures Medical Decision Making Medical Decision Making documented in this encounter Consult Notes Antonia Scanlon CNP - 08/30/2020 10:30 AM CDT PALLIATIVE CARE CONSULT Loyd Watkins is a 80yr old female admitted on 08/26/2020. Consult completed 08/30/2020. Referring Provider: Dr. Menezes Information is obtained from the medical record, patient, family and showcase trimmer. Reason for Visit: Assistance with complex medical decision making involving goals of care in addition to pain and symptom management. Facilitate improved patient and family understanding of their complex medical issues. Purpose and benefit of palliative care outlined. 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 Palliative care encounter Z51.5 DOES THE PATIENT HAVE AN ACTIVE CANCER DIAGNOSIS?: Yes PALLIATIVE CARE SERVICES UTILIZED THIS VISIT INCLUDE?: Team-based care planning that involves the patient and family, Pain and non-pain symptom management, Communication among patients, families, and provider team members, Education about illness and prognosis, Assistance with medical decision making,Continuity of care across a range of clinical settings and services, Psychosocial support for patients and families and Hospice/end of life care coordination Inpatient Problem List: Active Problems Diagnosis Date Noted PANDA (acute kidney injury) (HCC) 08/26/2020 Intractable vomiting with nausea 08/26/2020 Recommendations: 1. Goal of care: Family discussing amongst each other; TCU with therapy vs hospice. 2. Code Status: DNR 3. Decision maker: Self 4. Pain: Denies. Used 0 MME (mg oral morphine equivalents) in the past 24 hours (7 AM-7 AM). 5. Symptoms: Intermittent nausea. She reports that it usually starts around lunch time. Recommend trying ondansetron prior to eating lunch to see if that helps the afternoon nausea. 6. Hospice: TBD 7. Readmission to Hospital? TBD 8. Discharge plan: TBD 9. Nutrition: Regular diet 10. Spiritual and/or psychosocial support: [employer] are available upon request. 11. Palliative care will continue to follow. History of the present illness: Loyd Watkins is a 80yr old female with PMHX of sigmoid cancer, HTN, and GERD who was admitted on 08/26/2020 with intractable nausea and vomiting. Patient john sigmoid cancer and is being treated with Xeloda and Avastin. Per Dr. Diego, she had a good response per CT abdomen completed 2 weeks ago. Patient is weak and not at functional baseline. Per Dr. Diego, plan is to hold chemotherapy at this time. Nausea/vomiting is controlled with ondansetron. She reports nausea worsens in the afternoon aroundlunch time. She is unable to identify a trigger for the nausea. She was not taking ondansetron priorto eating. Patient was set to discharge to a TCU setting today and expressed to attending last evening that she wanted more information on hospice. Palliative care met with patient and daughters at the bedside. Patient denies nausea, pain or shortness of breath at this time. Past Medical History: Past Medical History: Diagnosis Date Asthma C. difficile diarrhea Cancer (HCC) duodenal cancer Hearing loss Hyperlipidemia Hypertension Osteoarthritis Osteopenia Reactive airway disease Past Surgical History: Past Surgical History: Procedure Laterality Date BIOPSY Done by Sukhjinder Levi at [facility] Interventional Radiology - biospy BUNIONECTOMY has had surgery three times for her bunions. COLONOSCOPY 11/24/2014 08-16-08 (after last colonoscopy due in 10 yrs) COLONOSCOPY W FECAL TRANSPLANT 05/12/2016 Procedure: COLONOSCOPY WITH FECAL TRANSPLANT;; Surgeon: Edwar Bowling MD D & C Dilation and curettage of uterus - done 1962 and 1967. JOINT REPLACEMENT Right 2007 Hip JOINT REPLACEMENT Left [place] [address] REPAIR ACHILLES TENDON TONSILLECTOMY Tonsillectomy and Adenoidectomy - age not documented UPPER ENDOSCOPY N/A 06/19/2020 Procedure: UPPER ENDOSCOPY, needs duodenal biopsy;; Surgeon: Dante Redd MD Allergies: Allergies Allergen Reactions Atorvastatin Other (Specify in Comments) Seasonal Unknown/Not Verified Simvastatin Other (Specify in Comments) Ibuprofen Nausea and Vomiting Medications: Current Facility-Administered Medications Medication Dose Route Frequency Provider Last Rate Last Admin influenza immunization reminder 1 each Does not apply Immunization prior to discharge Reese Pack MD sodium chloride 0.9% prefilled 10 mL syringe (Materials Management Item) 20 mL 20 mL IV Daily Reese Pack MD 20 mL at 08/30/20 0805 And sodium chloride 0.9% prefilled 10 mL syringe (Materials Management Item) 20 mL 20 mL IV As often as necessary prn Reese Pack MD And hEParin 100 units/ mL injection for heplock FLUSH 500 Units IV Daily Reese Pack MD 500Units at 08/30/20 0804 And hEParin 100 units/ mL injection for heplock FLUSH 500 Units IV As often as necessary prn Reese Pack MD loperamide (IMODIUM) capsule 2 mg 2 mg Oral Every 4 hours prn Bebe Menezes MD 2 mg at 08/30/20 0419 omeprazole (priLOSEC) capsule 20 mg 20 mg Oral daily Reese Pack MD 20 mg at 08/30/20 0616 ondansetron (ZOFRAN ODT) dispersible tablet 8 mg 8 mg Oral Every 8 hours prn Reese Pack MD 8 mg at 08/30/20 0419 prochlorperazine (COMPAZINE) tablet 10 mg 10 mg Oral 4 times a day prn Reese Pack MD 10 mg at 08/30/20 0812 salt and soda ORAL mouth rinse SOLN 5 mL 5 mL Oral 4 times a day prn Reese Pack MD sodium chloride 0.9% flush (adult) 10 mL 10 mL IV 2 times a day and prn Reese Pack MD 10 mL at 08/29/20 2109 heparin (porcine) injection solution 5,000 Units 5,000 Units Subcutaneous Every 8 hours Reese Pack MD 5,000 Units at 08/30/20 0616 acetaminophen (TYLENOL) tablet 650 mg 650 mg Oral Every 4 hours prn Reese Pack MD 650 mg at 08/30/20 0802 ondansetron (ZOFRAN) injection solution 4 mg 4 mg IV 4 times a day prn Reese Pack MD 4mg at 08/29/20 1344 Family History: History reviewed. No pertinent family history. Social History: Social History Socioeconomic History Marital status: Spouse name: Not on file Number of children: Not on file Years of education: Not on file Highest education level: Not on file Occupational History Not on file Social Needs Financial resource strain: Not on file Food insecurity Worry: Not on file Inability: Not on file Transportation needs Medical: Not on file Non-medical: Not on file Tobacco Use Smoking status: Never Smoker Smokeless tobacco: Never Used Substance and Sexual Activity Alcohol use: Not Currently Frequency: Never Drug use: Never Sexual activity: Not on file Lifestyle Physical activity Days per week: Not on file Minutes per session: Not on file Stress: Not on file Relationships Social connections Talks on phone: Not on file Gets together: Not on file Attends mandaeism service: Not on file Active member of club or organization: Not on file Attends meetings of clubs or organizations: Not on file Relationship status: Not on file Intimate partner violence Fear of current or ex partner: Not on file Emotionally abused: Not on file Physically abused: Not on file Forced sexual activity: Not on file Other Topics Concern Not on file Social History Narrative Not on file Psychosocial/Spiritual History: Social History Social History Narrative Not on file See also narrative psychosocial history under the history section of [facility]. Functional Status: ECOG 3 Diagnostics and Labs: Relevant diagnostic, laboratory and radiological studies have been reviewed in the Electronic Medical Record. Objective Current Vital Signs Temp: 95.9 F (35.5 C) BP: 111/60 Weight: 55.8 kg (123 lb) SpO2: 98 % Resp: 16 Pulse: 69 Current BMI (>50 = increased risk): 24.14 O2 Device: Room Air Pain Ratin Intake and Output Last 24 Hours 08/29 0700 - 08/30 0659 In: 360 Out: 1 Weight data is summarized as follows: Wt Readings from Last 3 Encounters: 08/27/20 55.8 kg (123 lb) 08/17/20 60.2 kg (132 lb 11.2 oz) 08/10/20 59.9 kg (132 lb 1.6 oz) Review of Systems: See HPI Pain - Denies Tiredness - Denies Drowsiness- Not observed Nausea - Intermittent Appetite - Eating well Shortness of breath - Denies Physical Examination: General: no apparent distress Mental Status: alert and oriented x 4 Chest: Regular rate, nonlabored Abdomen: soft, nontender, nondistended, bowel sounds audible Extremities: Trace edema noted in BLE Skin: Pale, warm, dry Family Meeting Participants: Family members attending: Daughter Fatmata, Rima, and Kaylah Present from the Palliative care team: Antonia Scanlon CNP (myself). Patient participation: Loyd has full decisional capacity at this time. Family Meeting: Reviewed purpose and benefit of the Palliative Care team with Loyd and her family. Loyd and her family shared how things have been going in the past few months. Overall Loyd has noticeda decline over the past few months. She was receiving chemotherapy and reports severe diarrhea and nausea/vomiting. Chemotherapy is on hold at this time. Loyd explained that coming to the hospital and the side effects related to chemotherapy are not an acceptable quality of life. Discussed options in direction of care: aggressive treatment (hospitalizations) vs comfort measures (goal shifts to focus on comfort and on living as well as she can for whatever time is left, aggressive treatment of pain or symptoms without attempting to prolong or shorten life). Questions about hospice were answered as able. They had many questions for CM regarding visitor restrictions at multiple facilities in her hometown area. CM aware. Provided emotional support for Loyd and her family. Thank you for this Palliative Care Consultation. The palliative care team will continue to follow Loyd and family to provide support during this hospitalization. Please feel free to page [phone] for any further questions or discussions. Antonia MONTANO Palliative Medicine Pager #[phone] Time: Chart review - 5 minutes Time spent with patient and/or family (in counseling and family meeting) - 30 minutes Coordination of care - 10 minutes Documentation - 15 minutes Total Time - 60 minutes of which greater than 50% was spent counseling patient & family and coordination of care. Cc. Leander Lima MD @[email or web address]@ *At least part of this note was generated using voice recognition software. Inadvertent word errors may have occurred such as homophones, homonyms, and heteronyms, which were not recognized during proofreading process. Evaristo Diego MD - 08/27/2020 3:25 PM CDTAssociated Order(s): CONSULT ONCOLOGY MEDICAL HEMATOLOGY ONCOLOGY CONSULT NOTE Date of Consult: 08/27/2020 NAME: Loyd Watkins is a 80yr female PCP: Leander Lima MD CSN: [id number] Reason for Consult: Duodenal cancer Requesting Provider: Bebe Menezes MD Impression / Plan 1. 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 Patient on chemotherapy Xeloda and Avastin. Last received Avastin was August 17, 2020. Last received Xeloda was August 23, 2020. Treatment on hold due to diarrhea. Continue to hold Xeloda. We will change the treatment plan to 1 week on and 1 week off on Xeloda. We will continue Avastin. She had a good response as per last CT scan done 2 weeks ago. 2. Currently patient admitted for nausea vomiting diarrhea. She has history of C. difficile colitis in the past. Recheck on C. difficile negative. Continue supportive care. Diarrhea most likely due to Xeloda. Nausea vomiting improved after taking supportive medication and Zofran. No clinical evidence of small bowel obstruction. 3. Acute kidney injury due to dehydration from nausea vomiting. 4. Multiple electrolyte abnormalities including hypokalemia hypomagnesemia from diarrhea. Discussed with the patient and her daughter regarding further management. They were concerned aboutongoing cancer treatment. I will make modifications and cancer treatment as above. We will also consult surgery to see if she can have surgical resection at this point. I sincerely thank you for allowing me to participate in the care of your patient. Please do not hesitate to call me if you have any questions or concerns. CC / HPI Chief Complaint Patient presents with Dehydration Pt states she is on chemo and has been having nausea and vomiting even with anti nausea medications. Pt states she is dehydrated and has not been able to keep much down since Thursday. She is 80-year-old woman who is currently under my treatment for GI malignancy. She presented in March 2020 with complaints of weight loss and abdominal pain with severe anemia with hemoglobin 8.5. CT scan at that time revealed large abdominal mass apparently arising from the duodenum causing obstructive uropathy. This mass crossed the midline and extended in the presacral space almost involving the sigmoid colon. Upper GI endoscopy showed a polypoid mass in the duodenum. Colonoscopy also revealed a sigmoid colon mass. This was considered not resectable at that time. Therefore neoadjuvant chemotherapy was considered. She received first cycle of FOLFOX May 02, 2020 which she tolerated poorly. She developed pancytopenia sepsis HSV esophagitis etc. This treatmentwas therefore discontinued and patient started on Xeloda and Avastin on June 29, 2020. She received her third treatment cycle on August 17, 2020. She has also been on Xeloda and has been taking 1500mg a day. With the last treatment she took Xeloda for 5 days and then she started having diarrhea.She called me on Thursday last week complaining of diarrhea and I told her to stop the medication. She was admitted yesterday. Her diarrhea became worse. She also started having nausea and vomiting. When admitted to the hospital she was found to have dehydration acute kidney injury elevated creatinine. Therefore admitted to the hospital and now receiving IV fluids and supportive medication. She did not have any fever. Mild abdominal pain was reported. No cough. No dizziness lightheadedness. No mouth sores. No headache blurred vision etc. I have been asked to evaluate her for recommendation regarding further oncology care and cancer management. ECOG Performance Status 2 Medications Current Facility-Administered Medications Medication Dose Route Frequency Provider Last Rate Last Admin metoprolol succinate (TOPROL XL) SR half-tablet (24 hr) 12.5 mg 12.5 mg Oral daily Reese Pack MD Stopped at 08/27/20 0911 influenza immunization reminder 1 each Does not apply Immunization prior to discharge Reese Pack MD sodium chloride 0.9% prefilled 10 mL syringe (Materials Management Item) 20 mL 20 mL IV Daily Reese Pack MD And sodium chloride 0.9% prefilled 10 mL syringe (Materials Management Item) 20 mL 20 mL IV As often as necessary prn Reese Pack MD And hEParin 100 units/ mL injection for heplock FLUSH 500 Units IV Daily Reese Pack MD And hEParin 100 units/ mL injection for heplock FLUSH 500 Units IV As often as necessary prn Reese Pack MD diphenoxylate-atropine (LOMOTIL) 2.5-0.025 mg tablet 1 tablet 1 tablet Oral 4 times a day Bebe Menezes MD 1 tablet at 08/27/20 1404 loperamide (IMODIUM) capsule 2 mg 2 mg Oral Every 4 hours prn Bebe Menezes MD potassium chloride 40 mEq/100 mL sterile water IV piggyback (CENTRAL LINE) 40 mEq IV 1 time Bebe Menezes MD 40 mEq at 08/27/20 1139 omeprazole (priLOSEC) capsule 20 mg 20 mg Oral daily Reese Pack MD 20 mg at 08/27/20 0911 ondansetron (ZOFRAN ODT) dispersible tablet 8 mg 8 mg Oral Every 8 hours prn Reese Pack MD prochlorperazine (COMPAZINE) tablet 10 mg 10 mg Oral 4 times a day prn Reese Pack MD salt and soda ORAL mouth rinse SOLN 5 mL 5 mL Oral 4 times a day prn Reese Pack MD sodium chloride 0.9% flush (adult) 10 mL 10 mL IV 2 times a day and prn Reese Pack MD heparin (porcine) injection solution 5,000 Units 5,000 Units Subcutaneous Every 8 hours Reese Pack MD 5,000 Units at 08/27/20 1404 sodium chloride 0.9% IV solution IV Continuous Reese Pack MD 100 mL/hr at 08/27/20 0627New Bag at 08/27/20 0627 acetaminophen (TYLENOL) tablet 650 mg 650 mg Oral Every 4 hours prn Reese Pack MD ondansetron (ZOFRAN) injection solution 4 mg 4 mg IV 4 times a day prn Reese Pack MD 4mg at 08/27/20 1524 Allergies Allergies Allergen Reactions Atorvastatin Other (Specify in Comments) Seasonal Unknown/Not Verified Simvastatin Other (Specify in Comments) Ibuprofen Nausea and Vomiting Medical / Surgical / Family History Past Medical History: Diagnosis Date Asthma C. difficile diarrhea Cancer (HCC) duodenal cancer Hearing loss Hyperlipidemia Hypertension Osteoarthritis Osteopenia Reactive airway disease Past Surgical History: Procedure Laterality Date BIOPSY Done by Sukhjinder Levi at [facility] Interventional Radiology -lx biospy BUNIONECTOMY has had surgery three times for her bunions. COLONOSCOPY 11/24/2014 08-16-08 (after last colonoscopy due in 10 yrs) COLONOSCOPY W FECAL TRANSPLANT 05/12/2016 Procedure: COLONOSCOPY WITH FECAL TRANSPLANT;; Surgeon: Edwar Bowling MD D & C Dilation and curettage of uterus - done 1962 and 1967. JOINT REPLACEMENT Right 2007 Hip JOINT REPLACEMENT Left 2013 Hip [id number] REPAIR ACHILLES TENDON TONSILLECTOMY Tonsillectomy and Adenoidectomy - age not documented UPPER ENDOSCOPY N/A 06/19/2020 Procedure: UPPER ENDOSCOPY, needs duodenal biopsy;; Surgeon: Dante Redd MD History reviewed. No pertinent family history. Problem List Patient Active Problem List Diagnosis Duodenal cancer (HCC) Malignant neoplasm of sigmoid colon (HCC) C. difficile diarrhea Hearing loss Hypertension Insomnia Mild intermittent asthma without complication Mixed hyperlipidemia OA (osteoarthritis) Osteopenia RAD (reactive airway disease) Dehydration Pancytopenia due to antineoplastic chemotherapy (HCC) Hypoalbuminemia due to protein-calorie malnutrition (HCC) Physical deconditioning PANDA (acute kidney injury) (HCC) Intractable vomiting with nausea Social History Social History Tobacco Use Smoking status: Never Smoker Smokeless tobacco: Never Used Substance Use Topics Alcohol use: Not Currently Frequency: Never ROS Ophthalmic: no change in vision ENT:no mouth sores, no thrush, no epistaxis, no sinus congestion, no sore throat Respiratory: no cough, Cardiovascular: no chest pain, palpitation Heme: no bleeding, no bruising Genito-Urinary: no dysuria, no trouble voiding, no hematuria Musculoskeletal: No new bone or muscle pain Lymphatics: no lymph node enlargement noted by patient Neurological: no weakness, no numbness, no tingling, no headache Dermatological: no rash, no other skin changes Psychological: mood normal Allergy and Immunology: no allergies Physical Exam BP 109/61 Pulse 61 Temp 97.9 F (36.6 C) Resp 16 Ht 1.575 m (5' 2") Wt 55.8 kg (123 lb) SpO2 98% BMI 22.5 kg/m2 Body mass index is 22.5 kg/m. General: Comfortable, no obvious distress Eyes: Sclera anicteric, no pallor Mouth: No oral lesions or thrush. CV: Regular rhythm, normal rate. No murmurs auscultated Resp: Clear to auscultation bilaterally, equal air entry bilaterally Abdomen: Soft, non tender, non distended. No hepatomegaly, no splenomegaly, no guarding, no rebound Extremities: No peripheral edema, no tenderness Musculoskeletal: No bone or muscle tenderness Lymphatic: No cervical, no supraclavicular, no axillary, no inguinal lymphadenopathy Neuro: Moves all four extremities. No focal deficits on limited exam. No obvious cranial nerve deficits. Skin: No rashes, Psych: Mood stable Appropriate affect, good insight Labs/Imaging Lab Results Component Value Date WBC 5.3 08/27/2020 NUCRBC 0 08/27/2020 RBC 3.79 (L) 08/27/2020 HEMOGLOBIN 12.1 08/27/2020 HEMATOCRIT 35.5 08/27/2020 MCV 93.7 08/27/2020 MCH 31.9 08/27/2020 MCHC 34.1 08/27/2020 PLTCOUNT 185 08/27/2020 NEUTROPCT 46.5 08/27/2020 BANDPCT 6.0 05/20/2020 LYMPHSPCT 27.2 08/27/2020 MONOSPCT 24.4 08/27/2020 EOSPCT 1.5 08/27/2020 BASOPHILPCT 0.2 08/27/2020 Lab Results Component Value Date GLUCOSE 93 08/27/2020 BUN 45 (H) 08/27/2020 CREATSERUM 1.80 (H) 08/27/2020 BCRATIO 25.0 08/27/2020 NA 134 (L) 08/27/2020 POTASSIUM 3.2 (L) 08/27/2020 CL 106 08/27/2020 CO2 15 (L) 08/27/2020 CA 8.6 08/27/2020 PROTEINTOTAL 7.6 08/26/2020 ALBUMIN 4.2 08/26/2020 ALKPHOS 134 08/26/2020 AST 25 08/26/2020 ALT 39 08/26/2020 BILITOTAL 0.6 08/26/2020 Recent Labs 04/13/20 1527 06/29/20 1105 08/10/20 0846 CEA 134.0* 160.0* 27.9* Evaristo Vicente MD [place] CC: 1. Bebe Menezes MD 2. Leander Lima MD documented in this encounter ED Notes Desiree Scott MD - 08/26/2020 9:12 PM CDT DIAGNOSIS 1. PANDA (acute kidney injury) (HCC) 2. Dehydration 3. Nausea vomiting and diarrhea 4. Chemotherapy adverse reaction, initial encounter ASSESSMENT/PLAN/DECISION MAKING: DISPOSITION Patient Admitted and Treated in this Facility Patient will be admitted. ThuAug 27, 2020 10:52 AM CDT FOLLOW UP INFORMATION DISCHARGE MEDS Medication List ASK your doctor about these medications acetaminophen 650 mg CR tablet Commonly known as: TYLENOL ARTHRITIS albuterol HFA 108 (90 Base) MCG/ACT inhaler Commonly known as: PROVENTIL,PROAIR,VENTOLIN capecitabine 500 MG tablet Commonly known as: XELODA Take 3 tablets (1,500 mg) by mouth 2 times a day for 28 doses on days 1-14 of each 21 day cycle. loperamide 2 mg capsule Commonly known as: IMODIUM Take 2 caps after the first loose stool, then 1 cap after each loose stool, but no more than 8 caps in 24 hours. metoprolol succinate 25 mg SR tablet (24 hr) Commonly known as: TOPROL XL omeprazole 20 mg capsule Commonly known as: priLOSEC ondansetron 8 mg dispersible tablet Commonly known as: ZOFRAN ODT Take 1 tablet (8 mg) by mouth Every 8 hours as needed for nausea Dissolve tablet on tongue. prochlorperazine 10 mg tablet Commonly known as: COMPAZINE Take 1 tablet (10 mg) by mouth 4 times a day as needed for nausea or vomiting salt and soda ORAL mouth rinse Soln 5mL qid sip and swish Theratears 0.25 % Soln ophthalmic solution Generic drug: carboxymethylcellulose HPI / History / ROS Chief Complaint Patient presents with Dehydration Pt states she is on chemo and has been having nausea and vomiting even with anti nausea medications. Pt states she is dehydrated and has not been able to keep much down since Thursday. HPI The history is provided by the patient and a relative. No lime kiln and recausticizing operator was used. Dehydration This is a recurrent problem. The current episode started more than 2 days ago. Pertinent negatives include no shortness of breath. 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 Last infusion was on August 17.-bevacizumab-awwb Takes xeloda orally. She has been troubled with severe nausea. Intermittent vomiting. Frequent watery diarrheal stools. No melena nor hematochezia. She been very weak over the last few days. Been drinking only little sips of water. Urine output has been decreased. No fever or chills. She denies pain. She feels severely weak. ALLERGIES Allergies Allergen Reactions Atorvastatin Other (Specify in Comments) Seasonal Unknown/Not Verified Simvastatin Other (Specify in Comments) Ibuprofen Nausea and Vomiting PROBLEM LIST: Patient Active Problem List Diagnosis Duodenal cancer (HCC) Malignant neoplasm of sigmoid colon (HCC) C. difficile diarrhea Hearing loss Hypertension Insomnia Mild intermittent asthma without complication Mixed hyperlipidemia OA (osteoarthritis) Osteopenia RAD (reactive airway disease) Dehydration Pancytopenia due to antineoplastic chemotherapy (HCC) Hypoalbuminemia due to protein-calorie malnutrition (HCC) Physical deconditioning PANDA (acute kidney injury) (HCC) Intractable vomiting with nausea MEDICAL/SURGICAL/SOCIAL HISTORY Past Medical History: Diagnosis Date Asthma C. difficile diarrhea Cancer (HCC) duodenal cancer Hearing loss Hyperlipidemia Hypertension Osteoarthritis Osteopenia Reactive airway disease Past Surgical History: Procedure Laterality Date BIOPSY Done by Sukhjinder Levi at [facility] Interventional Radiology -lx biospy BUNIONECTOMY has had surgery three times for her bunions. COLONOSCOPY 11/24/2014 08-16-08 (after last colonoscopy due in 10 yrs) COLONOSCOPY W FECAL TRANSPLANT 05/12/2016 Procedure: COLONOSCOPY WITH FECAL TRANSPLANT;; Surgeon: Edwar Bowling MD D & C Dilation and curettage of uterus - done 1962 and 1967. JOINT REPLACEMENT Right 2007 Hip JOINT REPLACEMENT Left 2013 Hip 15278 REPAIR ACHILLES TENDON TONSILLECTOMY Tonsillectomy and Adenoidectomy - age not documented UPPER ENDOSCOPY N/A 06/19/2020 Procedure: UPPER ENDOSCOPY, needs duodenal biopsy;; Surgeon: Dante Redd MD History reviewed. No pertinent family history. Social History Socioeconomic History Marital status: Spouse name: Not on file Number of children: Not on file Years of education: Not on file Highest education level: Not on file Tobacco Use Smoking status: Never Smoker Smokeless tobacco: Never Used Substance and Sexual Activity Alcohol use: Not Currently Frequency: Never Drug use: Never HOME MEDICATIONS No current outpatient medications on file. ROS Review of Systems Constitutional: Positive for appetite change and fatigue. Negative for fever. HENT: Negative. Eyes: Negative. Respiratory: Negative for chest tightness and shortness of breath. Cardiovascular: Negative. Gastrointestinal: Positive for diarrhea, nausea and vomiting. Endocrine: Negative. Genitourinary: Positive for decreased urine volume. Musculoskeletal: Negative for back pain. Allergic/Immunologic: Positive for immunocompromised state. Neurological: Positive for weakness and light-headedness. Hematological: Does not bruise/bleed easily. Physical / Results PHYSICAL EXAM ED Triage Vitals Temp Temp Source Pulse Resp BP SpO2 O2 Flow Rate (L/min) O2 Device 08/26/20213508/26/20213508/26/20212908/27/20 0145 08/26/20212908/26/202129 -- 08/26/202135 97.7 F (36.5 C) Oral 68 14 116/68 97 % RA Physical Exam Vitals signs and nursing note reviewed. Constitutional: Appearance: She is not toxic-appearing. Comments: Frail appearing HENT: Head: Normocephalic and atraumatic. Mouth/Throat: Comments: Oropharynx appears dry Eyes: Pupils: Pupils are equal, round, and reactive to light. Neck: Musculoskeletal: Normal range of motion. Cardiovascular: Rate and Rhythm: Normal rate. Pulses: Normal pulses. Pulmonary: Effort: Pulmonary effort is normal. Breath sounds: No wheezing, rhonchi or rales. Abdominal: General: Abdomen is flat. Tenderness: There is no abdominal tenderness. Musculoskeletal: General: No swelling. Skin: General: Skin is warm. Capillary Refill: Capillary refill takes less than 2 seconds. Neurological: General: No focal deficit present. Mental Status: She is alert. Psychiatric: Mood and Affect: Mood normal. Scoring Scales Hood Coma Scale Score: 15 ED COURSE Patient complains primarily of generalized weakness. Clear lung roland are noted. She has a benignabdomen. Her port is accessed. IV fluids are ordered. Laboratory studies are obtained. Glucose is 120. Creatinine is 2.06 with a BUN of 45. Bicarb is 13 consistent with dehydration. Magnesium low 1.7. Her blood count is quite good at white count of 5900 hemoglobin 12.9. Platelet count 180,000. Results for LOYD WATKINS ( ) as of 08/26/2020 23:15 Ref. Range 06/29/2020 11:05 07/20/2020 10:35 08/10/2020 08:46 08/26/2020 21:43 Creatinine Latest Ref Range: 0.60 - 1.10 mg/dL 0.83 0.91 1.27 (H) 2.06 (H) Normal saline increase to 200 mL per hour. She has significant volume depletion. Plan will be for admission and discussed laboratory findings and plan for admission with patient's family as well as patient. PROCEDURES Procedures MDM-CODING: MDM Number of Diagnoses or Management Options PANDA (acute kidney injury) (HCC): new and requires workup Chemotherapy adverse reaction, initial encounter: new and requires workup Dehydration: new and requires workup Nausea vomiting and diarrhea: new and requires workup Amount and/or Complexity of Data Reviewed Clinical lab tests: ordered and reviewed Tests in the medicine section of CPT: ordered and reviewed Decide to obtain previous medical records or to obtain history from someone other than the patient: yes ( Recent oncology notes are reviewed) Obtain history from someone other than the patient: yes Discuss the patient with other providers: yes ( presentation workup treatment plan discussed with hospitalist) Risk of Complications, Morbidity, and/or Mortality General comments: ED Medication Administration from 08/26/20202057 to 08/27/2020 0103 Date/Time Order Dose Route Action Action by 08/27/2020 0024 sodium chloride 0.9% IV solution 0 IV Stopped Vicky Freed RN 08/26/2020 2325 sodium chloride 0.9% IV solution IV Rate Change Vicky Freed RN 08/26/2020 2133 sodium chloride 0.9% IV solution IV New Bag Vicky Freed RN 08/27/2020 0024 sodium chloride 0.9% IV solution IV Rate Change Vicky Freed, XIAO . This note was created, at least in part, with the use of [employer] Voice Dictation System. Inadvertent typographical errors and/or unintended word substitutions due to software recognition problems, may still exist. documented in this encounter Miscellaneous Notes Case Mgmt - Fabiola Gallo LSW - 08/31/2020 10:36 AM CDTCASE MANAGEMENT / SOCIAL SERVICE FINAL TRANSITION PLAN TRANSITION DATE: 08/31 TRANSITION TIME: 1030 INTENDED PAYER SOURCE FOR AGENCY: Medicare TRANSITION DESTINATION: [facility], [place] DOES ACCEPTING FACILITY REQUIRE COVID TESTING BEFORE DISCHARGE: Needs one negative test within 24-48 hours TRANSITION TRANSPORTATION: Family Car TRANSPORTATION PAYMENT: Not applicable TRANSITION CHOICES OFFERED: Swing Bed DOES THE PATIENT HAVE A PRIMARY CARE PHYSICIAN? Yes Leander Lima MD PATIENT / SUBSTITUTE DECISION MAKER GOAL UPON TRANSITION: First Choice: Swing Bed PATIENT CHOICE EDUCATION: Choice form completed in Case Management note and copy given to patient/family Not applicable MEDICARE 3 IP MIDNIGHT CRITERIA MET: Yes: - RESOURCE(S) PROVIDED: nothing needed at this time DOES PATIENT HAVE CLOTHING TO WEAR AT DISCHARGE? Yes ANTICIPATED MODE OF TRANSPORT TO AND FROM FOLLOW UP APPOINTMENTS: As arranged by accepting facility VERIFIED CORRECT PHARMACY IS ENTERED FOR DISCHARGE: Yes - Pharmacy: Hospital pharmacy METHOD OF PRESCRIBING MEDICATIONS: Medications to be E-prescribed to above pharmacy TRANSITION ROUNDING COMPLETED WITH THE FOLLOWING: Patient / family Casting Cleaner Attending MD Bedside young adult librarian RN Discussed via telephone COMMENTS / PATIENT AND FAMILY RESPONSE TO PLAN: CM met with patient and daughters at bedside. Patient is still agreeable to dc to the swing bed in [place]. Confirmed admission with MikaylaJUSTA at the hospital ([phone]). She states that patient may be able to get her Covid shot while in their ho spital. Daughters will provide transport. No other concerns noted. SPECIAL TRANSITION DAY INSTRUCTIONS TO NURSE / MD: Nurse to Nurse: [phone] [place] screen approved: STACIE [id number] CURRENT READMISSION RISK SCORE / HANDOFF: Predictive Risk Score Risk of Unplanned Readmission: 29.7 Handoff given: N/A SIGNED : PRISCILLA Gill Framing Mechanic [place], [place] PH. [phone]; FX. [phone]; P. [phone] CASE MANAGEMENT REFERRAL EDUCATION Patient in need of the following services: Transitional Care / Long-Term Facility / Swing Bed Discussion of this need and/or printed listing of available agencies has been provided to patient/substitute decision maker. Opportunities have been given for questions to be asked and answered. Patient/Substitute decision maker agency preferences for services (list in order of preference): 1. Rew Swing bed Referrals Made: Profiled via [employer] to [facility] and [place] SNF/[facility] Medicare Comparison Information: Medicare guidelines require referring agencies to provide information regarding agency quality ratings. [facility] may assist with questions about facilities but cannot make recommendations. Patients and their families/decision makers are able to compare ratings of facilities at the following website: h ttps://www.medicare.gov/zmmfb-xmrz-ihgqgskuo/luve-ohbhmhc-srggbfu-[facility] r-providers or you may call 1-800-MEDICARE Acceptance/Placement: [facility] shares necessary clinical information with potential agencies to allow them to screen patients for safe admission to their facilities. This information is shared via secure communication. Acceptance by a post-acute facility is dependent on many factors including space, care needs, staffing, and insurance coverage. Financial disclosure: Verification of ownership of any agency/facility is available in the above Medicare website. [facility] is affiliated with [facility]-owned home care, hospice, andskilled nursing facilities, including agencies with [employer] in the name and [employer]. Additional agencies may not have [employer] in their name. Medicare guidelines require [facility] to provide a written list of options for your desired care. Youwill be provided a copy if desired. A copy of this document will be given to patient/substitute decision maker as confirmation of conversation regarding referrals and placement options. 08/31/2020 are Planning - Wilma Marks RN - 08/31/2020 2:10 AM CDT Problem: RISK FOR FALLS Goal: FALL PREVENTION BEHAVIOR Description: DEFINITION: 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 1=Never demonstrated, 2=Rarely demonstrated, 3=Sometimes demonstrated, 4=Often demonstrated, 5=Consistently demonstrated. Outcome: NOC Rating 3 Flowsheets (Taken 08/31/2020 020) Initial Score: 3 Target Score: 5 Plan of care reviewed with: Patient Patient specific goal for the day: Pt will use the call light to alert staff when she needs to get out of bed. Patient specific goal for the stay: free from injury upon discharge Patient Progress: Bed alarm on, pt verbalizes understanding about how to use call light. sleeping comfortably in bed. Occupational Therapy - Cherry Houser OTR/Magen - 08/30/2020 3:55 PM CDT Occupational Therapy Acute Care Progress Note Impression/Recommendations Pt requires increased assistance with ADLs and functional transfers compared to baseline performance. Pt presents with overall weakness/deconditioning as well as decreased activity tolerance. Pt will benefit from further inpatient therapies at a lower intensity therapy setting (i.e. ST-SNF, TCU, swing bed) in order to continue building strength and endurance while improving independence in ADL's andtransfers. Objective Cognition: Alert. Oriented x self, , location, city, month and year; [facility] Oxygen Level: >90% throughout session ADLs: Feeding: Not observed Grooming: CGA while standing at sink to wash hands and face; combed hair while seated with set up assist Dressing: Min assist to don/doff gown; CGA to SBA for LE dressing Toileting: CGA for edith-cares and clothing management Transfers: Bed: Not observed Chair: CGA Toilet: CGA Gait belt and 4WW used for all out of bed activity, ambulation/ transfer tasks for safety. Upon session completion, pt resting comfortably in chair with call light/ phone and tray table within reach. No questions/ concerns. [place] alarm activated. Pain: 0/10 Location: Pt denies pain throughout session Education Education/Training provided: Role of OT, plan of care, Safety strategies to utilize with functional transfers and ADL performance; Use of call light and importance of calling for assistance Learners: Patient Readiness: Acceptance Method of Training: Verbal education, demonstration Response: Verbalized/demonstrated understanding, will benefit from continued reinfocement Adaptive Equipment Recommendations To further assess Plan to obtain adaptive equipment: To further assess. Adaptive Equipment Available: grab bars in shower and near toilet, shower chair, physician neonatology, 4WW Goals Patient/Family Stated Goal for Session: go to the bathroom Short Term Goals: ADL's: Patient will: #1)[id number] tasks with contact guardassist while standing at sink (met) #2)complete LE dressing withcontact guardassist and AE prn (met) #3)complete toilet transfer withstand byassist and AE prn(ongoing) Cognition: Patient will: #4)be oriented X3 [id number] sessions to increase awareness of surroundings (met) #5)answer safety/judgement questions with90% accuracy to determine level of supervision required upon discharge (ongoing) UE Strengthening/conditioning: Patient will:#6)[id number] of continuous UE activity to increase physical conditioning for ADL and IADLtasks (ongoing) Shelter Goals: Patient will beindependentwith bed, chair, toilet, car transfers with adaptive equipment as needed. (ongoing) Patient will beSBAwith self care skills with adaptive equipment as needed. (ongoing) Patient continues to progress towards goals. Charges Treatment/Minutes: Today's Evaluation/Treatment Self care/home management: 24 minutes Total Treatment Time: 24 minutes Treatment Session 08/17 Weekly Assessment/Plan (Day 5): Continue OT POC as appropriate Therapist Alpha Pager Number [phone] are Planning - Darrius Burleson RD, BRADYD - 08/30/2020 3:53 PM CDT Problem: IMBALANCED NUTRITION: LESS THAN BODY REQUIREMENTS Goal: NUTRITIONAL STATUS: NUTRIENT INTAKE Description: DEFINITION: Nutrient intake to meet metabolic needs. 1=Not adequate, 2=Slightly adequate, 3=Moderately adequate, 4=Substantially adequate, 5=Totally adequate. Flowsheets (Taken 08/30/2020 1790) Initial Score: 1 Target Score: 4 Patient specific goal for the day: Tolerate a diet. Consume >50% of meals and supplements Patient specific goal for the stay: Prevent signifcant weight loss and muscle wasting. Achieve goal for stay: By discharge ase [facility] - Fabiola Gallo LSW - 08/30/2020 2:50 PM CDTCASE MANAGEMENT / SOCIAL SERVICE TRANSITION PLAN - PROGRESS NOTE PLAN: Awaiting Medical Doctor Recommendations for Transition Transition Options Being Explored BARRIERS TO TRANSITION: Medical barriers:- DOES ACCEPTING FACILITY REQUIRE COVID TESTING BEFORE DISCHARGE: Other: TBD COMMENTS / PATIENT AND FAMILY RESPONSE TO PLAN:CM met with patient and 3 daughters today. They had questions regarding hospice and SNF/AL. CM answered questions. Rhina INTERPERSONAL COMMUNICATIONS PROFESSOR from Palliative Care met with patient and daughters per consult from Dr. Menezes. Patient is still unsure if she feels she [facility] swing [facility] for therapies or to dc on hospice. Per request of the daughters, CM researched the current visitation policy with 4 different places in [facility]. Discussed findings with patient and daughters. They were most interested in the [facility] which actually has a "Care Suite", which has 3 levels of care, with the highest level being full care mostly for EOL on hospice. Daughters contacted Khloe from [facility] and went down for a tour this afternoon. Patient states she is excited about this place as she has friends that live there. CM also spoke to [facility] swing bed, who states they are still offering a bed, if patient would like to comefor therapies initially. She states they would need her to dc early in the day and do not accept on the weekend. CM will continue to work on dc planning with both patient and family. Addendum: Patient has agreed to dc to the swing bed in [place] for a short therapy stay. Daughters will be able to provide transport. Plan is to dc at 10- 3150 tomorrow. Nurse to Nurse: [phone] [place] screen approved: STACIE [id number] IS PATIENT'S ADMISSION ASSOCIATED WITH TIA, ISCHEMIC, OR HEMORRHAGIC STROKE?: No PATIENT / SUBSTITUTE DECISION MAKER GOAL UPON TRANSITION: First Choice: Swing Bed Transitional Care ANTICIPATED NEEDS UPON TRANSITION: Swing Bed Transitional Care RESOURCE(S) PROVIDED: nothing needed at this time ANTICIPATED MODE OF TRANSPORT UPON TRANSITION: Family Car ANTICIPATED MODE OF TRANSPORT TO AND FROM FOLLOW UP APPOINTMENTS: Family Car VERIFIED CORRECT PHARMACY IS ENTERED FOR DISCHARGE: Hospital Pharmacy TRANSITION ROUNDING COMPLETED WITH THE FOLLOWING: Patient / family Casting Cleaner Attending MD Bedside RN Discussed via telephone SIGNED : PRISCILLA Gill Framing Mechanic [place], [place] PH. [phone]; FX. [phone]; P. [phone] Nutrition Team - Darrius Burleson, SHALA, LRD - 08/30/2020 12:50 PM CDT Nutrition Therapy Follow Up Assessment Hospital Day: 4 days Active Problems: Intractable nausea and vomiting Diarrhea PANDA on CKD stage 3 likely pre-renal Hypokalemia Hyponatremia Hypomagnesemia Sigmoid cancer on capecitabine Hypomagnesemia PMH: Asthma, CDiff, Cancer, Hyperlipidemia, Hypertension, Osteoarthritis, Osteopenia, Reactive airway disease Recommendations: Calorie Counts Small frequent meals/snacks throughout the day with adequate protein Offer Boost Breeze if patient refusing meals or intake <50% Malnutrition Summary Malnutrition Assessment Date: 08/27/20 Moderate (non-severe) protein calorie malnutrition Malnutrition Characteristics in the Context of Chronic Illness (greater than 3 months): Energy Intake: Less than or equal to 75% intake of estimated energy needs for greater than or equal to 1 month Severe Weight Loss: Greater than 5% in 1 month Subcutaneous Fat Loss: Mild Muscle Loss: Moderate Interventions: Monitor oral intake/advance diet as tolerated;Supplement diet with ONS (oral nutrition supplements)/nutrient dense foods NUTRITION ASSESSMENT Anthropometrics: Height: 157.5 cm (5' 2") Admission Weight: Weight: 59.9 kg (132 lb) as of 08/26/2020 per estimation Most Recent Weight: Weight: 55.8 kg (123 lb) (08/27/20 0100) per bed scale Weight Change: 0 kg (0 lb) since admission BMI: Body mass index is 22.5 kg/m. IBW: 50 kg %IBW: 112% (based on most recent weight) Usual Body Weight: 133 lbs (recently) Unintentional Weight Loss: >2% in 1 week >5% x 1 month. >7.5% x 3 months Vitals WEIGHT 08/27/2020 123 lb 08/26/2020 08/17/2020 132 lb 11.2 oz 08/10/2020 132 lb 1.6 oz 07/20/2020 135 lb 07/06/2020 135 lb 4.8 oz 06/29/2020 137 lb 6.4 oz 06/19/2020 06/13/2020 06/13/2020 134 lb 06/12/2020 134 lb 11.2 oz 05/29/2020 05/29/2020 139 lb Estimated Needs: 9007-5862 kcal/day ([place]enzie St. Jeor x 1.2-1.3 Using: Most Recent Weight) 65-75 gm protein (1.2-1.4 gm/kg Using:Most Recent Weight) Fluids per MD Estimated average intake over the last 3 days: 300 kcal and 10 gm protein, which meets: 20% of estimated kcal needs and 15% of estimated protein needs. Patient also receiving Boost Breeze throughout the day from the floor. This is not accounted for in estimated intake. Intake Records: Intake Prior to Admit: Patient was eating well up until the week prior to admission. Unable to get aclear diet history as patient was falling asleep. Current Intake: Poor intake. Patient continues to be nauseous and says it gets worse throughout the day. Patient reports drinking the Boost breeze supplements. Current Diet: Soft/ Surgical Soft Physical Assessment: Edema: (per paedodontist at today) none GI Assessment: ? Abdominal exam:Normal inspection, present bowel sounds per paedodontist at 1100 today. ? Stool Frequency: 4x/day over the last 4 days Wounds/Pressure Points: (per paedodontist at 0136 today) ? Ear Blanchable Redness Functional Status: WNL Nutrition Focused Physical Exam: Completed by RD on 08/27/20 Below the Eye (fat): Slightly dark circles, somewhat hollow look (mild-moderate) Taoist (muscle): Slight depression (mild-moderate)(mod) Buccal (fat): Flat cheeks (moderate) Clavicle (muscle): Some protrusion of bone (mild-moderate)(Mod) Shoulder (muscle)/Deltoid muscle: Acromion process slightly protrudes (mild-moderate) Triceps/Biceps (fat): (SAMI) Hand/Interosseous (muscle): Slightly depressed (mild-moderate)(mod) Calf (muscle): Not well developed (mild-moderate)(mild) Nutritionally-Relevant Medications, Vitamins and Minerals: Prilosec, Imodium, Zofran Nutritionally-Relevant Biochemical Data: (08/29/2020) BUN 29 H Creatinine 1.16 H Allergies/Food Intolerance: Loyd is allergic to atorvastatin; seasonal; simvastatin; and ibuprofen. Culturally Voodoo Needs: no INTERVENTIONS Encouraged adequate calories and optimal protein in small, frequent meals and snacks Continue sending snacks and supplements BID EMR reviewed Calorie Counts started MONITORING/EVALUATION Monitor ability to consume and tolerate adequate intake to approximate estimated needs with accomodation of preferences and tolerances until intake is sustained within desirable limits Monitor I&O, weight trends, nutrition-related labs and medications, clinical status, and planof care r/t need for nutrition intervention and provide as warranted Nutrition Therapy will reassess every 1-[address], PAUL Pager # [phone] hysical Therapy - Erica Macias PT - 08/30/2020 11:01 AM CDT Physical Therapy Acute Inpatient Treatment Note ASSESSMENT/RECOMMENDATIONS Patient continues to have generalized weakness, decreased activity tolerance and 6/10 pain and stiffness a right knee . Ice pack applied at end of session 6-Clicks Basic Mobility Score: 16 Activity Prescription with Nursing: With assist of 0, walk in alexandra 3 times per day. At a minimum, up to chair for all meals or 3 times per day. Encourage patient to perform personal cares at sink when able. Encourage walking to bathroom rather than use commode or bedpan. Anticipated D/C Service needs: Low intensity setting SUBJECTIVE Patient sitting on chair agreeable to PT session OBJECTIVE Bed Mobility: Sit to supine Tamiko mainly to lift BLE on bed Transfers: 3 Reps of Sit to/from stand with SBA /CGA with 4-WW Pivot transfers from chair to bed SBA/CGA with 4-WW Gait: ~100 feet with 4-WW with 1 brief standing rest , slow gait , c/o fatigue Gait speed : 0.34 m/s Gait Speed (Walking Speed the 6th vital sign) *4 m walk test recommended as most feasible 1 m pre-zone, 4 m timed walk, 1 m post-zone Speed Necessary for Community Function Household Ambulator 0.4m/s or less Limited Community Ambulator 0.4 m/s 0.8 m/s Community Ambulator .8 m/s 1.2 m/s Cross Streets & Normal walking speed 1.2 m/s 1.6 m/s *Minimal Detectable Change - improvements of 0.1 m/s predicts improved health status/outcomes; same with 0.1 m/s indication of regression. Stairs: Therapeutic Exercises: 10 reps of supine static quads, gluteal squeezes, ankle pumps Balance Training: Standing balance Other: c/o pain and stiffness at right knee. Ice pack applied at end of session , after session patient supine on bed needs in reach. Education: PT POC PLAN Continue plan of care. Today's Treatment: Gait Trainin minutes Therapeutic Exercise: 9 minutes Therapeutic Activity: 15 minutes TOTAL TIMED CODES: 24 minutes TREATMENT TOTAL TIME: 24 minutes Erica Macias PT Pager [phone] ase [facility] - Fabiola Gallo LSW - 08/29/2020 4:28 PM CDTCASE MANAGEMENT / SOCIAL SERVICE TRANSITION PLAN - PROGRESS NOTE PLAN: Awaiting Medical Doctor Recommendations for Transition Transition Options Being Explored BARRIERS TO TRANSITION: Medical barriers:- Profile to Swing bed/TCU in [place] DOES ACCEPTING FACILITY REQUIRE COVID TESTING BEFORE DISCHARGE: Other: TBD COMMENTS / PATIENT AND FAMILY RESPONSE TO PLAN: CM met with patient and 2 daughters at bedside. Discussed dc planning. At this time daughters have concerns about patient continuing to have N/V and the readiness to dc tomorrow. CM did place a message to Dr. Menezes and Dr. Diego to address this. CM did get bed offers from [facility] in [place] and [facility] in [place] however they wanted to make sure patient and family are aware that their therapy dept is short staffed. Family wanted CM to clarify this in the AM as the admissions person was already gone today. CM will clarify this for the family. CM will continue to work with patient and family on dc planning. IS PATIENT'S ADMISSION ASSOCIATED WITH TIA, ISCHEMIC, OR HEMORRHAGIC STROKE?: No PATIENT / SUBSTITUTE DECISION MAKER GOAL UPON TRANSITION: First Choice: Swing Bed Transitional Care ANTICIPATED NEEDS UPON TRANSITION: Swing Bed Transitional Care RESOURCE(S) PROVIDED: nothing needed at this time ANTICIPATED MODE OF TRANSPORT UPON TRANSITION: Family Car ANTICIPATED MODE OF TRANSPORT TO AND FROM FOLLOW UP APPOINTMENTS: Family Car VERIFIED CORRECT PHARMACY IS ENTERED FOR DISCHARGE: TBD TRANSITION ROUNDING COMPLETED WITH THE FOLLOWING: Patient / family Casting Cleaner Attending MD Bedside RN Discussed via telephone SIGNED : PRISCILLA Gill Framing Mechanic [place], [place] PH. [phone]; FX. [phone]; P. [phone] are Planning - Kerry Sloan RN - 08/29/2020 4:26 PM CDT Problem: IMBALANCED NUTRITION: LESS THAN BODY REQUIREMENTS Goal: NUTRITIONAL STATUS: NUTRIENT INTAKE Description: DEFINITION: Nutrient intake to meet metabolic needs. 1=Not adequate, 2=Slightly adequate, 3=Moderately adequate, 4=Substantially adequate, 5=Totally adequate. Flowsheets (Taken 08/29/2020 2945) Initial Score: 2 Target Score: 4 Plan of care reviewed with: Patient Son/Daughter Patient specific goal for the day: Patient will be free of nausea/vomiting. Patient specific goal for the stay: Patient will tolerate diet as ordered. Achieve goal for stay: By discharge Patient Progress: Patient reporting mild nausea this shift. 1 small 300 mL emesis. Prn zofran given as ordered. Patient reporting little appetite and refusing meals. Will continue to monitor. hysical Therapy - Umm Mosley, PT - 08/29/2020 10:45 AM CDT Physical Therapy Acute Inpatient Treatment Note ASSESSMENT/RECOMMENDATIONS Patient continues to fatigue quickly; also drowsy at end of session. Ambulating at her fastest paceof 0.36 m/s today (up from 0.28 m/s yesterday). Continued weakness, increased balance deficits and R knee pain today. Applied ice at end of session. 6-Clicks Basic Mobility Score: 16 Activity Prescription with Nursing: With assist of 1, walk in alexandra 3 times per day. At a minimum, up to chair for all meals or 3 times per day. Encourage patient to perform personal cares at sink when able. Encourage walking to bathroom rather than use commode or bedpan. Anticipated D/C Service needs: Low intensity setting SUBJECTIVE Reports R knee pain when walking or bending knee. Started wearing her shoes today with a lift due toLLD in hopes that will help knee; no immediate improvement yet. OBJECTIVE Bed Mobility: Sit to sup with SBA; increased effort. Transfers: Sit to/from stand with SBA; increased effort. CGA at times. Gait: 125 ft with 4WW, steady, slow pace, cues for heel contact due to shuffled gait; minimal improvement and needing frequent cues. Posture diminishing with distance, reporting greater fatigue. Gait Speed: Patient was able to walk with a gait speed of 0.36 m/s. Gait Speed (Walking Speed the 6th vital sign) *4 m walk test recommended as most feasible 1 m pre-zone, 4 m timed walk, 1 m post-zone Speed Necessary for Community Function Household Ambulator 0.4m/s or less Limited Community Ambulator 0.4 m/s 0.8 m/s Community Ambulator .8 m/s 1.2 m/s Cross Streets & Normal walking speed 1.2 m/s 1.6 m/s *Minimal Detectable Change - improvements of 0.1 m/s predicts improved health status/outcomes; same with 0.1 m/s indication of regression. Stairs: Therapeutic Exercises: Standing toe raises x 5 reps, marching with UE support and assist in bracingwalker due to tendency to lose balance backwards despite cues. Balance Training: Other: R knee effused; no warmth or redness. Applied ice gel pack at end of session. GOALS Bed Mobility: Patient will transfer sit to/from supine with independently. (ongoing) Transfers: Patient will transfer from sit to stand with independently and equipment as needed to allow for safe household mobility. (ongoing) Ambulation: Patient will be able to ambulate at least 150 feet over even terrain using least restrictive assistive device independently to allow for safe functional mobility in the home. (ongoing) Provision of appropriate assistive device and education as needed. (ongoing) PLAN Continue plan of care. Today's Treatment: Gait Training: minutes Therapeutic Exercise: 10 minutes Therapeutic Activity: 18 minutes TOTAL TIMED CODES: 28 minutes TREATMENT TOTAL TIME: 28 minutes Umm Mosley PT Alpha pager [phone] Occupational Therapy - Kadie Scott OTR/L - 08/29/2020 9:28 AM CDT Occupational Therapy Acute Care Progress Note Impression/Recommendations Recommending that pt would benefit from a low intensity setting for continued therapy upon medicallystable d/c. Pt presenting with decreased activity tolerance this date and requires assist of 1 and use of 4ww for safe completion of ADLs/functional transfers. OT will follow acutely to address UE stren gthening/coordination, functional mobility/transfers, functional endurance, cognition, AE needs, andto provide education as needed to maximize independence and safety with ADL/IADL performance. OT will update recommendations as able/appropriate. Objective Cognition: Pt alert/oriented this date, does present hard of hearing U/E: WFL for session activities Oxygen Level: On RA, VSS ADLs: Feeding: Not observed Grooming: Reports completing prior to start of session Dressing: Mod A to don clean gown over backside, assist provided to manage gown behind back, SBA to don socks from seated EOB position, uses crossover technique with LLE and bends at waist to floor to don sock on RLE Toileting: Declines need Transfers: Bed: Mod A for supine to sit EOB Chair: CGA with 4ww, cues for safety and technique provided throughout transfers Toilet: Not observed Comments: Pt ambulates from EOB>approx 50' in hallway>bedside chair this date with CGA and use of 4ww, ambulates slowly but tolerates well overall, no LOB noted. All out of bed activity completed with gait belt, non-skid footwear, and 4ww. To end session, pt resting comfortably in bedside chair with call light, phone, and tray table within reach christiano alarm activated. Pt educated to use call light to notify nurse of need for assistance or request of OOB activity, pt verbalized understanding. Pt's daughter present in room throughout session/to end session. Pain: Reports mild pain in BLE, does not rate Education Education/Training provided: Role of OT, plan of care, functional transfers/mobility, ADLs, safety, call light education Learners: Patient and family Readiness: Acceptance Method of Training: Verbal education, demonstration Response: Verbalized/demonstrated understanding, will benefit from continued reinfocement Adaptive Equipment Recommendations To further assess Plan to obtain adaptive equipment: To further assess. Goals Patient/Family Stated Goal for Session: None stated, pt agreeable to session. RN (Kerry) ok'd session. Short Term Goals: ADL's: Patient will: #1)complete 2 grooming tasks with contact guard assist while standing at sink #2)complete LE dressing with contact guard assist and AE prn (ongoing) #3)complete toilet transfer with stand by assist and AE prn Cognition: Patient will: #4)be oriented X3 for 3 consecutive sessions to increase awareness of surroundings (ongoing) #5)answer safety/judgement questions with 90% accuracy to determine level of supervision required upon discharge UE Strengthening/conditioning: Patient will: #6)complete 10-20 minutes of continuous UE activity to increase physical conditioning for ADL and IADL tasks Auto Glass Technician Goals: Patient will be independent with bed, chair, toilet, car transfers with adaptive equipment as needed. (ongoing) Patient will be SBA with self care skills with adaptive equipment as needed. Patient continues to progress towards goals. Charges Treatment/Minutes: Today's Evaluation/Treatment Self care/home management: 17 minutes Total Treatment Time: 17 minutes Treatment Session 07/20 Weekly Assessment/Plan (): See [facility] Therapist Alpha Pager Number [phone] Clinical Team - Kerry Sloan RN - 08/28/2020 5:34 PM CDTPatient reporting nausea this afternoon with one small emesis. Prn zofran administered per mar. Little appetite, refusing meals. Resting comfortably in bed majority of shift. VSS on RA. Will continue to monitor. are Planning - Kerry Sloan RN - 08/28/2020 5:33 PM CDT Problem: IMBALANCED NUTRITION: LESS THAN BODY REQUIREMENTS Goal: NUTRITIONAL STATUS: NUTRIENT INTAKE Description: DEFINITION: Nutrient intake to meet metabolic needs. 1=Not adequate, 2=Slightly adequate, 3=Moderately adequate, 4=Substantially adequate, 5=Totally adequate. Flowsheets (Taken 08/28/2020 1730) Initial Score: 1 Target Score: 4 Plan of care reviewed with: Patient Patient specific goal for the day: Patient will be free of nausea/vomiting. Patient specific goal for the stay: Patient will tolerate diet as ordered. Achieve goal for stay: Within 24 hours Patient Progress: Patient reporting mild nausea this shift. 1 small unmeasurable emesis. Prn zofran given as ordered. Patient reporting little appetite and refusing meals. Will continue to monitor. ase Mgmt - Fabiola Gallo LSW - 08/28/2020 4:01 PM CDTCASE MANAGEMENT / SOCIAL SERVICE TRANSITION PLAN - PROGRESS NOTE PLAN: Awaiting Medical Doctor Recommendations for Transition Transition Options Being Explored BARRIERS TO TRANSITION: Medical barriers:- Profile to Swing bed/TCU in [facility] DOES ACCEPTING FACILITY REQUIRE COVID TESTING BEFORE DISCHARGE: Other: TBD COMMENTS / PATIENT AND FAMILY RESPONSE TO PLAN: CM met with patient and family at bedside. Discusseddc planning. Patient is agreeable to dc to either the swing bed or TCU for short term placement. Daughter Kaylah was at bedside. She states she will get together with the rest of the family as they are looking for patient to move to an AL following a TCU/SB stay. No other concerns noted. IS PATIENT'S ADMISSION ASSOCIATED WITH TIA, ISCHEMIC, OR HEMORRHAGIC STROKE?: No PATIENT / SUBSTITUTE DECISION MAKER GOAL UPON TRANSITION: First Choice: Swing Bed Transitional Care ANTICIPATED NEEDS UPON TRANSITION: Swing Bed Transitional Care RESOURCE(S) PROVIDED: nothing needed at this time ANTICIPATED MODE OF TRANSPORT UPON TRANSITION: Family Car ANTICIPATED MODE OF TRANSPORT TO AND FROM FOLLOW UP APPOINTMENTS: Family Car VERIFIED CORRECT PHARMACY IS ENTERED FOR DISCHARGE: TBD TRANSITION ROUNDING COMPLETED WITH THE FOLLOWING: Patient / family Casting Cleaner Attending MD Bedside RN Discussed via telephone SIGNED : PRISCILLA Gill Framing Mechanic [place], [place] PH. [phone]; FX. [phone]; P. [phone] Occupational Therapy - Cherry Houser OTR/Magen - 08/28/2020 11:08 AM CDT Occupational Therapy Acute Care Evaluation Impression/Recommendations Pt requires increased assistance with ADLs and functional transfers compared to baseline performance(min to set up assist with ADLs, CGA with transfers). Pt presents with overall deconditioning. Pt will benefit from further inpatient therapies at a lower intensity therapy setting (i.e. ST-SNF, TCU, swing bed) in order to continue building strength and endurance while improving independence in ADL'sand transfers. If pt/family decline placement, she'd benefit from initial 24/7 assistance upon return home as well as HHOT. Admitting Diagnosis: ICD-10-CM 1. PANDA (acute kidney injury) (HCC) N17.9 2. Dehydration E86.0 3. Nausea vomiting and diarrhea R11.2 R19.7 4. Chemotherapy adverse reaction, initial encounter T45.1X5A History of Present Illness: Refer to H&P for details Past Medical History: Past Medical History: Diagnosis Date Asthma C. difficile diarrhea Cancer (HCC) duodenal cancer Hearing loss Hyperlipidemia Hypertension Osteoarthritis Osteopenia Reactive airway disease Activity Level: Progressive mobility Precautions: Christiano/bed alarm Infection Control: High risk hazardous medication (Wear two pairs of chemo gloves and a chemo gown during patient care activities involving bodily fluids. If risk of splashing, wear a face shield.) Patient History Social/Home Environment: Patient lives: alone House: apartment (senior care apt) Home Environment: Bed/Bath on main: yes Bath Setup: Walk-In Shower with curtain Employment: retired Prior Level of Function Independent with: dressing, bathing, grooming, feeding, toileting, functional transfers, laundry Assistance needed with: cooking, cleaning, groceries, transportation, medication management Comments: Pt has a lease administration supervisor that does the floors however family assists with other cleaning tasks, transportation, retrieving groceries, making meals and setting up medications. Adaptive Equipment Available: grab bars in shower and near toilet, shower chair, physician neonatology, 4WW Present for Eval: Pt, 2 family members Objective Activities of Daily Living: Feeding: Independent drinking from water glass with items in reach Grooming: set up assist while seated; CGA to wash hands while standing at sink after toileting Upper Extremity Dressing: min assist Lower Extremity Dressing: minimum assistance to don/doff brief Bathing: Not observed Toileting: Min assist with edith-cares following loose stool - pt initiated task however unsure if she was thorough and requested assistance Transfers: Bed: stand > sit CGA; sit > supine SBA Chair: CGA Toilet: CGA Tub/Shower: Not observed Comments: Gait belt and FWW used for all out of bed activity, ambulation/ transfer tasks for safety. Upon session completion, pt resting comfortably in bed with call light/ phone and tray table within reach. No questions/ concerns. Bed alarm activated. Pain: Pain at rest: 0/10 Pain during activity: 0/10 Location: pt denies pain throughout session Upper Extremity Function: Range of Motion: Right:within functional limits Left: within functional limits Strength: Right: limited Left: limited Endurance: limited, fatigued with light activity Oxygen Level: >90% throughout session Coordination: intact Sensation: intact Edema: no Dominant Hand: right Comments: Manager Financial Services strength WFL Orientation: Cognition: alert Attention: intact Following Directions: intact Safety Awareness: impaired - cues to place brakes on 4WW Impulsivity: mild Comments: Oriented x self, , location, city, month and year Visual/Perception: Pt denies acute changes Glasses: yes Education Education/Training provided: Role of OT, plan of care, Safety strategies to utilize with functional transfers and ADL performance; Energy conservation techniques to utilize with ADL's and functional transfers; Use of call light and importance of calling for assistance Learners: Patient and family Readiness: Acceptance Method of Training: Verbal education, demonstration Response: Verbalized/demonstrated understanding, will benefit from continued reinforcement Adaptive Equipment Recommendations Adaptive Equipment Recommended: To further assess, sock aid? Plan to obtain adaptive equipment: To further assess. Assessment/Plan Assessment: Patient demonstrates decreased UE strength, decreased physical conditioning, decreased independence with ADL/IADL tasks, decreased independence with functional mobility and decreased safety judgement/insight into deficits Patient showing a decrease in ADL/transfer performance and will benefit from continued OT. Plan: Patient to be seen 3-5 times a week to work toward above goals Treatment plan will consist of Thursday thru Thursday sessions Goals Patient/Family Stated Goal for Session: go to the bathroom and return to bed Short Term Goals: ADL's: Patient will: #1)complete 2 grooming tasks with contact guard assist while standing at sink #2)complete LE dressing with contact guard assist and AE prn #3)complete toilet transfer with stand by assist and AE prn Cognition: Patient will: #4)be oriented X3 for 3 consecutive sessions to increase awareness of surroundings #5)answer safety/judgement questions with 90% accuracy to determine level of supervision required upon discharge UE Strengthening/conditioning: Patient will: #6)complete 10-20 minutes of continuous UE activity to increase physical conditioning for ADL and IADL tasks Shelter Goals: Patient will be independent with bed, chair, toilet, car transfers with adaptive equipment as needed. Patient will be SBA with self care skills with adaptive equipment as needed. Treatment Provided Evaluation completed followed by ADL/transfer training. Refer to above sections for details of performance. Charges Treatment/Minutes: Today's Evaluation/Treatment Evaluation Self care/home management: 16 minutes Total for time-based codes: 16 minutes Total treatment time: 29 minutes Evaluation Complexity PMH/Comorbidities that affect Occupational Performance: Refer to above listed PMH Occupational Profile/Medical and Therapy History: LOW - Brief history relating to presenting problem Patient Assessment: LOW - 1-3 performance deficits relating to physical, cognitive, psychosocial limitations/restrictions Clinical Decision Making: LOW - Low complexity, limited amount of treatment options, no assessment modification, no comorbidities Evaluation Complexity: Low Therapist Alpha Pager Number: [phone] Physical Therapy - Umm Mosley PT - 08/28/2020 9:12 AM CDT Physical Therapy Acute Inpatient Initial Evaluation ASSESSMENT/RECOMMENDATIONS Patient presents with decreased independence with mobility, slow gait speed (0.28 m/s), drowsiness at times. 6-Clicks Basic Mobility Score: 16 Activity Prescription with Nursing: With assist of 1, walk in alexandra 3 times per day. At a minimum, up to chair for all meals or 3 times per day. Assist patient to complete exercises 10 times, 3 times per day. Sit to stands and in standing: leg lifts out to the side, marching, air boxing. Encourage patient to perform personal cares at sink when able. Encourage walking to bathroom rather than use commode or bedpan. Anticipated D/C Service needs: HHPT or low intensity; Will update as patient progresses. Diagnosis: ICD-10-CM 1. PANDA (acute kidney injury) (HCC) N17.9 2. Dehydration E86.0 3. Nausea vomiting and diarrhea R11.2 R19.7 4. Chemotherapy adverse reaction, initial encounter T45.1X5A Prescription: Eval and Treat Admit Date: 08/26/2020 Pertinent Medical / Surgical History: Patient has a past medical history of Asthma, C. difficile diarrhea, Cancer (HCC), Hearing loss, Hyperlipidemia, Hypertension, Osteoarthritis, Osteopenia, and Reactive airway disease. She also has no past medical history of Myocardial infarction (HCC), Seizures (HCC), Sleep apnea, Stroke (HCC), or Substance abuse (HCC). 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 Current medical status: Admitted for nausea, vomiting, diarrhea; likely in relation to chemotherapy. At this point ongoing chemo plan is unclear per pt and family. Activity Orders: Activity as tolerated, Progressive Mobility Bundle, Precautions: None. Isolation: None. SUBJECTIVE Social History: Patient lives: Alone. Home environment: Apartment--senior community. Home entry steps: 0 Rails: 0 Steps to lower level: 0 Rails: 0 Steps to upper level: 0 Rails: 0 Employment: Retired. Prior Level of Function: Activities of Daily Living: Daughter has been helping with cooking for the last 4 days. Otherwise,pt has been indep with dressing, showering, but does not drive; kids get groceries. 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 Mobility: independent with rollator. History of falls: No Home O2: None Adaptive equipment available: Rollator, grab bars. Patient Concerns: Concerned she'll be too tired at home upon discharge. Patient/Family Goals: Wants to get up to the chair today. OBJECTIVE Observation: Resting in bed, in no acute distress. Patient seen at bedside. Patient presents with IV. Gait belt applied prior to out of bed activity. Cognition: Alert and orientated x4 though drowsy when not stimulated. Pain: At rest: 0 With activity: 0 Posture: Mildly flexed posture. Range of Motion: Bilateral lower extremities WFL Refer to Occupational Therapy report for upper extremity range of motion. Strength: Bilateral lower extremities grossly 4/5. Refer to Occupational Therapy report for upper extremity strength testing. Transfers: Bed mobility: standby assistance Supine to Sit: standby assistance Sit to Supine: not assessed Sit to/from Stand: standby assistance Stand Pivot: standby assistance Comments: Increased effort for bed mobility. Balance: Sitting Balance: Good. Standing Balance: Good with 4WW. Perturbation Testing: Not assessed. Gait: 100 feet, standby assistance using 4-WW Gait Quality Slow pace, shuffled gait. Gait Speed: Patient was able to walk with a gait speed of 0.28 m/s. Gait Speed (Walking Speed the 6th vital sign) *4 m walk test recommended as most feasible 1 m pre-zone, 4 m timed walk, 1 m post-zone Speed Necessary for Community Function Household Ambulator 0.4m/s or less Limited Community Ambulator 0.4 m/s 0.8 m/s Community Ambulator .8 m/s 1.2 m/s Cross Streets & Normal walking speed 1.2 m/s 1.6 m/s *Minimal Detectable Change - improvements of 0.1 m/s predicts improved health status/outcomes; same with 0.1 m/s indication of regression. 5x Yzi-ev-Rullp Patient is able to perform 5 sit to stands in 36.32 seconds; however pt does use UEs so only tracking time to track progress rather than for predictive purposes. Stair Negotiation: Not assessed. Response to Activity: no significant change. At end of session patient up in chair, call light within reach, encouraged patient to use call lightfor assistance, family present Education: Patient was educated on role of acute PT, goals of PT session, daily activity recommendations, and discharge guidelines today through explanation. They accepted teaching and verbalized understanding. Interdisciplinary Communication: Discussed daily activity recommendations with patient's RN and update on current mobility status. GOALS Goals: Bed Mobility: Patient will transfer sit to/from supine with independently. Transfers: Patient will transfer from sit to stand with independently and equipment as needed to allow for safe household mobility. Ambulation: Patient will be able to ambulate at least 150 feet over even terrain using least restrictive assistive device independently to allow for safe functional mobility in the home. Stairs: Provision of appropriate assistive device and education as needed. PLAN PT Frequency of therapy recommended: 5x/wk Physical Therapy Services: bed mobility training transfer training gait training strength/power/endurance training for head/neck/limb/pelvic floor/trunk/ventilatory muscles Evaluation, goals, and plan discussed with patient Today's Treatment Evaluation: Completed Gait: minutes Exercise: minutes Therapeutic Activity: 10 minutes TOTAL TIMED CODES: 10 minutes TREATMENT TOTAL TIME: 45 Minutes Umm Mosley PT Alpha pager [phone] Occupational Therapy - Cherry Houser OTR/Magen - 08/27/2020 4:14 PM CDTOT orders received and reviewed. OT attempted however pt busy with other discipline. OT will follow up as able/appropriate 08/28/20. are Planning - Darrius Burleson RD, PAUL - 08/27/2020 3:47 PM CDT Problem: IMBALANCED NUTRITION: LESS THAN BODY REQUIREMENTS Goal: NUTRITIONAL STATUS: NUTRIENT INTAKE Description: DEFINITION: Nutrient intake to meet metabolic needs. 1=Not adequate, 2=Slightly adequate, 3=Moderately adequate, 4=Substantially adequate, 5=Totally adequate. Flowsheets (Taken 08/27/2020 8288) Initial Score: 1 Target Score: 4 Patient specific goal for the day: Patient will tolerate the current diet order. Patient will consume >75% of meals Patient specific goal for the stay: Prevent weight loss and muscle wasting. Meet energy and protein needs. Achieve goal for stay: By discharge are Planning - Nickie Stearns CHAPLAIN - 08/27/2020 3:25 PM CDTSpiritual Care Consult The patient was laying quietly in bed in the darkened room. She commented that she has had a lot ofnausea and vomiting, and had just returned from the bathroom. She spoke about her recent health, her chemo, and spoke sadly about the cycle of feeling well for a short time, then experiencing nausea, diarrhea, and vomiting. When asked if the good days are worth the bad days, she said, "Yes." Loyd also talked about her seven children and their spouses, and how much care they have been taking with her. She feels very blessed. She also spoke about her bethanie, and said that she believes that God is carrying her through this. The patient became very sleepy, so offered prayer for and end to the illness cycle, strength and compassion for her family and her care team. The patient was appreciative of the contact and the prayer. Chaplains with the Spiritual Care department are available 05/01. Please page #[phone] for further spiritual support. ase Love - Fabiola Gallo LSW - 08/27/2020 11:01 AM CDTCASE MANAGEMENT / SOCIAL SERVICE TRANSITION PLAN - INITIAL ASSESSMENT TRANSITION PLAN: Awaiting Medical Doctor Recommendations for Transition BARRIERS TO TRANSITION: Medical barriers:- Oncology Consult IVF Monitor N/V COMMENTS / PATIENT AND FAMILY RESPONSE TO PLAN: CM met with patient and family at bedside. Inrroduced self and explained the CM role. Patient states she lives alone on the a 1st level handicap accessible apartment. 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 She states she is independent with all ADL's at this time. Patient has 7 children in which 2 live fairly close to her otherwise all the rest are also very supportive and are willing to assist if needed. Per daughter Kaylah, she states her mother is not as sick as the last time she was in. She states that she and other family members are available to stay with her if needed as this is what they had done previously. She did have home health prior however this ended in June. Patient states she is agreeable with this if recommended. Discussed that CM will be able to assist with any dc services needed. ADMISSION DX: No admission diagnoses are documented for this encounter. PATIENT STATUS: OP in a Bed RELEASE OF INFORMATION: Yes -- verbal for: dc planning SOURCES OF INFORMATION (See demographics for contact information): Family: Daughter Medical Record Patient CURRENT LIVING SITUATION / LEVEL OF ASSISTANCE: Lives alone Independent COMMUNITY SERVICES: Housekeeping HEALTHCARE DIRECTIVE: Yes-On File and reviewed POWER OF ENTERPRISE DATA ARCHITECT: Healthcare Power of Netbackup Administrator FINANCIAL CONCERNS: No Concerns PRIMARY CARE PHYSICIAN: Yes Leander Lima MD : No IS PATIENT'S ADMISSION ASSOCIATED WITH TIA, ISCHEMIC, OR HEMORRHAGIC STROKE?: No LANGUAGE / COMMUNICATION BARRIERS: No PATIENT / SUBSTITUTE DECISION MAKER GOAL UPON TRANSITION: First Choice: Home: Family/Friend Support ANTICIPATED NEEDS, TRANSITION CHOICES OFFERED: Home Health: Nurse, Occupational Therapy and Physical Therapy Home: Family/Friend Support RESOURCE(S) PROVIDED: nothing needed at this time DOES PATIENT HAVE CLOTHING TO WEAR AT DISCHARGE? Yes ANTICIPATED MODE OF TRANSPORT UPON DISCHARGE: Other: TBD VERIFIED CORRECT PHARMACY IS ENTERED FOR DISCHARGE: Yes - Pharmacy: - [facility] CURRENT READMISSION RISK SCORE Predictive Risk Score Risk of Unplanned Readmission: 23.4 Please refer to readmission risk assessment flowsheet for further details. SIGNED : PRISCILLA Gill Framing Mechanic [place], [place] PH. [phone]; FX. [phone]; P. 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 Hypomagnesemia PMH: Asthma, CDiff, Cancer, Hyperlipidemia, Hypertension, Osteoarthritis, Osteopenia, Reactive airway disease Recommendations: Continue soft/surgical soft diet Small frequent meals/snacks throughout the day with adequate protein Offer Boost Breeze if patient refusing meals or intake <50% Malnutrition Summary Malnutrition Assessment Date: 08/27/20 Moderate (non-severe) protein calorie malnutrition Malnutrition Characteristics in the Context of Chronic Illness (greater than 3 months): Energy Intake: Less than or equal to 75% intake of estimated energy needs for greater than or equal to 1 month Severe Weight Loss: Greater than 5% in 1 month Subcutaneous Fat Loss: Mild Muscle Loss: Moderate Interventions: Monitor oral intake/advance diet as tolerated;Supplement diet with ONS (oral nutrition supplements)/nutrient dense foods NUTRITION ASSESSMENT Anthropometrics: Height: 157.5 cm (5' 2") Admission Weight: Weight: 59.9 kg (132 lb) as of 08/26/2020 per estimation Most Recent Weight: Weight: 55.8 kg (123 lb) (08/27/20 0100) per bed scale Weight Change: 0 kg (0 lb) since admission BMI: Body mass index is 22.5 kg/m. IBW: 50 kg %IBW: 112% (based on most recent weight) Usual Body Weight: 133 lbs (recently) Unintentional Weight Loss: >2% in 1 week >5% x 1 month. >7.5% x 3 months Vitals WEIGHT 08/27/2020 123 lb 08/26/2020 08/17/2020 132 lb 11.2 oz 08/10/2020 132 lb 1.6 oz 07/20/2020 135 lb 07/06/2020 135 lb 4.8 oz 06/29/2020 137 lb 6.4 oz 06/19/2020 06/13/2020 06/13/2020 134 lb 06/12/2020 134 lb 11.2 oz 05/29/2020 05/29/2020 139 lb Estimated Needs: [id number] kcal/day ([place]ckenzie St. Jeor x 1.2-1.3 Using: Most Recent Weight) 65-75 gm protein (1.2-1.4 gm/kg Using:Most Recent Weight) Fluids per MD Estimated average intake over the last 1 days: 0 kcal and 0 gm protein, which meets: 0 % of estimated kcal needs and 0 % of estimated protein needs. Intake Records: Intake Prior to Admit: Patient was eating well up until the week prior to admission. Unable to get aclear diet history as patient was falling asleep. Current Intake: Eating small amounts. Current Diet: Nutrition (From admission, onward) Start Ordered 08/27/[address] [facility]; Boost Breeze BID BID Comments: Give supplement cold with medications twice a day. The supplement is an intervention for identified nutrition risk factors. * Do not give if patient is NPO (unless the orders specify NPO with supplement) or if medication should not be given with food. Question Answer Comment Location [facility] Dietary Supplement Boost Breeze 08/27/2013508/26/20 2355 Diet - Clear Liquid Now Question: Standard Diets Answer: Clear Liquid 08/26/20 2353 08/26/20 2355 ADVANCE DIET TOLERATED ONCE 08/26/20 2353 Physical Assessment: Edema: (per paedodontist at today) not documented GI Assessment: ? Abdominal exam:per paedodontist at today. ? Stool Frequency: 1x/day over the last 1 days Wounds/Pressure Points: (per paedodontist at 0136 today) ? Ear Blanchable Redness Functional Status: WNL Nutrition Focused Physical Exam: Completed by RD on 08/27/20 Below the Eye (fat): Slightly dark circles, somewhat hollow look (mild-moderate) Taoist (muscle): Slight depression (mild-moderate)(mod) Buccal (fat): Flat cheeks (moderate) Clavicle (muscle): Some protrusion of bone (mild-moderate)(Mod) Shoulder (muscle)/Deltoid muscle: Acromion process slightly protrudes (mild-moderate) Triceps/Biceps (fat): (SAMI) Hand/Interosseous (muscle): Slightly depressed (mild-moderate)(mod) Calf (muscle): Not well developed (mild-moderate)(mild) Nutritionally-Relevant Medications, Vitamins and Minerals: Prilosec, IVF Nutritionally-Relevant Biochemical Data: (08/27/2020) Sodium 134L Potassium 3.2L BUN 45H Creatinine 1.8H Allergies/Food Intolerance: Loyd is allergic to atorvastatin; seasonal; simvastatin; and ibuprofen. Culturally Voodoo Needs: no INTERVENTIONS Encouraged adequate calories and optimal protein in small, frequent meals and snacks Will send snacks and supplements BID Conducted NFPE Obtained diet history Consult acknowledged and EMR reviewed MONITORING/EVALUATION Monitor ability to consume and tolerate adequate intake to approximate estimated needs with accomodation of preferences and tolerances until intake is sustained within desirable limits Monitor I&O, weight trends, nutrition-related labs and medications, clinical status, and planof care r/t need for nutrition intervention and provide as warranted Nutrition Therapy will reassess every 1-[address], PAUL Pager # [phone] are Planning - Jackie Vanessa RN - 08/27/2020 3:39 AM CDT Problem: RISK FOR FALLS Goal: FALL PREVENTION BEHAVIOR Description: DEFINITION: 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 1=Never demonstrated, 2=Rarely demonstrated, 3=Sometimes demonstrated, 4=Often demonstrated, 5=Consistently demonstrated. Outcome: NOC Rating 3 Flowsheets (Taken 08/27/2020 5411) Target Score: 5 Plan of care reviewed with: Patient Patient specific goal for the day: Pt will use the call light to alert staff when she needs to get out of bed. Patient Progress: Bed alarm on, pt verbalizes understanding about how to use call light. Steady gaitbut patient complains of generalized weakness. Resting comfortably in bed. Will continue to monitor. linical Team - SydJackie holloway RN - 08/27/2020 3:20 AM CDTVerified the following with Sho Marcos RN. Code status order: DNR Patient understands and agrees Code status band applied linical Team - Lambert Aguilar RN - 08/27/2020 2:02 AM CDTPatient arrived from emergency department with A crew on a cart. She was able to ambulate to the bathroom with assist x 1 staff, walker and gait belt. She does wish staff to call her daughter and let her know she is at the [facility]. 0200: Attempted to call daughter, no response. Will attempt later. linical Team - Jackie Vanessa RN - 08/27/2020 1:03 AM CDTArrived at E accompanied by ambulance crew. Admitted for dehydration and acute kidney injury.Currently denies complaints of pain. IV fluid of NS infusing at 100 mL/hr. Settled in room 547 andoriented to call light, bed/tv control. Upon Admission to [facility], skin assessment completed with Sho Marcos RN. Upon skin assessment including pressure points findings include: blanchable redness bilaterally behind the ears from mask (barrier cream applied). Incontinence dermatitis on bottom from loose stools. Dry skin on arms and legs, lotion offered. No other skin concerns. Plan/Intervention: will encourage activity as tolerated. documented in this encounter Plan of Treatment Date Type Specialty Care Team Description 09/07/2020 Office Visit Oncology Noemy Ballard, [facility] NURSE [address] [place] [address] [phone] 09/07/2020 Infusion Visit INFUSION documented as of this encounter Procedures Procedure Name Priority Date/Time Associated Comments Diagnosis SARS-COV-2, INFLUENZA STAT 08/29/2020 3:05 Re sults for this A+B, AND/OR RSV PM CDT procedure ar e in NUCLEIC ACID TESTING the res ults PANEL section. LAB ONLY-COMPLETE Routine 08/29/2020 6:38 Result s for this BLOOD COUNT WITH AM CDT procedure a re in DIFFERENTIAL the results section. BASIC METABOLIC PANEL Routine 08/29/2020 6:38 Re sults for this AM CDT procedure are i n the results section. LAB ONLY-COMPLETE Routine 08/29/2020 6:38 Result s for this BLOOD COUNT WITH AM CDT procedure a re in DIFFERENTIAL the results section. LAB ONLY-COMPLETE Routine 08/28/2020 7:00 Result s for this BLOOD COUNT WITH AM CDT procedure a re in DIFFERENTIAL the results section. BASIC METABOLIC PANEL Routine 08/28/2020 7:00 Re sults for this AM CDT procedure are i n the results section. LAB ONLY-COMPLETE Routine 08/28/2020 7:00 Result s for this BLOOD COUNT WITH AM CDT procedure a re in DIFFERENTIAL the results section. LAB ONLY-COMPLETE Routine 08/27/2020 6:42 Result s for this BLOOD COUNT WITH AM CDT procedure a re in DIFFERENTIAL the results section. BASIC METABOLIC PANEL Routine 08/27/2020 6:42 Re sults for this AM CDT procedure are i n the results section. LAB ONLY-COMPLETE Routine 08/27/2020 6:42 Result s for this BLOOD COUNT WITH AM CDT procedure a re in DIFFERENTIAL the results section. CLOSTRIDIUM DIFFICILE STAT 08/27/2020 4:13 Re sults for this BY NAAT (PCR/LAMP) AM CDT procedure are in the results section. URINALYSIS MICROSCOPIC STAT 08/27/2020 4:13 R esults for this AM CDT procedure are i n the results section. URINALYSIS DIPSTICK STAT 08/27/2020 4:13 Resu lts for this REFLEX TO MICROSCOPIC AM CDT proced ure are in the results section. LAB ONLY-COMPLETE STAT 08/26/2020 9:43 Result s for this BLOOD COUNT WITH PM CDT procedure a re in DIFFERENTIAL the results section. MAGNESIUM STAT 08/26/2020 9:43 Results for this PM CDT procedure are i n the results section. COMPREHENSIVE STAT 08/26/2020 9:43 Results fo r this METABOLIC PANEL PM CDT procedure ar e in the results section. LAB ONLY-COMPLETE STAT 08/26/2020 9:43 Result s for this BLOOD COUNT WITH PM CDT procedure a re in DIFFERENTIAL the results section. documented in this encounter Results SARS-COV-2, INFLUENZA A+B, AND/OR RSV NUCLEIC ACID TESTING PANEL (08/29/2020 3:05 PM CDT) Pathologist Sig nature SARS-CoV-2 Not Detected Not Detected [facility] Specimen Respiratory - Entire nasopharynx (body s tructure) Narrative Performed At Please read entire report. Results for Influenza A and B or [facility] RSV may also be available depending on which viruses y our provider selected for testing. Your Covid-19 test is negative: 1)Avoiding close contact is s till recommended. 2)Cover your coughs and snee zes. 3)Wash your hands often with soap and wate r for at least 20 seconds or use an alcohol-based employment manager containing over 60% alcohol. Avoid touch ing your face. 4)Avoid sharing personal household items, including dishes, cups, utensils, towels, clothing, or bedding. These items should be cleaned thoroughly with soap and water after use. Clean all "high touch" surfaces i n your home daily. 5) Monitor your symptoms. Contact your provider if you are feeling worse. If you have shortness of breath or difficulty breathing, call 911. This assay is for in vitro diagnostic use under FDA Em ergency Use Authorization only. Optimal performance of this test requires appropriate specimen collection, storage, and transp ort to the test site. Detection of SARS-CoV-2 RNA may be affected by sample collection methods, patient factors (eg, presence of symptoms), and/or stage of infection. False-negative results may arise from degradation of v iral RNA during shipping/storage. Results should be interpreted by a trained professiona l in conjunction with the patient s history and clinical signs and symptoms, and epidemiological risk factors. Negative (Not Detected) results do not preclude infect ion with the SARS-CoV-2 virus and should not be the sole b asis of patient treatment/management or public health decision . Follow up testing should be performed according to the current CDC recommendations. This test was performed by polymerase chain reaction ( PCR) on the GeneXpert instrument. Performing Organization Address City/State/Zipcode Phone Number [address] [address] [phone] LAB ONLY-COMPLETE BLOOD COUNT WITH DIFFERENTIAL (08/29/2020 6:38 AM CDT) Pathologist Sig nature WBC 5.5 4.0 - 11.0 K/uL [facility] RBC 3.44 (L) 3.80 - 5.30 [facility] M/uL CLINIC Hemoglobin 10.8 (L) 11.5 - 15.8 [facility] g/dL [facility] Hematocrit 32.2 (L) 35.0 - 45.0 % [facility] MCV 93.6 80.0 - 98.[address] [facility] MCH 31.4 25.5 - 34.[address] [facility] MCHC 33.5 31.5 - 36.5 [facility] g/dL [facility] RDW-CV 19.3 (H) 11.5 - 15.5 % [facility] RDW-SD 65.0 (H) 35.5 - 50.[address] [facility] Platelet Count 179 140 - 400 K/uL [facility] MPV 9.9 8.5 - 12.[address] [facility] Seg Neut Absolute 2.8 1.8 - 8.0 K/uL [facility] Lymphocytes Absolute 1.7 0.8 - 4.1 K/uL [facility] Monocytes Absolute 0.8 0.0 - 1.0 K/uL [facility] Eosinophils Absolute 0.1 0.0 - 0.7 K/uL [facility] Basophil Absolute 0.0 0.0 - 0.2 K/uL [facility] Immature Granulocyte 0.01 0.00 - 0.06 [facility] Absolute K/uL CLINIC Neutrophils Abs. 2,800 /uL [facility] (Segs and Bands) [facility] Neutrophils Percent 51.5 % [facility] Lymphocytes Percent 30.3 % [facility] Monocytes Percent 15.2 % [facility] Immature Granulocyte 0.2 % [facility] Percent CLINIC Eosinophils Percent 2.4 % [facility] Basophil Percent 0.4 % [facility] Nucleated RBC 0 /[address] [facility] Specimen Blood - Venous blood specimen (specimen) Performing Organization Address City/State/Zipcode Phone Number [address] [address] [phone] BASIC METABOLIC PANEL (08/29/2020 6:38 AM CDT) Pathologist Sig [facility] Glucose 83 70 - 100 mg/dL [facility] BUN 29 (H) 6 - 22 mg/dL [facility] Creatinine 1.16 (H) 0.60 - 1.10 [facility] mg/dL [facility] BUN/Creatinine Ratio 25.0 10.0 - 25.[address] [facility] Sodium 137 135 - 145 meq/L [facility] Potassium 3.5 3.5 - 5.3 meq/L [facility] Chloride 111 (H) 99 - 110 meq/L [facility] CO2 16 (L) 20 - 29 meq/L [facility] Anion Gap with K 14 6 - 20 meq/L [facility] Calcium 8.3 (L) 8.5 - 10.5 [facility] mg/dL [facility] Age [address] [facility] eGFR Non- 45 (L) >=60 [facility] Bahraini mL/min/1.73m2 [facility] eGFR 54 (L) >=60 [facility] mL/min/1.73m2 [facility] Specimen Blood - Venous blood specimen (specimen) Performing Organization Address City/State/Zipcode Phone Number [address] [address] LAB ONLY-COMPLETE BLOOD COUNT WITH DIFFERENTIAL (08/28/2020 7:00 AM CDT) Pathologist Sig nature WBC 6.2 4.0 - 11.0 K/uL [facility] RBC 3.63 (L) 3.80 - 5.30 [facility] M/uL [facility] Hemoglobin 11.5 11.5 - 15.8 [facility] g/dL [facility] Hematocrit 34.4 (L) 35.0 - 45.0 % [facility] MCV 94.8 80.0 - 98.[address] [facility] MCH 31.7 25.5 - 34.[address] [facility] MCHC 33.4 31.5 - 36.5 [facility] g/dL [facility] RDW-CV 19.0 (H) 11.5 - 15.5 % [facility] RDW-SD 64.5 (H) 35.5 - 50.0 [facility] Platelet Count 186 140 - 400 K/uL [facility] MPV 9.6 8.5 - 12.[address] [facility] Seg Neut Absolute 4.0 1.8 - 8.0 K/uL [facility] Lymphocytes Absolute 1.5 0.8 - 4.1 K/uL [facility] Monocytes Absolute 0.7 0.0 - 1.0 K/uL [facility] Eosinophils Absolute 0.1 0.0 - 0.7 K/uL [facility] Basophil Absolute 0.0 0.0 - 0.2 K/uL [facility] Immature Granulocyte 0.01 0.00 - 0.06 [facility] Absolute K/uL [facility] Neutrophils Abs. 4,000 /uL [facility] (Segs and Bands) [facility] Neutrophils Percent 63.9 % [facility] Lymphocytes Percent 23.7 % [facility] Monocytes Percent 10.6 % [facility] Immature Granulocyte 0.2 % [facility] Percent CLINIC Eosinophils Percent 1.3 % [facility] Basophil Percent 0.3 % [facility] Nucleated RBC 0 /[address] [facility] Specimen Blood - Venous blood specimen (specimen) Performing Organization Address City/State/Zipcode Phone Number [address] [address] BASIC METABOLIC PANEL (08/28/2020 7:00 AM CDT) Pathologist [facility] nature Glucose 91 70 - 100 mg/dL [facility] BUN 35 (H) 6 - 22 mg/dL [facility] Creatinine 1.46 (H) 0.60 - 1.10 [facility] mg/dL [facility] BUN/Creatinine Ratio 24.0 10.0 - 25.[address] [facility] Sodium 137 135 - 145 meq/L [facility] Potassium 3.6 3.5 - 5.3 meq/L [facility] Chloride 113 (H) 99 - 110 meq/L [facility] CO2 13 (L) 20 - 29 meq/L [facility] Anion Gap with K 15 6 - 20 meq/L [facility] Calcium 8.4 (L) 8.5 - 10.5 [facility] mg/dL CLINIC Age [address] [facility] eGFR Non- 34 (L) >=60 [facility] Bahraini mL/min/1.73m2 CLINIC eGFR 42 (L) >=60 [facility] mL/min/1.73m2 CLINIC Specimen Blood - Venous blood specimen (specimen) Performing Organization Address City/State/[place] [address] LAB ONLY-COMPLETE BLOOD COUNT WITH DIFFERENTIAL (08/27/2020 6:42 AM CDT) Pathologist Sig nature WBC 5.3 4.0 - 11.0 K/uL [facility] RBC 3.79 (L) 3.80 - 5.30 [facility] M/uL CLINIC Hemoglobin 12.1 11.5 - 15.8 [facility] g/dL [facility] Hematocrit 35.5 35.0 - 45.0 % [facility] MCV 93.7 80.0 - 98.[address] [facility] MCH 31.9 25.5 - 34.[address] [facility] MCHC 34.1 31.5 - 36.5 [facility] g/dL [facility] RDW-CV 18.7 (H) 11.5 - 15.5 % [facility] RDW-SD 62.7 (H) 35.5 - 50.[address] [facility] Platelet Count 185 140 - 400 K/uL [facility] MPV 10.0 8.5 - 12.0 [facility] Seg Neut Absolute 2.5 1.8 - 8.0 K/uL [facility] Lymphocytes Absolute 1.5 0.8 - 4.1 K/uL [facility] Monocytes Absolute 1.3 (H) 0.0 - 1.0 K/uL [facility] Eosinophils Absolute 0.1 0.0 - 0.7 K/uL [facility] Basophil Absolute 0.0 0.0 - 0.2 K/uL [facility] Immature Granulocyte 0.01 0.00 - 0.06 [facility] Absolute K/uL CLINIC Neutrophils Abs. 2,500 /uL [facility] (Segs and Bands) [facility] Neutrophils Percent 46.5 % [facility] Lymphocytes Percent 27.2 % [facility] Monocytes Percent 24.4 % [facility] Immature Granulocyte 0.2 % [facility] Percent CLINIC Eosinophils Percent 1.5 % [facility] Basophil Percent 0.2 % [facility] Nucleated RBC 0 /[address] [facility] Specimen Blood - Blood specimen (specimen) Performing Organization Address [facility] Phone Number [address] [address] BASIC METABOLIC PANEL (08/27/2020 6:42 AM CDT) Pathologist Sig nature Glucose 93 70 - 100 mg/dL [facility] BUN 45 (H) 6 - 22 mg/dL [facility] Creatinine 1.80 (H) 0.60 - 1.10 [facility] mg/dL [facility] BUN/Creatinine Ratio 25.0 10.0 - 25.[address] [facility] Sodium 134 (L) 135 - 145 meq/L [facility] Potassium 3.2 (L) 3.5 - 5.3 meq/L [facility] Chloride 106 99 - 110 meq/L [facility] CO2 15 (L) 20 - 29 meq/L [facility] Anion Gap with K 16 6 - 20 meq/L [facility] Calcium 8.6 8.5 - 10.5 [facility] mg/dL [facility] Age [address] [facility] eGFR Non- 27 (L) >=60 [facility] Bahraini mL/min/1.73m2 [facility] eGFR 33 (L) >=60 [facility] mL/min/1.73m2 [facility] Specimen Blood - Blood specimen (specimen) Performing Organization Address City/[facility] Phone Number [address] [address] [phone] URINALYSIS MICROSCOPIC (08/27/2020 4:13 AM CDT) WBC Urine 11-20 /hpf (A) Negative, 0-5 [facility] /hpf [facility] RBC Urine 6-10 /hpf (A) Negative, 0-2 [facility] /hpf CLINIC Squamous Epithelial Few (11-20) Negative, Occ [facility] Cells /lpf (0-10) /lpf, Few CLINIC (11-20) /lpf Bacteria Occ (0-10) Negative [facility] /hpf (A) [facility] Hyaline Cast 0-2 /lpf 0-2 /lpf [facility] Granular Cast 0-2 /lpf (A) Negative [facility] Specimen Urine - Urine specimen obtained by clean catch procedure (specimen) Performing Organization Address [facility] Phone Number [address] [address] URINALYSIS DIPSTICK REFLEX TO MICROSCOPIC (08/27/2020 4:13 AM CDT) Color Urine Yellow Shirley, Dark [facility] Yellow, Straw, [facility] Yellow, Colorless Clarity Urine Slightly Cloudy Clear [facility] () [facility] Glucose Urine Negative Negative [facility] Bilirubin Urine Negative Negative [facility] Ketones Urine Negative Negative, 5 [facility] mg/dL, 10 mg/dL [facility] Specific Ballinger 1.012 1.002 - 1.[address] [facility] Blood Urine Negative Negative [facility] PH Urine 5.0 5.0, 5.5, 6.0, [facility] 6.5, 7.0, 7.5, [facility] 8.0 Protein Urine Negative Negative [facility] Urobilinogen < 2 mg/dL < 2 mg/dL [facility] Nitrite Negative Negative [facility] Leukocyte Esterase Small (1+) (A) Negative [facility] Specimen Urine - Urine specimen obtained by clean catch procedure (specimen) Performing Organization Address [facility] Phone Number [address] [address] CLOSTRIDIUM DIFFICILE BY NAAT (PCR/LAMP) (08/27/2020 4:13 AM CDT) C difficile Not Detected Not Detected [facility] Toxin B Gene [facility] 027/NAP1/BI Presumptive Presumptive [facility] Negative Negative [facility] Specimen Feces - Stool specimen (specimen) Narrative Performed At This test was performed by polymerase chain reaction [facility] (PCR) on the GeneXpert instrument. Performing Organization Address City/[facility] Phone Number [address] [address] LAB[address] LAB ONLY-COMPLETE BLOOD COUNT WITH DIFFERENTIAL (08/26/2020 9:43 PM CDT) [facility] WBC 5.9 4.0 - 11.0 K/uL [address] RBC 4.09 3.80 - 5.[address] M/uL Hemoglobin 12.9 11.5 - 15.[address] g/dL Hematocrit 37.9 35.0 - 45.0 % [address] MCV 92.7 80.0 - 98.[address] MCH 31.5 25.5 - 34.[address] MCHC 34.0 31.5 - 36.[address] g/dL RDW-CV 18.2 (H) 11.5 - 15.5 % [address] RDW-SD 60.8 (H) 35.5 - 50.[address] Platelet Count 180 140 - 400 K/uL [address] MPV 10.0 8.5 - 12.[address] Seg Neut Absolute 3.7 1.8 - 8.0 K/uL [address] Lymphocytes Absolute 1.2 0.8 - 4.1 K/uL [place] [address] [facility] Monocytes Absolute 1.0 0.0 - 1.0 K/uL [address] Eosinophils Absolute 0.1 0.0 - 0.7 K/uL [place] [address] [facility] Basophil Absolute 0.0 0.0 - 0.2 K/uL [address] Immature Granulocyte 0.01 0.00 - 0.[address] Absolute K/uL Neutrophils Abs. 3,700 /uL [address] (Segs and Bands) Neutrophils Percent 61.7 % [address] Lymphocytes Percent 19.4 % [address] Monocytes Percent 17.4 % [address] Immature Granulocyte 0.2 % [address] Percent Eosinophils Percent 0.8 % [facility] Basophil Percent 0.5 % [address] Nucleated RBC 0 /[address] Specimen Blood - Blood specimen (specimen) Performing Organization Address [facility] Phone Number [place] [address] [facility] [address], [place] [address] MAGNESIUM (08/26/2020 9:43 PM CDT) Pathologist Sig [facility] Magnesium 1.7 (L) 1.8 - 2.4 mg/dL [address] Specimen Blood - Blood specimen (specimen) Performing Organization Address [facility] Phone Number [place] [address] [facility] [place] [phone] COMPREHENSIVE METABOLIC PANEL (08/26/2020 9:43 PM CDT) Pathologist Sig nature Glucose 120 (H) 70 - 100 mg/dL [address] BUN 45 (H) 6 - 22 mg/dL [address] Creatinine 2.06 (H) 0.60 - 1.[address] mg/dL BUN/Creatinine Ratio 21.8 10.0 - 25.[address] Sodium 131 (L) 135 - 145 meq/L [address] Potassium 3.2 (L) 3.5 - 5.3 meq/L [address] Chloride 103 99 - 110 meq/L [address] CO2 13 (L) 20 - 29 meq/L [address] Anion Gap with K 18 6 - 20 meq/L [address] Calcium 8.9 8.5 - 10.[address] mg/dL Protein Total 7.6 6.0 - 8.2 g/dL [address] Albumin 4.2 3.5 - 5.0 g/dL [address] Alkaline Phosphatase 134 30 - 150 U/L [address] AST - SGOT 25 0 - 35 U/L [address] ALT - SGPT 39 0 - 55 U/L [address] Bilirubin Total 0.6 0.2 - 1.2 mg/dL [address] Age 80 Years [place] [address] CLINIC eGFR Non- 23 (L) >=[address] Bahraini mL/min/1.73m2 eGFR 28 (L) >=[address] mL/min/1.73m2 Specimen Blood - Blood specimen (specimen) Performing Organization Address City/State/Zipcode Phone Number [address] [facility] [place] [address] documented in this encounter Visit Diagnoses Diagnosis PANDA (acute kidney injury) (HCC) - Primar y Acute kidney failure, unspecified Dehydration Nausea vomiting and diarrhea Nausea with vomiting Chemotherapy adverse reaction, initial e ncounter Intractable vomiting with nausea documented in this encounter Discharge Diagnoses Not on filedocumented in this encounter Administered Medications Medication Order MAR Action Action Date Dose Rate Site acetaminophen (TYLENOL) tablet Given 08/31/2020 9:55 AM CDT 650 mg 650 mg 650 mg, Oral, Every four hours prn, Starting 08/26/20 at 2353, Until Discontinued, mild pain, Use FIRST for mild pain. If inadequate response in 60 minutes, may proceed to next choice option or if no other options, contact provider. Adult patients: Total dose of acetaminophen from all acetaminophen containing products should not exceed 4 grams (4000 mg) per day. Pediatric Patients 0 - 3 months: Maximum of 60 mg/kg/24 hours of acetaminophen. Pediatric Patients older than 3 months: Maximum of 75 mg/kg/24 hours of acetaminophen (Never exceeding 4 grams/day)., Given 08/30/2020 8:22 PM CDT 650 mg Given 08/30/2020 8:02 AM CDT 650 mg heparin (porcine) injection solution Given 08/31/2020 6:00 AM C DT 5,000 Units 5,000 Units 5,000 Units, Subcutaneous, Every eight hours, First dose on Thu08/27/20 at 0600, Until Discontinued, 1 mL Given 08/30/2020 9:22 PM CDT 5,000 Units Given 08/30/2020 1:27 PM CDT 5,000 Units hEParin 100 units/ mL injection for Given 08/30/2020 8:04 AM CD T 500 Units heplock FLUSH 500 Units, IV, Daily, First dose on Thu08/27/20 at 0900, Until Discontinued, 5 mL, Flush PORT with 20 mL sodium chloride 0.9% followed by 500 units (100 units/mL) heparin monthly when not accessed Heparin flush is for ports only., Given 08/29/2020 10:03 AM CDT 500 Units hEParin 100 units/ mL injection for hepl ock FLUSH 500 Units, IV, As often as necessary prn, Starting 08/27/20 at 0207, Until Discontinued, other (Specify), port main tanence, 5 mL, Flush PORT with 20 mL sodium chloride 0.9% followed by 500 units (100 units/mL) heparin after each use. Heparin flush is for ports only., influenza immunization reminder 1 each, Does not apply, Immunization phyllis or to discharge, First dose on Thu08/27/20 at 0900, Until Discontinued, This patien t is eligible for the influenza vaccine. Administer the vaccine as soon as possib le. Document consent on the Influenza MAR order. If the patient is in the ICU, ad cancer program coordinator the vaccine as soon as patient is eligible for floor transfer. RN to disc ontinue the reminder order AFTER vaccine administration., loperamide (IMODIUM) capsule 2 mg Given 08/31/2020 10:28 AM CDT 2 mg 2 mg, Oral, Every four hours prn, Starting 08/27/20 at 1005, Until Discontinued, diarrhea, give 4 mg after first loose stool, 2 mg after each subsequent loose stool, Recommended maximum for children greater than 12 years and adults: 16 mg in 24 hours., Given 08/31/2020 9:51 AM CDT 2 mg Given 08/30/2020 1:31 PM CDT 2 mg omeprazole (priLOSEC) capsule 20 mg Given 08/31/2020 6:00 AM CDT 20 mg 20 mg, Oral, DAILY, First dose on Thu08/27/20 at 0700, Until Discontinued, Swallow cap whole. Do not crush, chew or open., Given 08/30/2020 6:16 AM CDT 20 mg Given 08/29/2020 5:56 AM CDT 20 mg ondansetron (ZOFRAN ODT) dispersible tablet 8 Given 6:46 AM CDT 8 mg mg 8 mg, Oral, Every eight hours prn, Starting Thu08/26/20 at 2350, Until Discontinued, nausea, For partial dose (other than a full tablet), split tablet (wearing gloves) just prior to administration. Gently remove from package by peeling open immediately prior to administration. DO NOT push tablet through package. Once dose is placed in mouth it will dissolve quickly., Given 08/30/2020 4:19 AM CDT 8 mg Given 08/28/2020 4:16 PM CDT 8 mg ondansetron (ZOFRAN) injection solution 4 mg Given 08/30/2020 1:29 PM CDT 4 mg 4 mg, IV, Four times a day prn, Starting 08/26/20 at 2353, Until Discontinued, nausea, vomiting, 2 mL, Use SECOND for nausea / vomiting. If ineffective after 30 minutes and ondansetron ODT used, call physician for alternative. If preference is to further dilute for IV administration: First draw up patient-specific dose, then dilute to 10 mL with 0.9% sodium chloride., Given 08/29/2020 1:44 PM CDT 4 mg Given 08/28/2020 4:27 PM CDT 4 mg prochlorperazine (COMPAZINE) tablet 10 m g Given 08/30/2020 5:20 PM CDT 10 mg 10 mg, Oral, Four times a day prn, Starting 08/26/20 at 2350, Until Discontinued, nausea, vomiting, Use THIRD for nausea, Given 08/30/2020 8:12 AM CDT 10 mg Given 08/29/2020 6:44 PM CDT 10 mg sodium chloride 0.9% flush (adult) 10 mL Given 08/30/2020 8:23 PM CDT 10 mL 10 mL, IV, Two times a day and prn, First dose on Thu08/27/20 at 0900, Until Discontinued, 10 mL, Flush IV line as scheduled and as often as necessary before and after meds., Given 08/29/2020 9:09 PM CDT 10 mL Given 08/28/2020 8:49 PM CDT 10 mL sodium chloride 0.9% prefilled 10 mL syringe Given 8:05 AM CDT 20 mL (Materials Management Item) 20 mL 20 mL, IV, Daily, First dose on Thu08/27/20 at 0900, Until Discontinued, 20 mL, Flush PORT with 20 mL sodium chloride 0.9% followed by 500 units (100 units/mL) heparin monthly when not accessed, Given 08/29/2020 10:04 AM CDT 20 mL sodium chloride 0.9% prefilled 10 mL syr salas (Materials Management Item) 20 mL 20 mL, IV, As often as necessary prn, Starting 08/13 at 0207, Until Discontinued, other (Specify), [place], 20 mL , Flush PORT with 20 mL sodium chloride 0.9% followed by 500 uni ts (100 units/mL) heparin after each use., Medication Order MAR Action Action Date Dose Rate Site diphenoxylate-atropine Given 08/29/2020 1:44 PM CDT 1 tablet (LOMOTIL) 2.5-0.025 mg tablet 1 tablet 1 tablet, Oral, Four times a day, First dose (after last modification) on Thu08/27/20 at 1005, Until Discontinued, Tablet may be crushed, Given 08/29/2020 10:02 AM CDT 1 tablet Given 08/28/2020 8:57 PM CDT 1 tablet metoprolol succinate (TOPROL XL) SR Given 08/29/2020 10:02 AM CD T 12.5 mg half-tablet (24 hr) 12.5 mg 12.5 mg, Oral, DAILY, First dose (after last modification) on Thu08/27/20 at 0900, Until Discontinued, Tablet may be broken in half, but should not be crushed or chewed. Hold for SBP less than 100 Hold for HR less than 60, Given 08/28/2020 8:57 AM CDT 12.5 mg potassium chloride 40 mEq/100 mL sterile Given 08/27/2020 11:39 AM CDT 40 mEq water IV piggyback (CENTRAL LINE) 40 mEq, IV, One time, 1 dose, Thu08/27/20 at 1100, 100 mL, Must be administered through a central line only. Do not add lidocaine to the bag., sodium chloride 0.9% IV solution Rate Change 08/26/2020 11:25 PM CDT 200 mL/hr IV, at 200 mL/hr, Continuous, Starting [place] 08/26/20 at 2225, Until Thu08/26/20 at 2354, 1,000 mL New Bag 08/26/2020 9:33 PM CDT 150 mL/hr sodium chloride 0.9% IV solution New Bag 08/28/2020 4:14 PM CDT 100 mL/hr IV, at 100 mL/hr, Continuous, Starting 08/27/21 at 0030, Until 08/28/20 at 1748, 1,000 mL New Bag 08/28/2020 6:13 AM CDT 100 mL/hr New Bag 08/27/2020 8:22 PM CDT 100 mL/hr documented in this encounter
[2020-09-04] MEDS: Loperamide 2 MG Cap PO PRN ×4 (01:22→22:03)
[2020-09-04] MEDS: Ondansetron 8 MG Tab.DIS PO PRN ×2 (06:08→14:10)
[2020-09-04] MEDS: Pantoprazole 40 MG Tab.CR PO SCH (06:08)
[2020-09-04] MEDS: Polyvinyl Alcohol 1.4% Ophth Soln 15 ML Bottle EYEBOTH SCH ×2 (08:49→20:11)
[2020-09-04] MEDS ORDERED: Calcium Carbonate 500 MG Tab.Chew PO PRN (13:28)
[2020-09-04] MEDS ORDERED: Psyllium Husk Powder Sugar Free 5.85 GM Packet PO SCH (13:30)
[2020-09-04] MEDS: Ketotifen 0.025% Ophth Soln 5 ML Bottle EYERT SCH ×2 (13:43→20:10)
[2020-09-04] MEDS ORDERED: Saccharomyces Boulardii (Probiotic) 250 MG Cap PO SCH (15:00)
[2020-09-04] MEDS: Fluticasone Propionate Nasal Spray 16 GM Bottle NASBOTH SCH (15:19)
[2020-09-05] MEDS: Loperamide 2 MG Cap PO PRN ×5 (00:32→23:06)
[2020-09-05] MEDS: Ketotifen 0.025% Ophth Soln 5 ML Bottle EYERT SCH ×2 (08:53→20:01)
[2020-09-05] MEDS: Polyvinyl Alcohol 1.4% Ophth Soln 15 ML Bottle EYEBOTH SCH ×2 (08:55→20:01)
[2020-09-05] MEDS ORDERED: Psyllium 0.52 GM Cap PO SCH (09:00)
[2020-09-05] MEDS: Ondansetron 8 MG Tab.DIS PO PRN ×2 (09:02→20:00)
[2020-09-05] MEDS: Calcium Carbonate 500 MG Tab.Chew PO SCH ×3 (09:03→17:16)
[2020-09-05] MEDS: Fluticasone Propionate Nasal Spray 16 GM Bottle NASBOTH SCH (09:05)
[2020-09-05] MEDS: Saccharomyces Boulardii (Probiotic) 250 MG Cap PO SCH (09:09)
[2020-09-05] MEDS: Psyllium 0.52 GM Cap PO SCH (17:16)
[2020-09-06] MEDS: Calcium Carbonate 500 MG Tab.Chew PO SCH ×3 (07:56→17:34)
[2020-09-06] MEDS: Polyvinyl Alcohol 1.4% Ophth Soln 15 ML Bottle EYEBOTH SCH ×2 (08:00→20:46)
[2020-09-06] MEDS: Ketotifen 0.025% Ophth Soln 5 ML Bottle EYERT SCH ×2 (08:01→20:46)
[2020-09-06] MEDS: Fluticasone Propionate Nasal Spray 16 GM Bottle NASBOTH SCH (08:04)
[2020-09-06] MEDS: Saccharomyces Boulardii (Probiotic) 250 MG Cap PO SCH (08:06)
[2020-09-06] MEDS: PROBIOTIC PO SCH (08:20)
[2020-09-06] MEDS: Lactated Ringers 1,000 ML IV SCH (09:32)
--- NOTE | 2020-09-06 10:55 | PCM.PN ---
- General Info Date of Service: 09/06/20 Subjective Update: Karlie is down 10 lbs since admission, she states the Tums do help with her stomach and she is sporadically taking the antiemetics. States she is fine when she star ts to eat but then gets "gaggy" half way through then loses her appetite. She reported to therapist that she feels like it takes all her focus to eat and when she gets frequent interruptions then she loses her appetite. She did not have any bowel movements during the day yesterday but had 3 diarrhea stools overnight. Feels pretty weak this morning. No pain, no anxiety. Functional Status: Reports: Pain Controlled - Patient Data Vitals - Most Recent: Last Vital Signs Temp 97.2 F 09/05/20 07:37 Pulse 104 H 09/05/20 11:16 Resp 16 09/05/20 07:37 BP 131/72 09/05/20 07:37 Pulse Ox 98 09/05/20 12:00 Weight - Most Recent: 115 lb 1 oz Lab Results Last 24 Hours: Laboratory Results - last 24 hr 09/06/20 Range/Units 08:45 Sodium 133 L (135-145) mmol/L Potassium 3.2 L (3.5-5.3) mmol/L Chloride 98 L (100-110) mmol/L Carbon Dioxide 18 L (21-32) mmol/L BUN 39 H (7-18) mg/dL Creatinine 1.5 H (0.55-1.02) mg/dL Est Cr Clr Drug Dosing 22.87 mL/min Estimated GFR (MDRD) 33 L (>60) BUN/Creatinine Ratio 26.0 H (9-20) Glucose 119 H (80-116) mg/dL Calcium 8.6 (8.6-10.2) mg/dL Med Orders - Current: Current Medications Acetaminophen (Acetaminophen 650 Mg Tab.Er) 650 mg PO BID PRN PRN Reason: Pain Last Admin: 09/03/20 16:55 Dose: 650 mg Documented by: Albuterol (Albuterol 8 Gm Inhaler) 0 gm INH Q6H PRN PRN Reason: Dyspnea Artificial Tears (Polyvinyl Alcohol 1.4% Ophth Soln 15 Ml Bottle) 0 ml EYEBOTH BID [place] Last Admin: 09/06/20 08:00 Dose: 1 drop Documented by: Calcium Carbonate/Glycine (Calcium Carbonate 500 Mg Tab.Chew) 500 mg PO TIDMEALS [facility] Last Admin: 09/06/20 07:56 Dose: 500 mg Documented by: Calcium Carbonate/Glycine (Calcium Carbonate 500 Mg Tab.Chew) 500 mg PO Q2H PRN PRN Reason: Indigestion Fluticasone Propionate (Fluticasone Propionate Nasal [place] 16 Gm Bottle) 0 gm NASBOTH DAILY [facility] Last Admin: 09/06/20 08:04 Dose: 1 spray Documented by: Lactated Ringer's (Ringers, Lactated) 1,000 mls @ 100 mls/hr IV ASDIRECTED [facility] Last Admin: 09/06/20 09:32 Dose: 100 mls/hr Documented by: Ketotifen Fumarate (Ketotifen 0.025% Ophth Soln 5 Ml Bottle) 0 ml EYERT BID [facility] Last Admin: 09/06/20 08:01 Dose: 1 drop Documented by: Loperamide HCl (Loperamide 2 Mg Cap) 2 mg PO ASDIRECTED PRN PRN Reason: Diarrhea Last Admin: 09/05/20 23:06 Dose: 2 mg Documented by: Methyl Salicylate (Menthol/Methyl Salicylate 85 Gm Tube) 0 gm TOP QID PRN PRN Reason: PAIN Last Admin: 09/03/20 05:36 Dose: 1 applic Documented by: Once Daily Ultra (Probiotic) 1 each PO DAILY [facility] Last Admin: 09/06/20 08:20 Dose: 1 each Documented by: Ondansetron HCl (Ondansetron 8 Mg Tab.Dis) 8 mg PO Q8H PRN PRN Reason: Nausea Last Admin: 09/05/20 20:00 Dose: 8 mg Documented by: Prochlorperazine Maleate (Prochlorperazine 10 Mg Tab) 10 mg PO QID PRN PRN Reason: Nausea/Vomiting Last Admin: 09/03/20 16:55 Dose: 10 mg Documented by: Psyllium Hydrophilic Mucilloid (Psyllium 0.52 Gm Cap) 1.04 gm PO DAILY@1200 [facility] Last Admin: 09/05/20 17:16 Dose: Not Given Documented by: Saccharomyces Boulardii (Saccharomyces Boulardii (Probiotic) 250 Mg Cap) 250 mg PO DAILY [facility] Last Admin: 09/06/20 08:06 Dose: 250 mg Documented by: Simethicone (Simethicone 80 Mg Tab.Chew) 80 mg PO TIDMEALS [facility] Sodium Chloride (Sodium Chloride 0.9% 10 Ml Syringe) 10 ml FLUSH ASDIRECTED PRN PRN Reason: Keep Vein Open Discontinued Medications Pantoprazole Sodium (Pantoprazole 40 Mg Tab.Cr) 40 mg PO DAILY@0600 [facility] Last Admin: 09/04/20 06:08 Dose: 40 mg Documented by: Psyllium Husk (Psyllium Husk Powder Sugar Free 5.85 Gm Packet) 1 pkt PO DAILY [facility] Last Admin: 09/04/20 13:44 Dose: 1 pkt Documented by: Psyllium Hydrophilic Mucilloid (Psyllium 0.52 Gm Cap) 1.04 gm PO DAILY [facility] Last Admin: 09/05/20 09:09 Dose: Not Given Documented by: Saccharomyces Boulardii (Saccharomyces Boulardii (Probiotic) 250 Mg Cap) 250 mg PO TID [facility] Last Admin: 09/04/20 15:19 Dose: 250 mg Documented by: - Exam General: Alert, Oriented, Cooperative, No Acute Distress, Other (Cachetic, eyes sunken) Lungs: Clear to Auscultation, Normal Respiratory Effort Cardiovascular: Regular Rate, Irregular Rhythm GI/Abdominal Exam: Normal Bowel Sounds (to hyperactive BS x 4), Soft, Non- Tender, No Distention Extremities: No Pedal Edema - Patient Data Lab Results Last 24 hrs: Laboratory Results - last 24 hr 09/06/20 Range/Units 08:45 Sodium 133 L (135-145) mmol/L Potassium 3.2 L (3.5-5.3) mmol/L Chloride 98 L (100-110) mmol/L Carbon Dioxide 18 L (21-32) mmol/L BUN 39 H (7-18) mg/dL Creatinine 1.5 H (0.55-1.02) mg/dL Est Cr Clr Drug Dosing 22.87 mL/min Estimated GFR (MDRD) 33 L (>60) BUN/Creatinine Ratio 26.0 H (9-20) Glucose 119 H (80-116) mg/dL Calcium 8.6 (8.6-10.2) mg/dL Result Diagrams: 09/06/20 08:45 Sepsis Event Note - Evaluation Sepsis Screening Result: No Definite Risk - Problem List & Annotations (1) Weakness SNOMED Code(s): 93851359 Code(s): R53.1 - WEAKNESS Status: Acute Current Visit: Yes (2) Cancer of sigmoid Status: Acute Current Visit: Yes (3) Cancer of duodenum SNOMED Code(s): 559808384 Code(s): C17.0 - MALIGNANT NEOPLASM OF DUODENUM Status: Acute Current Visit: Yes (4) Chronic diarrhea SNOMED Code(s): 626072203 Code(s): K52.9 - NONINFECTIVE GASTROENTERITIS AND COLITIS, UNSPECIFIED Status: Chronic Current Visit: Yes (5) Palliative care status SNOMED Code(s): 102735387 Code(s): Z51.5 - ENCOUNTER FOR PALLIATIVE CARE Status: Acute Current Visit: Yes (6) Cancer cachexia SNOMED Code(s): 781743468 Code(s): R64 - CACHEXIA Status: Acute Current Visit: Yes - Problem List Review Problem List Initiated/Reviewed/Updated: Yes - My Orders Last 24 Hours: My Active Orders 09/05/20 12:00 Psyllium [Metamucil] 1.04 gm PO DAILY@1200 09/05/20 17:07 Calcium Carbonate [Tums] 500 mg PO Q2H PRN 09/06/20 08:16 Sodium Chloride 0.9% [Saline Flush] 10 ml FLUSH ASDIRECTED PRN Saline Lock Insert [OM.PC] Routine 09/06/20 08:30 Lactated Ringers [Ringers, Lactated] 1,000 ml IV ASDIRECTED 09/06/20 09:00 Non-Formulary Medication [NF Drug] 1 each PO DAILY 09/06/20 12:00 Simethicone 80 mg PO TIDMEALS - Plan Plan:: 1. Nausea/vomiting/indigestion: Tums with meals, and as needed. Compazine & Zofran as needed for nausea. Will put up sign not to interrupt patient during meals to help her intake. 2. Diarrhea: Has slowed with discontinuing Protonix, adding Florastor & probiotic that she takes at home. Dietary met with her on Thursday and removed dairy from her diet and will send her foods she likes that have more soluble fiber. Change Metamucil to capsules as she could not drink the powder down. 3. Dehydrated: Labs today: sodium, potassium, chloride, bicarb are slightly low, BUN & creatinine elevated. IV inserted and LR at 100 ml/hr. She states she wants to keep trying to get stronger. 4. Hospice/palliative care handouts were given on Thursday to family. They do want her to go home rather than [facility] now, they have not decided on hospice/comfort cares yet. Spiritual care sales operations manager & her parish etl consultant have been meeting with her.
[2020-09-06] MEDS: Simethicone 80 MG Tab.Chew PO SCH ×2 (11:49→17:34)
[2020-09-06] MEDS: Ondansetron 8 MG Tab.DIS PO PRN (11:53)
[2020-09-06] MEDS: Psyllium 0.52 GM Cap PO SCH (11:54)
[2020-09-06] MEDS: Dexamethasone 2 MG Tab PO SCH (12:59)
[2020-09-06] MEDS: Loperamide 2 MG Cap PO PRN ×5 (15:35→23:14)
[2020-09-06] MEDS ORDERED: Polyvinyl Alcohol 1.4% Ophth Soln 15 ML Bottle EYEBOTH PRN (15:54)
[2020-09-07] MEDS: Loperamide 2 MG Cap PO PRN ×4 (08:25→23:20)
[2020-09-07] MEDS: Ondansetron 4 MG Tab.DIS PO PRN ×2 (08:25→16:17)
[2020-09-07] MEDS: Ketotifen 0.025% Ophth Soln 5 ML Bottle EYERT SCH ×2 (08:27→20:17)
[2020-09-07] MEDS: Fluticasone Propionate Nasal Spray 16 GM Bottle NASBOTH SCH (08:27)
[2020-09-07] MEDS: Polyvinyl Alcohol 1.4% Ophth Soln 15 ML Bottle EYEBOTH SCH ×2 (08:27→20:18)
[2020-09-07] MEDS: Saccharomyces Boulardii (Probiotic) 250 MG Cap PO SCH (08:28)
[2020-09-07] MEDS: Simethicone 80 MG Tab.Chew PO SCH ×3 (08:28→18:05)
[2020-09-07] MEDS: Calcium Carbonate 500 MG Tab.Chew PO SCH (08:28)
[2020-09-07] MEDS: Dexamethasone 2 MG Tab PO SCH (08:29)
[2020-09-07] MEDS: PROBIOTIC PO SCH (08:38)
[2020-09-07] MEDS ORDERED: Lactated Ringers 1,000 ML IV SCH (09:00)
[2020-09-07] MEDS: Sodium Chloride 0.9% 10 ML Syringe FLUSH PRN ×2 (09:17→20:18)
[2020-09-07] MEDS: Lactated Ringers 1,000 ML IV SCH (09:19)
[2020-09-07] MEDS ORDERED: Potassium Chloride 10 MEQ Tab.ER PO SCH (09:30)
[2020-09-07] MEDS ORDERED: Potassium Chloride 100 ML IV ONE (09:45)
[2020-09-07] MEDS: Metoclopramide 5 MG Tab PO SCH (20:19)
[2020-09-07] MEDS: Calcium Carbonate 500 MG Tab.Chew PO PRN (22:04)
[2020-09-08] MEDS: Ondansetron 4 MG Tab.DIS PO PRN ×2 (01:20→14:00)
[2020-09-08] MEDS: Saccharomyces Boulardii (Probiotic) 250 MG Cap PO SCH (08:41)
[2020-09-08] MEDS: Polyethylene Glycol 3350 Powder 17 GM Packet PO SCH (08:41)
[2020-09-08] MEDS: Simethicone 80 MG Tab.Chew PO SCH ×3 (08:41→20:52)
[2020-09-08] MEDS: Metoclopramide 5 MG Tab PO SCH ×4 (08:41→20:53)
[2020-09-08] MEDS: Polyvinyl Alcohol 1.4% Ophth Soln 15 ML Bottle EYEBOTH SCH ×2 (08:47→21:02)
[2020-09-08] MEDS: Ketotifen 0.025% Ophth Soln 5 ML Bottle EYERT SCH ×2 (08:47→20:56)
[2020-09-08] MEDS: Fluticasone Propionate Nasal Spray 16 GM Bottle NASBOTH SCH (08:48)
[2020-09-08] MEDS: PROBIOTIC PO SCH (09:00)
[2020-09-08] MEDS: Dexamethasone 2 MG Tab PO SCH (12:01)
[2020-09-08] MEDS: Verapamil 120 MG Tab.ER PO SCH (12:01)
--- NOTE | 2020-09-08 13:55 | PN ---
DATE SEEN: 09/08/2020 HISTORY: Karlie is an 80-year-old woman admitted for comfort palliative care and symptom control for GI carcinoma and symptoms from chemotherapy. She has had extreme nausea, vomiting, diarrhea, general weakness, and decline in her condition. She decided yesterday, she is interested mostly in comfort measures and will talk to her family more closely about formal hospice. Karlie has had a poor night with poor sleep, watery diarrhea, and nausea. She is fatigued this morning and has an emesis bag at her bedside. PHYSICAL EXAMINATION: GENERAL: She is pale, thin but alert and oriented. Weight this morning is 120 pounds, up 5 pounds from 2 days ago. RESPIRATORY: Respirations are easy. HEART: Regular. ABDOMEN: Has hyperactive bowel sounds. EXTREMITIES: Show no edema at the ankles. LABORATORY DATA: Showed a potassium of 3.2 and creatinine of 1.5. She received IV potassium yesterday. ASSESSMENT: An 80-year-old woman with nausea, vomiting, weakness, and diarrhea post treatment for bowel cancer. PLAN: We will focus primarily on comfort care measures. We will add verapamil and bedtime amitriptyline for her diabetes and poor sleep. Can increase her Reglan to 5 mg t.i.d. and continue to provide comfort care measures. /[id number] JAYJAY/EVELIA
[2020-09-08] MEDS ORDERED: Amitriptyline 10 MG Tab PO SCH (21:00)
[2020-09-09] MEDS: Sodium Chloride 0.9% 10 ML Syringe FLUSH PRN (03:00)
[2020-09-09] MEDS: Polyvinyl Alcohol 1.4% Ophth Soln 15 ML Bottle EYEBOTH SCH ×2 (08:35→21:24)
[2020-09-09] MEDS: Ketotifen 0.025% Ophth Soln 5 ML Bottle EYERT SCH ×2 (08:49→21:24)
[2020-09-09] MEDS: Simethicone 80 MG Tab.Chew PO SCH (08:49)
[2020-09-09] MEDS: Verapamil 120 MG Tab.ER PO SCH (08:50)
[2020-09-09] MEDS: Polyethylene Glycol 3350 Powder 17 GM Packet PO SCH (08:50)
[2020-09-09] MEDS: Metoclopramide 5 MG Tab PO SCH (08:50)
[2020-09-09] MEDS: PROBIOTIC PO SCH (08:50)
[2020-09-09] MEDS: Dexamethasone 2 MG Tab PO SCH (08:50)
[2020-09-09] MEDS: Fluticasone Propionate Nasal Spray 16 GM Bottle NASBOTH SCH ×2 (08:50→14:00)
[2020-09-09] MEDS: Ondansetron 4 MG Tab.DIS PO PRN ×2 (13:10→21:57)
[2020-09-09] MEDS: LOPERAMIDE 1 MG/5 ML PO PRN (14:50)
[2020-09-10] MEDS: LOPERAMIDE 1 MG/5 ML PO PRN (03:43)
--- NOTE | 2020-09-10 08:28 | PN ---
DATE SEEN: 09/09/2020 HISTORY: Ms. Moreno is an 80-year-old woman in a swing bed for metastatic GI carcinoma. She has elected to undergo no further treatment. She has been having nausea and diarrhea that was persistent. Repeat C. diff was again negative yesterday. This morning, she feels slightly better with less nausea than yesterday. She is denying any significant pain. Respirations are easy. She is alert and oriented. Lungs are clear. Heart is regular. Abdomen has active bowel sounds and no significant tenderness. ASSESSMENT: Metastatic gastrointestinal cancer. PLAN: Comfort measures with p.r.n. medications only. She would like to discontinue any scheduled medications for nausea, diarrhea, etc. Continue comfort cares. Follow up p.r.n. /[id number] JAYJAY/EVELIA
[2020-09-10] MEDS: Fluticasone Propionate Nasal Spray 16 GM Bottle NASBOTH SCH (09:05)
[2020-09-10] MEDS: Ketotifen 0.025% Ophth Soln 5 ML Bottle EYERT SCH (09:05)
[2020-09-10] MEDS: Polyvinyl Alcohol 1.4% Ophth Soln 15 ML Bottle EYEBOTH SCH ×2 (09:06→20:19)
[2020-09-10] MEDS: PROBIOTIC PO SCH (09:17)
[2020-09-10] MEDS ORDERED: LOPERAMIDE 1 MG/5 ML PO PRN (09:33)
[2020-09-10] MEDS: LOPERAMIDE 1 MG/7.5 ML PO PRN ×2 (13:48→15:48)
[2020-09-10] MEDS: Ondansetron 4 MG Tab.DIS PO PRN (20:17)
[2020-09-11] MEDS: LOPERAMIDE 1 MG/7.5 ML PO PRN (05:20)
[2020-09-11] MEDS: Polyvinyl Alcohol 1.4% Ophth Soln 15 ML Bottle EYEBOTH SCH ×2 (09:48→21:41)
[2020-09-11] MEDS: Fluticasone Propionate Nasal Spray 16 GM Bottle NASBOTH SCH (09:49)
[2020-09-11] MEDS: PROBIOTIC PO SCH (09:50)
[2020-09-11] MEDS: Sodium Chloride 0.9% 10 ML Syringe FLUSH PRN (16:36)
[2020-09-12] MEDS: PROBIOTIC PO SCH (08:52)
[2020-09-12] MEDS: Fluticasone Propionate Nasal Spray 16 GM Bottle NASBOTH SCH (08:52)
[2020-09-12] MEDS: Polyvinyl Alcohol 1.4% Ophth Soln 15 ML Bottle EYEBOTH SCH ×2 (08:52→21:30)
[2020-09-12] MEDS: Menthol/Methyl Salicylate 85 GM Tube TOP PRN (22:00)
[2020-09-13] MEDS: Polyvinyl Alcohol 1.4% Ophth Soln 15 ML Bottle EYEBOTH SCH ×2 (08:19→21:00)
[2020-09-13] MEDS: PROBIOTIC PO SCH (08:19)
[2020-09-13] MEDS: Fluticasone Propionate Nasal Spray 16 GM Bottle NASBOTH SCH (08:19)
--- NOTE | 2020-09-13 12:31 | PN ---
DATE SEEN: 09/13/2020 HISTORY: Karlie is an 80-year-old woman with metastatic gastrointestinal cancer of 2 primaries. She was treated initially with chemotherapy at [facility] and was unable to tolerate this and has subsequently declined additional anticancer treatment and has now been changed to comfort measures. The patient is accepting p.r.n. medications but has declined routine medication, IV fluids, etc. Family is in close attendance and is aware of the patient's wishes and concur. Karlie is examined in her bed this morning. She is feeling comfortable. She denies pain, dyspnea, palpitations. No current nausea and no diarrhea overnight. Her oral intake has been very, very minimal with just one glass of orange juice per day, sips of water, and ice cubes. PHYSICAL EXAMINATION: GENERAL: She is pale, thin, but alert. Her voice is quite soft and quiet, and she is weak. LUNGS: Clear. HEART: Regular with a 3/6 systolic murmur. ABDOMEN: Has normal bowel sounds. Soft and nontender. EXTREMITIES: Show no edema. NEUROLOGIC: Reveals her mental status to be intact. Motor exam is symmetric at the hands and feet. ASSESSMENT: Metastatic gastrointestinal cancer, now on comfort measures. PLAN: We will continue her oral hydration as she tolerates and medications as needed. Family is spoken with today and is aware of her terminal diagnosis. They are considering move to [facility] suites next week. /[id number] JAYJAY/EVELIA
[2020-09-14] MEDS: Fluticasone Propionate Nasal Spray 16 GM Bottle NASBOTH SCH (08:44)
[2020-09-14] MEDS: Polyvinyl Alcohol 1.4% Ophth Soln 15 ML Bottle EYEBOTH SCH ×2 (08:44→21:04)
[2020-09-14] MEDS: PROBIOTIC PO SCH (11:31)
[2020-09-15] MEDS: Ondansetron 4 MG Tab.DIS PO PRN ×3 (00:22→23:47)
[2020-09-15] MEDS: Calcium Carbonate 500 MG Tab.Chew PO PRN (03:40)
[2020-09-15] MEDS: Fluticasone Propionate Nasal Spray 16 GM Bottle NASBOTH SCH (08:16)
[2020-09-15] MEDS: Polyvinyl Alcohol 1.4% Ophth Soln 15 ML Bottle EYEBOTH SCH ×2 (08:16→20:18)
[2020-09-15] MEDS: PROBIOTIC PO SCH (09:59)
[2020-09-16] MEDS: Ondansetron 4 MG Tab.DIS PO PRN ×4 (04:43→20:34)
[2020-09-16] MEDS: Menthol/Methyl Salicylate 85 GM Tube TOP PRN (07:45)
--- NOTE | 2020-09-16 08:42 | PCM.PN ---
- General Info Date of Service: 09/16/20 Admission Dx/Problem (Free Text): Patient states she is having some nausea but Zofran is helping that. She vomited 2 nights ago. She streaking fluids but not really eating. She says occasionally of some back pain but is pretty well controlled. No abdominal pain at this time. - Patient Data Vitals - Most Recent: Last Vital Signs Temp 97.5 F 09/15/20 07:40 Pulse 88 09/15/20 07:40 Resp 16 09/15/20 07:40 BP 142/82 H 09/15/20 07:40 Pulse Ox 96 09/15/20 07:40 Weight - Most Recent: 114 lb 4 oz Med Orders - Current: Current Medications Acetaminophen (Acetaminophen 650 Mg Tab.Er) 650 mg PO BID PRN PRN Reason: Pain Last Admin: 09/03/20 16:55 Dose: 650 mg Documented by: Artificial Tears (Polyvinyl Alcohol 1.4% Ophth Soln 15 Ml Bottle) 0 ml EYEBOTH BID [facility] Last Admin: 09/15/20 20:18 Dose: 1 drop Documented by: Artificial Tears (Polyvinyl Alcohol 1.4% Ophth Soln 15 Ml Bottle) 0 ml EYEBOTH Q2H PRN PRN Reason: DRY EYES Last Admin: 09/07/20 18:36 Dose: 1 drop Documented by: Calcium Carbonate/Glycine (Calcium Carbonate 500 Mg Tab.Chew) 500 mg PO Q2H PRN PRN Reason: Indigestion Last Admin: 09/15/20 03:40 Dose: 500 mg Documented by: Fluticasone Propionate (Fluticasone Propionate Nasal [place] 16 Gm Bottle) 0 gm NASBOTH DAILY [facility] Last Admin: 09/15/20 08:16 Dose: 1 spray Documented by: Loperamide HCl (Loperamide 1 Mg/7.5 Ml 7.5ml Ud Cup) 2 mg PO ASDIRECTED PRN PRN Reason: Diarrhea Last Admin: 09/11/20 05:20 Dose: 2 mg Documented by: Methyl Salicylate (Menthol/Methyl Salicylate 85 Gm Tube) 0 gm TOP QID PRN PRN Reason: PAIN Last Admin: 09/12/20 22:00 Dose: 1 applic Documented by: Once Daily Ultra (Probiotic) 1 each PO DAILY [facility] Last Admin: 09/15/20 09:59 Dose: Not Given Documented by: Ondansetron HCl (Ondansetron 4 Mg Tab.Dis) 4 mg PO Q4H PRN PRN Reason: Nausea Last Admin: 09/16/20 04:43 Dose: 4 mg Documented by: Sodium Chloride (Sodium Chloride 0.9% 10 Ml Syringe) 10 ml FLUSH ASDIRECTED PRN PRN Reason: Keep Vein Open Last Admin: 09/11/20 16:36 Dose: 10 ml Documented by: Discontinued Medications Albuterol (Albuterol 8 Gm Inhaler) 0 gm INH Q6H PRN PRN Reason: Dyspnea Amitriptyline HCl (Amitriptyline 10 Mg Tab) 10 mg PO BEDTIME [facility] Last Admin: 09/08/20 20:55 Dose: Not Given Documented by: Calcium Carbonate/Glycine (Calcium Carbonate 500 Mg Tab.Chew) 500 mg PO TIDMEALS [facility] Last Admin: 09/07/20 08:28 Dose: 500 mg Documented by: Dexamethasone (Dexamethasone 2 Mg Tab) 2 mg PO DAILY [facility] Last Admin: 09/07/20 08:29 Dose: 2 mg Documented by: Dexamethasone (Dexamethasone 2 Mg Tab) 2 mg PO DAILY [facility] Last Admin: 09/09/20 08:50 Dose: Not Given Documented by: Lactated Ringer's (Ringers, Lactated) 1,000 mls @ 100 mls/hr IV ASDIRECTED [facility] Stop: 09/07/20 19:18 Last Admin: 09/07/20 09:19 Dose: 100 mls/hr Documented by: Potassium Chloride (Kcl In Water 20 Meq/100 Ml) 100 mls @ 12 mls/hr IV ONETIME ONE Stop: 09/07/20 18:04 Last Admin: 09/07/20 10:56 Dose: 12 mls/hr Documented by: Ketotifen Fumarate (Ketotifen 0.025% Ophth Soln 5 Ml Bottle) 0 ml EYERT BID [facility] Last Admin: 09/10/20 09:05 Dose: 1 drop Documented by: Loperamide HCl (Loperamide 2 Mg Cap) 2 mg PO ASDIRECTED PRN PRN Reason: Diarrhea Last Admin: 09/07/20 23:20 Dose: 2 mg Documented by: Loperamide HCl (Loperamide 1 Mg/5 Ml Solution 120 Ml Bottle) 2 mg PO ASDIRECTED PRN PRN Reason: Diarrhea Last Admin: 09/10/20 03:43 Dose: 2 mg Documented by: Loperamide HCl (Loperamide 1 Mg/5 Ml Solution 120 Ml Bottle) 2 mg PO ASDIRECTED PRN PRN Reason: Diarrhea Metoclopramide HCl (Metoclopramide 5 Mg Tab) 5 mg PO BID [facility] Last Admin: 09/08/20 08:41 Dose: 5 mg Documented by: Metoclopramide HCl (Metoclopramide 5 Mg Tab) 5 mg PO TID [facility] Last Admin: 09/09/20 08:50 Dose: Not Given Documented by: Ondansetron HCl (Ondansetron 8 Mg Tab.Dis) 8 mg PO Q8H PRN PRN Reason: Nausea Last Admin: 09/06/20 11:53 Dose: 8 mg Documented by: Pantoprazole Sodium (Pantoprazole 40 Mg Tab.Cr) 40 mg PO DAILY@0600 [facility] Last Admin: 09/04/20 06:08 Dose: 40 mg Documented by: Polyethylene Glycol (Polyethylene Glycol 3350 Powder 17 Gm Packet) 17 gm PO DAILY [facility] Last Admin: 09/09/20 08:50 Dose: Not Given Documented by: Potassium Chloride (Potassium Chloride 10 Meq Tab.Er) 10 meq PO DAILY [facility] Last Admin: 09/07/20 09:00 Dose: Not Given Documented by: Prochlorperazine Maleate (Prochlorperazine 10 Mg Tab) 10 mg PO QID PRN PRN Reason: Nausea/Vomiting Last Admin: 09/03/20 16:55 Dose: 10 mg Documented by: Psyllium Husk (Psyllium Husk Powder Sugar Free 5.85 Gm Packet) 1 pkt PO DAILY [facility] Last Admin: 09/04/20 13:44 Dose: 1 pkt Documented by: Psyllium Hydrophilic Mucilloid (Psyllium 0.52 Gm Cap) 1.04 gm PO DAILY [facility] Last Admin: 09/05/20 09:09 Dose: Not Given Documented by: Psyllium Hydrophilic Mucilloid (Psyllium 0.52 Gm Cap) 1.04 gm PO DAILY@1200 [facility] Last Admin: 09/06/20 11:54 Dose: Not Given Documented by: Saccharomyces Boulardii (Saccharomyces Boulardii (Probiotic) 250 Mg Cap) 250 mg PO TID [facility] Last Admin: 09/04/20 15:19 Dose: 250 mg Documented by: Saccharomyces Boulardii (Saccharomyces Boulardii (Probiotic) 250 Mg Cap) 250 mg PO DAILY [facility] Last Admin: 09/08/20 08:41 Dose: 250 mg Documented by: Simethicone (Simethicone 80 Mg Tab.Chew) 80 mg PO TIDMEALS [facility] Last Admin: 09/09/20 08:49 Dose: Not Given Documented by: Verapamil HCl (Verapamil 120 Mg Tab.Er) 120 mg PO DAILY [facility] Last Admin: 09/09/20 08:50 Dose: Not Given Documented by: - Exam General: Alert, Oriented, Cooperative Lungs: Clear to Auscultation, Normal Respiratory Effort, Rhonchi Cardiovascular: Regular Rate, No Murmurs GI/Abdominal Exam: Normal Bowel Sounds, Soft, Non-Tender, No Distention - Patient Data Result Diagrams: 09/06/20 08:45 Sepsis Event Note - Evaluation Sepsis Screening Result: No Definite Risk - Problem List & Annotations (1) Need for comfort care SNOMED Code(s): 633466073, 062632813 Code(s): [id number] - Status: Acute Current Visit: Yes (2) Cancer cachexia SNOMED Code(s): 171736394 Code(s): R64 - CACHEXIA Status: Acute Current Visit: Yes (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 Continue current care. 2. Plan is to transfer either to [facility] or to [facility] within the next week if possible. And she will go on hospice at that time. 3. Family is concerned that mady stuart can take care of her. Social work hopefully will discuss this with family tomorrow.
[2020-09-16] MEDS: Acetaminophen 650 MG Tab.ER PO PRN (08:58)
[2020-09-16] MEDS: Polyvinyl Alcohol 1.4% Ophth Soln 15 ML Bottle EYEBOTH SCH ×2 (09:00→20:35)
[2020-09-16] MEDS: Fluticasone Propionate Nasal Spray 16 GM Bottle NASBOTH SCH (09:00)
[2020-09-16] MEDS: PROBIOTIC PO SCH (09:03)
[2020-09-17] MEDS: Ondansetron 4 MG Tab.DIS PO PRN ×4 (03:17→23:11)
[2020-09-17] MEDS: Fluticasone Propionate Nasal Spray 16 GM Bottle NASBOTH SCH (08:25)
[2020-09-17] MEDS: Polyvinyl Alcohol 1.4% Ophth Soln 15 ML Bottle EYEBOTH SCH ×2 (08:25→21:40)
[2020-09-17] MEDS: Menthol/Methyl Salicylate 85 GM Tube TOP PRN (08:56)
[2020-09-17] MEDS: PROBIOTIC PO SCH (09:45)
[2020-09-18] MEDS: Ondansetron 4 MG Tab.DIS PO PRN ×5 (04:20→23:47)
[2020-09-18] MEDS: Polyvinyl Alcohol 1.4% Ophth Soln 15 ML Bottle EYEBOTH SCH ×2 (08:34→23:50)
[2020-09-18] MEDS: Fluticasone Propionate Nasal Spray 16 GM Bottle NASBOTH SCH (08:35)
[2020-09-18] MEDS: PROBIOTIC PO SCH (08:35)
[2020-09-18] MEDS: Menthol/Methyl Salicylate 85 GM Tube TOP PRN (08:37)
--- NOTE | 2020-09-18 15:47 | PCM.SN.2 ---
- Free Text/Narrative Note: He shouldn't has a history of depression in 2016. This was related to help problems with her and eventually his passing away. Patient does not exhibit any depression at this time is not a medications for it. Depression is in remission.
[2020-09-19] MEDS: Ondansetron 4 MG Tab.DIS PO PRN ×2 (03:58→10:03)
--- NOTE | 2020-09-19 07:25 | PCM.DCSUM1 ---
Discharge Summary - Hospital Course Free Text/Narrative:: Hospital course-patient was transferred here because of lethargy not eating and drinking nausea and diarrhea. She has a colon cancer. She decided she didn't want anything done but comfort measures. So the diarrhea is controlled with Imodium and patient drank a little bit and use Zofran for nausea. Patient did well and was happy and no depression seen. She wanted to be on hospice. She'll be transferred to [facility] on hospice. Brief History: Karlie presents for swing bed admission for rehab therapy services from [facility]. She was admitted there for nausea, vomiting, acute kidney injury and diarrhea secondary to chemotherapy on 08/17. She had been on Lomotil for persistent diarrhea, once that was discontinued in hospital her vomiting stopped. She still gets nauseous prior to meals and her medications. Her m etoprolol was discontinued due to hypotension. 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 Small bruise on lateral right knee. Does not feel it is giving way or unstable. Denies any sinus symptoms, sore throat, shortness of breath, chest pain, cough, change in bladder habits. She does have dry mouth but no oral sores like when she had chemo therapy. Her daughter Fatmata stated her port was de-accessed last night, they put in peripheral IV which was discontinued this morning. Met with palliative care team yesterday, discussed going on hospice vs rehab for her weakness, Karlie and her family decided to try short term rehab then transfer to [facility] on discharge with palliative care to start. She is a DNR/DNI. Diagnosis: Stroke: No - Discharge Data Discharge Date: 09/19/20 Discharge Disposition: DC/Tfer to [facility] Condition: Poor - Referral to Home Health Primary Care Physician: Leander Lima MD - Discharge Diagnosis/Problem(s) (1) Need for comfort care SNOMED Code(s): 021938930, 857105580 ICD Code: [id number] - Status: Acute Current Visit: Yes (2) Cancer cachexia SNOMED Code(s): 205337588 ICD Code: R64 - CACHEXIA Status: Acute Current Visit: Yes (3) Cancer of duodenum SNOMED Code(s): 883194194 ICD Code: C17.0 - MALIGNANT NEOPLASM OF DUODENUM Status: Acute Current Visit: Yes (4) Cancer of sigmoid Status: Acute Current Visit: Yes (5) Palliative care status SNOMED Code(s): 926962617 ICD Code: Z51.5 - ENCOUNTER FOR PALLIATIVE CARE Status: Acute Current Visit: Yes (6) Weakness SNOMED Code(s): 22080658 ICD Code: R53.1 - WEAKNESS Status: Acute Current Visit: Yes - Patient Instructions Diet: Regular Diet as Tolerated Activity: As Tolerated Driving: Do Not Drive Showering/Bathing: May Shower Other/Special Instructions: 1. Transfer to [facility] on hosp ice. 2. see Hospice orders. - Discharge Plan Prescriptions/Med Rec: Polyvinyl Alcohol [LiquiTears 1.4% Ophth Soln] 0 ml EYEBOTH BID #0 bottle Carboxymethylcellulose Sodium [Thera Tears] 1 drop EYEBOTH BID #0 Home Medications: Home Meds Carboxymethylcellulose Sodium [Thera Tears] 1 drop EYEBOTH BID #0 09/19/20 [Rx] Polyvinyl Alcohol [LiquiTears 1.4% Ophth Soln] 0 ml EYEBOTH BID #0 bottle 09/19/20 [Rx] Patient Handouts: Weakness, [id number], Fall Prevention in Hospitals, Adult, Venous Thromboembolism Prevention Forms: Take Home DC Nutrition Plan - Discharge Summary/Plan Comment DC Time >30 min.: No - Patient Data Vitals - Most Recent: Last Vital Signs Temp 97.5 F 09/18/20 09:00 Pulse 80 09/18/20 09:00 Resp 15 09/18/20 09:00 BP 128/78 09/18/20 09:00 Pulse Ox 97 09/18/20 09:00 Weight - Most Recent: 114 lb 4 oz Lab Results - Last 24 hrs: Laboratory Results - last 24 hr 09/19/20 Range/Units 04:05 SARS-CoV-2 RNA (DAVID) Negative (NEGATIVE) Med Orders - Current: Current Medications Acetaminophen (Acetaminophen 650 Mg Tab.Er) 650 mg PO BID PRN PRN Reason: Pain Last Admin: 09/16/20 08:58 Dose: 650 mg Documented by: Artificial Tears (Polyvinyl Alcohol 1.4% Ophth Soln 15 Ml Bottle) 0 ml EYEBOTH BID [facility] Last Admin: 09/18/20 23:50 Dose: 1 drop Documented by: Artificial Tears (Polyvinyl Alcohol 1.4% Ophth Soln 15 Ml Bottle) 0 ml EYEBOTH Q2H PRN PRN Reason: DRY EYES Last Admin: 09/07/20 18:36 Dose: 1 drop Documented by: Calcium Carbonate/Glycine (Calcium Carbonate 500 Mg Tab.Chew) 500 mg PO Q2H PRN PRN Reason: Indigestion Last Admin: 09/15/20 03:40 Dose: 500 mg Documented by: Fluticasone Propionate (Fluticasone Propionate Nasal [place] 16 Gm Bottle) 0 gm NASBOTH DAILY [facility] Last Admin: 09/18/20 08:35 Dose: 1 spray Documented by: Loperamide HCl (Loperamide 1 Mg/7.5 Ml 7.5ml Ud Cup) 2 mg PO ASDIRECTED PRN PRN Reason: Diarrhea Last Admin: 09/11/20 05:20 Dose: 2 mg Documented by: Methyl Salicylate (Menthol/Methyl Salicylate 85 Gm Tube) 0 gm TOP QID PRN PRN Reason: PAIN Last Admin: 09/18/20 08:37 Dose: 1 applic Documented by: Once Daily Ultra (Probiotic) 1 each PO DAILY [facility] Last Admin: 09/18/20 08:35 Dose: Not Given Documented by: Ondansetron HCl (Ondansetron 4 Mg Tab.Dis) 4 mg PO Q4H PRN PRN Reason: Nausea Last Admin: 09/19/20 03:58 Dose: 4 mg Documented by: Discontinued Medications Albuterol (Albuterol 8 Gm Inhaler) 0 gm INH Q6H PRN PRN Reason: Dyspnea Amitriptyline HCl (Amitriptyline 10 Mg Tab) 10 mg PO BEDTIME [facility] Last Admin: 09/08/20 20:55 Dose: Not Given Documented by: Calcium Carbonate/Glycine (Calcium Carbonate 500 Mg Tab.Chew) 500 mg PO TIDMEALS [facility] Last Admin: 09/07/20 08:28 Dose: 500 mg Documented by: Dexamethasone (Dexamethasone 2 Mg Tab) 2 mg PO DAILY [facility] Last Admin: 09/07/20 08:29 Dose: 2 mg Documented by: Dexamethasone (Dexamethasone 2 Mg Tab) 2 mg PO DAILY [facility] Last Admin: 09/09/20 08:50 Dose: Not Given Documented by: Lactated Ringer's (Ringers, Lactated) 1,000 mls @ 100 mls/hr IV ASDIRECTED [facility] Stop: 09/07/20 19:18 Last Admin: 09/07/20 09:19 Dose: 100 mls/hr Documented by: Potassium Chloride (Kcl In Water 20 Meq/100 Ml) 100 mls @ 12 mls/hr IV ONETIME ONE Stop: 09/07/20 18:04 Last Admin: 09/07/20 10:56 Dose: 12 mls/hr Documented by: Ketotifen Fumarate (Ketotifen 0.025% Ophth Soln 5 Ml Bottle) 0 ml EYERT BID [facility] Last Admin: 09/10/20 09:05 Dose: 1 drop Documented by: Loperamide HCl (Loperamide 2 Mg Cap) 2 mg PO ASDIRECTED PRN PRN Reason: Diarrhea Last Admin: 09/07/20 23:20 Dose: 2 mg Documented by: Loperamide HCl (Loperamide 1 Mg/5 Ml Solution 120 Ml Bottle) 2 mg PO ASDIRECTED PRN PRN Reason: Diarrhea Last Admin: 09/10/20 03:43 Dose: 2 mg Documented by: Loperamide HCl (Loperamide 1 Mg/5 Ml Solution 120 Ml Bottle) 2 mg PO ASDIRECTED PRN PRN Reason: Diarrhea Metoclopramide HCl (Metoclopramide 5 Mg Tab) 5 mg PO BID [facility] Last Admin: 09/08/20 08:41 Dose: 5 mg Documented by: Metoclopramide HCl (Metoclopramide 5 Mg Tab) 5 mg PO TID [facility] Last Admin: 09/09/20 08:50 Dose: Not Given Documented by: Ondansetron HCl (Ondansetron 8 Mg Tab.Dis) 8 mg PO Q8H PRN PRN Reason: Nausea Last Admin: 09/06/20 11:53 Dose: 8 mg Documented by: Pantoprazole Sodium (Pantoprazole 40 Mg Tab.Cr) 40 mg PO DAILY@0600 [facility] Last Admin: 09/04/20 06:08 Dose: 40 mg Documented by: Polyethylene Glycol (Polyethylene Glycol 3350 Powder 17 Gm Packet) 17 gm PO DAILY [facility] Last Admin: 09/09/20 08:50 Dose: Not Given Documented by: Potassium Chloride (Potassium Chloride 10 Meq Tab.Er) 10 meq PO DAILY [facility] Last Admin: 09/07/20 09:00 Dose: Not Given Documented by: Prochlorperazine Maleate (Prochlorperazine 10 Mg Tab) 10 mg PO QID PRN PRN Reason: Nausea/Vomiting Last Admin: 09/03/20 16:55 Dose: 10 mg Documented by: Psyllium Husk (Psyllium Husk Powder Sugar Free 5.85 Gm Packet) 1 pkt PO DAILY [facility] Last Admin: 09/04/20 13:44 Dose: 1 pkt Documented by: Psyllium Hydrophilic Mucilloid (Psyllium 0.52 Gm Cap) 1.04 gm PO DAILY [facility] Last Admin: 09/05/20 09:09 Dose: Not Given Documented by: Psyllium Hydrophilic Mucilloid (Psyllium 0.52 Gm Cap) 1.04 gm PO DAILY@1200 [facility] Last Admin: 09/06/20 11:54 Dose: Not Given Documented by: Saccharomyces Boulardii (Saccharomyces Boulardii (Probiotic) 250 Mg Cap) 250 mg PO TID [facility] Last Admin: 09/04/20 15:19 Dose: 250 mg Documented by: Saccharomyces Boulardii (Saccharomyces Boulardii (Probiotic) 250 Mg Cap) 250 mg PO DAILY [facility] Last Admin: 09/08/20 08:41 Dose: 250 mg Documented by: Simethicone (Simethicone 80 Mg Tab.Chew) 80 mg PO TIDMEALS [facility] Last Admin: 09/09/20 08:49 Dose: Not Given Documented by: Sodium Chloride (Sodium Chloride 0.9% 10 Ml Syringe) 10 ml FLUSH ASDIRECTED PRN PRN Reason: Keep Vein Open Last Admin: 09/11/20 16:36 Dose: 10 ml Documented by: Verapamil HCl (Verapamil 120 Mg Tab.Er) 120 mg PO DAILY [facility] Last Admin: 09/09/20 08:50 Dose: Not Given Documented by:
[2020-09-19] MEDS: Fluticasone Propionate Nasal Spray 16 GM Bottle NASBOTH SCH (09:50)
[2020-09-19] MEDS: Polyvinyl Alcohol 1.4% Ophth Soln 15 ML Bottle EYEBOTH SCH (09:50)
[2020-09-19] MEDS: PROBIOTIC PO SCH (10:05)
[2020-09-19 13:43] VITALS: BP 124/77; PULSE 78
== END 2020-09-19 10:40 | DRG 948 ==
LOC: FB.MS 12:07
PROVIDERS: ADMIT Family Medicine; ATTEND Family Medicine
DX: R53.1 Weakness (principal); C17.0 Malignant neoplasm of duodenum; C18.7 Malignant neoplasm of sigmoid colon; Z51.5 Encounter for palliative care; H91.90 Unspecified hearing loss, unspecified ear; H54.7 Unspecified visual loss; M19.90 Unspecified osteoarthritis, unspecified site; Z20.822 Contact with and (suspected) exposure to COVID-19; I12.9 Hypertensive chronic kidney disease with stage 1 through stage 4 chronic kidney disease, or unspecified chronic kidney disease; N18.30 Chronic kidney disease, stage 3 unspecified; F32.9 Major depressive disorder, single episode, unspecified; M85.80 Other specified disorders of bone density and structure, unspecified site; K21.9 Gastro-esophageal reflux disease without esophagitis; K52.9 Noninfective gastroenteritis and colitis, unspecified; Z66 Do not resuscitate; M25.461 Effusion, right knee; E78.5 Hyperlipidemia, unspecified; Z96.643 Presence of artificial hip joint, bilateral; E86.0 Dehydration; Z88.6 Allergy status to analgesic agent; Z79.899 Other long term (current) drug therapy; Z98.49 Cataract extraction status, unspecified eye
CPT/HCPCS: 36415; 80048; 87230; 94760; 97110-GO; 97110-GP; 97116-GP; 97162-GP; 97166-GO; 97530-GO; 97530-GP; 97535-GO; 99305; 99307; 99308; 99315; A9270-GY; J3480; J7120; J8540; Q0164; U0002